=== PATIENT | female | born 1960 | race Caucasian/White ===

== ENCOUNTER 2023-11-27 10:57 | Outpatient (AMB) | payer MEDICARE, MEDICAID, SELFPAY ==
--- NOTE | 2023-11-27 11:00 | A.OFFVIS_ITS ---
Vital Signs 11/27/23 11:04 Height 5 ft 2 in Weight 203 lb 4 oz BMI 37.2 BP 117/71 Blood Pressure Location Lt brachial Position Sitting Pulse 66 Pulse Source Pulse Oximeter Pulse Oximetry (%) 98 Oxygen Delivery Method Room Air Intake Visit Reasons: Lumbar degenerative disc Material Cutter Required: Yes Material Cutter Language: Bahraini Accompanied by: Other Relationship Allergies No Known Allergies Allergy (Verified 11/27/23 11:14) HPI HPI Lumbar degenerative disc: Details: Patient is a pleasant 63 years old Bahraini female with prior history of lumbar degenerative disc disease, arthritis, gout, headaches, diabetes (A1C=8.5), obesity, CKD stage 2, presents today with left shoulder pain with radiation into her left side of the neck. Denies any past or recent trauma, injury or falls. Right hand dominant. Patient reports left shoulder pain for 6 months and chronic left hand numbness and tingling in left thumb, 2nd and 3rd fingers. Patient has difficulty with overhead reaches or reaching her back pockets. She reports difficulty putting on her clothes or doing her hair, difficulty sleeping on her left side or function normally with ADLs. Patient reports she underwent EMG studies several years ago at [facility]. She reports left hand with progressive weakness and difficulty holding, pulling or lifting objects. Reports minimal neck pain and states pain is localized to anterior and posterior aspects of left shoulder. She also reports chronic low back pain and mid back pain with radiation into her flank regions bilaterally. Denies any fever, chills, weight loss, dizziness, chest pain, shortness of breaths, gait imbalance, bladder or bowel dysfunction or saddle anesthesia. Location: Left shoulder, neck, left fingers numbness and tingling, back tenderness Duration: Shoulder~6 months, left hand ~chronic on and off, back~chronic Characteristics of symptom or complaint: Aching, sore, dull, tingling, numbness, heavy, shooting Aggravating or associated factors: Movements, lifting, pulling, overhead and backside reaches Relieving factors: Rest, activity modifications, topical applicatoins Treatment: None [facility] Medical History (Updated 11/29/23 @ 22:10 by VICKY Ortega) Epigastric pain Hyperuricemia Stage 2 chronic kidney disease Type 2 diabetes mellitus Lumbar degenerative disc disease Hyperlipidemia Hypertension Left cervical radiculopathy Review of Systems Const All systems reviewed & are unremarkable except as noted in HPI and below Reports as per HPI, Denies body aches, Denies chills, Reports difficulty sleeping, Reports fatigue, Denies fever(s), Reports headache(s), Denies malaise, Denies night sweats and Reports weakness (left hand) ENT Reports headache(s), Denies nasal congestion, Reports neck pain, Denies sinus pain and Denies sore throat Card Denies chest pain at rest, Denies claudication and Denies palpitations Resp Denies cough Denies hematuria, Denies difficulty voiding, Denies dysuria and Denies urinary incontinence Musc Reports back pain, Denies myalgias, Reports arthralgias, Denies joint swelling, Reports limited range of motion, Reports neck pain, Reports numbness, Reports radiating pain into limb and Reports stiffness Neuro Reports headache(s), Reports numbness and Reports weakness (left hand) Endo Reports fatigue and Denies palpitations Physical Exam Vital Signs: Last Vital Signs Pulse 66 11/27/23 11:04 BP 117/71 11/27/23 11:04 Pulse Ox 98 11/27/23 11:04 Oxygen Delivery Method Room Air 11/27/23 11:04 BMI result Body Mass Index 37.2 General: Appears afebrile. Alert and oriented. Mood and affect appropriate. Follows and participates in conversation appropriately. Respiratory effort is unlabored. No cough. No nasal discharge. Able to transition from sit to stand unassisted. Ambulates with bilaterally normal heel strike and toe off. Neck Neck: Yes no lymphadenopathy, Yes supple, No anterior neck swelling, Yes no JVD and Yes prominent dorsocervical fat pad General: Yes CVA tenderness (bilateral) Back/Spine/Pelvis Back: CVA tenderness (bilateral) Cervical Spine: cervical muscular tenderness, pain with cervical ROM (left lateral rotation and bending), cervical spasm (TTP to bilateral trapezius muscles) and No Cervical spine tenderness Thoracic/Lumbar Spine: thoracic and lumbar spine normal to inspection, No Thoracic/lumbar spine scar(s), Lasegue's sign negative, straight leg raise negative bilaterally, paraspinal muscle tenderness, No thoracic spinal tenderness and lumbar spinal tenderness at L4 and at L5 Pelvis: no buttock tenderness Sacroiliac joints: bilaterally nontender Extrem General: Yes capillary refill normal, Yes no clubbing, cyanosis or edema and Yes no calf tenderness Left upper extremity: shoulder/upper arm (Limited ROM, difficulty with overhead reach or reaching her back pockets) Details: inspection abnormal, tenderness Location: of the A-C joint, over the biceps tendon and over the subacromial bursa and crepitus; no swelling, no ecchymosis, no deformity and no unsual warmth and hand (+Phales test, 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 IMPRESSION: 1. Very limited examination secondary to motion and patient body habitus without discrete pancreatic lesions. Consider a repeat imaging if clinically deemed appropriate. 2. Hepatic steatosis. 3. Nonspecific T2 dark bandlike signal in the posterior surface of the right kidney with associated cortical thinning, possibly scarring. Assessment & Plan Assessment & Plan (1) Left shoulder pain: Code(s): M25.512 - Pain in left shoulder Category: Medical (2) Numbness and tingling of left upper extremity: Code(s): R20.0 - Anesthesia of skin; R20.2 - Paresthesia of skin Category: Medical (3) Bilateral flank pain: Code(s): R10.9 - Unspecified abdominal pain Category: Medical Plan: Will obtain Bilateral Renal US to further evaluate mid back and flank pain with +CVA tenderness. (4) Cervicalgia: Code(s): M54.2 - Cervicalgia Category: Medical (5) Lumbar degenerative disc disease: Code(s): M51.36 - Other intervertebral disc degeneration, lumbar region Category: Medical Plan Left shoulder xray to assess degree of arthritis. Discussed interventional treatments including diagnostic injections for potential neuromodulation, Sprint PNS trial, or RFA procedures. Given current A1C=8.5, patient is not candidate for therapeutic injections at this time. Neurodiagnostic studies to rule our carpal tunnel syndrome vs cervical radiculopathy. Short script of tramadol provided today for moderate-severe pain. Side effects and precautions were discussed with patient and family. All questions and concerns have been answered and patient agreed with the plan. Follow up for xray/EMG results and sooner as needed. Orders: Orders XR shoulder LT min 2V 11/27/23 M25.512 - Pain in left shoulder NE nerve conduction velocity 11/27/23 R20.0 - Anesthesia of skin, R20.2 - Paresthesia of skin NE electromyogram (EMG) 11/27/23 R20.0 - Anesthesia of skin, R20.2 - Paresthesia of skin US renal BI 11/27/23 E11.9 - Type 2 diabetes mellitus without complications, N18.2 - Chronic kidney disease, stage 2 (mild), R10.9 - Unspecified abdominal pain Medications: New tramadol 50 mg PO BID 10 days PRN 20 tabs 0RF pain (scale score 7-10) M25.512 - Pain in left shoulder Coding Level of Care Code New Pt Level 4 (98440) Diagnoses Left shoulder pain M25.512 Numbness and tingling of left upper extremity R20.0; R20.2 Bilateral flank pain R10.9 Cervicalgia M54.2 Lumbar degenerative disc disease M51.36
[2023-11-27 11:04] VITALS: BP 117/71; PULSE 66; O2SAT 98; BMI 37.2
== END 2023-11-27 11:53 | disposition home or self-care (01) ==
PROVIDERS: PCP Physician Assistant; Visit Provider Nurse Practitioner Family
DX: M25.512 Pain in left shoulder (principal); R20.0 Anesthesia of skin; R20.2 Paresthesia of skin; R10.9 Unspecified abdominal pain; M54.2 Cervicalgia; M51.36 Other intervertebral disc degeneration, lumbar region
CPT/HCPCS: 99204

== ENCOUNTER 2023-11-27 10:57 | Outpatient (REF) | payer MEDICARE, MEDICAID, SELFPAY ==
--- NOTE | ~2023-11-27 | XR_ITS ---
EXAMINATION: XR SHOULDER, LEFT CLINICAL INFORMATION: Pain in the left shoulder COMPARISON: None available. TECHNIQUE: AP external rotation, Grashey, scapular Y, and axillary views of the left shoulder. FINDINGS: Mild osteoarthritis of the glenohumeral joint with small marginal osteophytes without joint space narrowing. Mild osteoarthritis of the acromioclavicular joint. Surrounding bones and soft tissues unremarkable. XR/XR shoulder LT min 2V IMPRESSION: Mild osteoarthritis of the left shoulder. Electronically signed by: Colin Parada MD 12/03/2023 10:05 PM EDT
== END 2023-11-27 10:58 | disposition home or self-care (01) ==
LOC: HO.XRAY 10:57
PROVIDERS: PCP Physician Assistant; Visit Provider Nurse Practitioner Family
DX: M25.512 Pain in left shoulder (principal); R20.0 Anesthesia of skin; R20.2 Paresthesia of skin
CPT/HCPCS: 73030; 99202

== ENCOUNTER 2023-12-09 12:53 | Outpatient (REF) | payer MEDICARE, MEDICAID, SELFPAY ==
--- NOTE | ~2023-12-09 | US_ITS ---
EXAMINATION: US RETROPERITONEAL LIMITED (RENAL ONLY) CLINICAL INFORMATION: Type 2 diabetes mellitus.. COMPARISON: Ultrasound abdomen October 08, 2021. MR abdomen January 03, 2022 TECHNIQUE: Grayscale and color Doppler ultrasound examination of kidneys FINDINGS: RIGHT KIDNEY: 10.3 x 4.9 x 5.7 cm (SAG x AP x TRV). The kidney is normal in size, contour, and echogenicity. Renal cortical thickness is normal. No calculi or suspicious focal parenchymal lesions. Bosniak one anechoic cyst lower pole measuring 5.3 cm. No follow-up imaging is recommended for simple renal cyst. Mild dilatation of renal pelvis and calyces, mild hydronephrosis. LEFT KIDNEY: 11.1 x 4.2 x 4.8 cm (SAG x AP x TRV). The kidney is normal in size, contour, and echogenicity. Renal cortical thickness is normal. No calculi or focal parenchymal lesions. Mild fullness of left renal pelvis. No dilatation of the calyces. No hydronephrosis.. US/US renal BI IMPRESSION: 1. Mild hydronephrosis of right kidney. 2. Mild fullness of left renal pelvis. No hydronephrosis of left kidney. Electronically signed by: Bryce Espinoza MD 12/09/2023 04:21 PM EDT
== END 2023-12-09 12:54 | disposition home or self-care (01) ==
LOC: HO.US 12:53
PROVIDERS: PCP Physician Assistant; Visit Provider Nurse Practitioner Family
DX: R10.9 Unspecified abdominal pain (principal); N18.2 Chronic kidney disease, stage 2 (mild); E11.9 Type 2 diabetes mellitus without complications
CPT/HCPCS: 76775

== ENCOUNTER 2023-12-17 13:31 | Outpatient (REF) | payer MEDICARE, MEDICAID, SELFPAY ==
--- NOTE | 2023-12-17 13:35 | EMG_ITS ---
Chief complaint: Left upper extremity numbness and tingling for the last 6 months Reason for referral: Evaluate for radiculopathy Referred by: Mercy Bustamante NP Procedure done: Left upper extremity NCS/EMG Precautions and/or limitations: None The limb temperature was monitored continuously and remained between 32-36 degrees C during the performance of the NCS. Nerve Conduction Studies Anti Sensory Summary Table ?Stim Site NR Onset (ms) Norm Onset (ms) Peak (ms) Norm Peak (ms) O-P Amp (?V) Norm O-P Amp Site1 Site2 Delta-0 (ms) Dist (cm) Austin (m/s) Norm Austin (m/s) Left Median Anti Sensory (2nd Digit) Wrist ? 4.3 5.3 <3.6 8.2 >10 Wrist 2nd Digit 4.3 14.0 33 Left Radial Anti Sensory (Thumb) Forearm ? 1.7 2.3 <3.1 18.0 Forearm Thumb 1.7 0.0 Left Ulnar Anti Sensory (5th Digit) Wrist ? 0.9 3.4 <3.7 36.7 >15.0 Wrist 5th Digit 0.9 14.0 156 Motor Summary Table ?Stim Site NR Onset (ms) Norm Onset (ms) O-P Amp (mV) Norm O-P Amp iAmp (mV) Amp (1st) (%) Site1 Site2 Delta-0 (ms) Dist (cm) Austin (m/s) Norm Austin (m/s) Left Median Motor (Abd Poll Brev) Wrist ? 6.2 <3.9 5.0 >4.5 5.9 100.0 Elbow Wrist 4.2 20.0 48 >45 Elbow ? 10.4 4.7 5.6 94.0 Left Ulnar Motor (Abd Dig Minimi) Wrist ? 2.7 <3.0 8.4 >5 10.4 100.0 B Elbow Wrist 3.4 18.5 54 >45 B Elbow ? 6.1 7.8 10.3 92.9 A Elbow B Elbow 1.6 10.0 62 >45 A Elbow ? 7.7 7.6 10.2 90.5 EMG ?Side Muscle Nerve Root Ins Act Fibs Psw Amp Dur Poly Recrt Int Pat Comment Left 1stDorInt Ulnar C8-T1 Nml Nml Nml Nml Nml 0 Nml Complete Left FlexCarRad Median C6-7 Nml Nml Nml Nml Nml 0 Nml Complete Left Biceps Musculocut C5-6 Nml Nml Nml Nml Nml 0 Nml Complete Left Triceps Radial C6-7-8 Nml Nml Nml Nml Nml 0 Nml Complete Left Deltoid Axillary C5-6 Nml Nml Nml Nml Nml 0 Nml Complete FINDINGS: Left median motor nerve showed prolonged distal latency, normal amplitude and normal conduction velocity. Left median sensory nerve showed prolonged peak latencies and small amplitude. All other nerves tested were within normal. Concentric needle EMG was performed in selected muscles of the left upper extremity. Study did not reveal signs of electric abnormalities as shown in the table above. IMPRESSION: 1. This is an abnormal study. 2. There is electrodiagnostic evidence for left moderate-severe median neuropathy at the wrist, consistent with carpal tunnel syndrome. 3. There is no electrodiagnostic evidence for ulnar neuropathy, brachial plexopathy, or cervical radiculopathy. Thank you for your kind referral. Vera Rolle MD, THEA Board Certified, [place] Board of Physical Medicine and Rehabilitation (ABPMR) Board Certified, [place] Board of Electrodiagnostic Medicine (ABEM) CODIN [id number] MTDD
== END 2023-12-17 13:32 | disposition home or self-care (01) ==
LOC: HO.NEURO 13:31
PROVIDERS: PCP Physician Assistant; Visit Provider Nurse Practitioner Family
DX: R20.0 Anesthesia of skin (principal); R20.2 Paresthesia of skin
CPT/HCPCS: 95886; 95909

== ENCOUNTER → 2023-12-17 13:35 | Outpatient (BNV) | payer MEDICARE, MEDICAID, SELFPAY | PROVIDERS: PCP Physician Assistant; Visit Provider Physical Medicine & Rehabilitation | DX: G56.02 Carpal tunnel syndrome, left upper limb (principal) | CPT/HCPCS: 95886; 95909 ==

== ENCOUNTER 2024-01-19 11:13 | Outpatient (AMB) | payer MEDICARE, MEDICAID, SELFPAY ==
[2024-01-19 11:22] VITALS: BMI 37.1
--- NOTE | 2024-01-19 11:22 | A.OFFVIS_ITS ---
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 EMG done on 12/17/23 Patient reports that she has numbness and tingling in the 1st, 2nd and 3rd digits, difficulty with gripping, grasping and lifting activities. She has not tried injections or physical therapy. 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 The patient reports that his symptoms have been present for least 1-2 years. Patient states that she finds this extremely bothersome, but that symptoms are intermittent, but daily, and worse at night. Patient states she notices her hands cramping up on a regular basis, and also states that she noticed marked weakness beginning in the last 5- 6 months. The patient states that she would prefer noninvasive treatment measures. No other acute complaints or concerns at this time. [facility] Medical History (Updated 12/17/23 @ 15:57 by VICKY Ortega) Epigastric pain Hyperuricemia Stage 2 chronic kidney disease Type 2 diabetes mellitus Lumbar degenerative disc disease Hyperlipidemia Hypertension Left cervical radiculopathy Review of Systems Const All systems reviewed & are unremarkable except as noted in HPI and below Physical Exam Vital Signs: BMI result Body Mass Index 37.1 Extrem Other: Neuro: Decreased sensation in the median nerve distribution of the left hand. Normal sensation to all other digits in the left hand today. Normal sensation in the tips of all digits of the right hand today. No thenar or intrinsic wasting. Good APB muscle firing and good finger cross. Vascular: Capillary refill brisk. ROM: Patient can make a fist and extend all their digits. Skin: No lacerations or abrasions noted. General: No ecchymosis. No erythema or evidence of infection. Results Reviewed Results Reviewed: IMPRESSION: 1. This is an abnormal study. 2. There is electrodiagnostic evidence for left moderate-severe median neuropathy at the wrist, consistent with carpal tunnel syndrome. 3. There is no electrodiagnostic evidence for ulnar neuropathy, brachial plexopathy, or cervical radiculopathy. Thank you for your kind referral. Vera Rolle MD, THEA Board Certified, [place] Board of Physical Medicine and Rehabilitation (ABPMR) Board Certified, [place] Board of Electrodiagnostic Medicine (ABEM) Assessment & Plan Assessment & Plan (1) Carpal tunnel syndrome of left wrist: Code(s): G56.02 - Carpal tunnel syndrome, left upper limb Category: Medical Plan 1. Carpal tunnel syndrome, left Symptoms intermittent, daily, worse at night Patient is educated about this condition and the treatment options available, namely surgery However, due to the patient's A1c being 8.5, we are unable to sign up for surgery today Patient is educated on the importance of diabetes management not only for healing from surgery but for her overall health Patient is educated that she should call our office when her A1c is under 8 to have a discussion about surgical intervention In the meantime, patient was provided with a Velcro wrist splint to wear with sleeping in order to help with nighttime symptoms Patient will follow-up after A1c is below 8.0 for discussion of surgical intervention, sooner with any acute concerns Coding Level of Care Code New Pt Level 3 (17513) Diagnoses Carpal tunnel syndrome of left wrist G56.02
== END 2024-01-19 11:56 | disposition home or self-care (01) ==
LOC: HO.HOS 11:14
PROVIDERS: PCP Physician Assistant
DX: G56.02 Carpal tunnel syndrome, left upper limb (principal)
CPT/HCPCS: 99203

== ENCOUNTER → 2024-01-19 11:13 | Outpatient (BNVA) | payer MEDICARE, MEDICAID, SELFPAY | PROVIDERS: PCP Physician Assistant | DX: G56.12 Other lesions of median nerve, left upper limb (principal); G56.02 Carpal tunnel syndrome, left upper limb | CPT/HCPCS: 99202 ==

== ENCOUNTER 2024-01-27 13:53 | Outpatient (AMB) | payer MEDICARE, MEDICAID, SELFPAY ==
--- NOTE | 2024-01-27 13:59 | MHC.OFFVIS ---
Intake Visit Reasons: hydronephrosis without stones Intake Note: New Patient is present for Hydronephrosis without Stones Antibiotic Allergy: None Blood Thinner: None Renal US: 12/09/23 Family History: Bladder Cancer: None Prostate Cancer: None Community Outreach Coordinator Required: Yes Community Outreach Coordinator Language: Austrian Community Outreach Coordinator Services: Community Outreach Coordinator Present Childrens Club Attendant: Childrens Club Attendant Present Accompanied by: Family/Other Allergies No Known Allergies Allergy (Verified 01/27/24 14:02) HPI Comments Details: Bettina is a pleasant Austrian-speaking female. She is a patient of Dr. Akins. She is seen for the following urologic conditions - hydronephrosis Assisted Austrian translation using [employer] No symptoms Plan on laboratory review with Lasix renogram Hydronephrosis Detected during renal ultrasound Ultrasound - 12/07 Mild hydronephrosis of right kidney Creatinine - not available Recommend creatinine with Lasix renogram [facility] Medical History (Updated 12/17/23 @ 15:57 by VICKY Ortega) Epigastric pain Hyperuricemia Stage 2 chronic kidney disease Type 2 diabetes mellitus Lumbar degenerative disc disease Hyperlipidemia Hypertension Left cervical radiculopathy Review of Systems Const Denies chills and Denies fever(s) Card Reports no additional complaints and Denies syncope Resp Denies cough GI Denies abdominal pain and Denies heartburn Reports as per HPI and Denies change in libido Neuro Denies syncope Psych Denies change in libido Endo Denies change in libido Physical Exam Const General: cooperative, healthy appearing, comfortable and no acute distress Orientation/consciousness: patient oriented x3 HEENT Face and sinus: Yes normal facial exam Mouth: moist mucous membranes Neck Neck: Yes normal visual inspection, Yes full ROM and Yes trachea midline Chest Chest palpation & inspection: normal inspection of the chest Resp Effort & Inspection: normal respiratory effort, able to speak in complete sentences and no respiratory distress GI Inspection: Yes normal to inspection Back/Spine/Pelvis Cervical Spine: normal cervical lordosis Thoracic/Lumbar Spine: thoracic and lumbar spine normal to inspection Skin General skin exam: no rashes or lesions noted Neuro General: patient oriented x3, gait normal, tone normal and moves all extremities Extrem General: Yes normal to inspection and Yes capillary refill normal Assessment & Plan Assessment & Plan (1) Hydronephrosis: Code(s): N13.30 - Unspecified hydronephrosis Category: Medical Plan Lasix renogram Orders: Orders NM renal flow w pharm int Today N13.30 - Unspecified hydronephrosis Blood Urea Nitrogen Today N13.30 - Unspecified hydronephrosis, R39.15 - Urgency of urination Creatinine Today N13.30 - Unspecified hydronephrosis, R39.15 - Urgency of urination Patient Instructions: Imaging studies, laboratory and physical exam results were discussed and reviewed in detail. No major barriers to patient understanding were identified. An opportunity to ask questions regarding the treatment plan was provided. All questions were answered. The patient expressed understanding and agreement with the above treatment plan. The patient is aware they should contact our office by phone for worsening of their current condition or the appearance of new urologic symptoms. Compliance is encouraged with any medications and followup testing that is ordered. It is a privilege to participate in the urologic care of your patient. If you have any questions or concerns regarding treatment for the above conditions, or other urologic issues, please do not hesitate to contact me. The office telephone contact is [phone]. This note is constructed using voice recognition software. While every effort has been made to ensure accuracy audiovisual librarian errors may have been included. Yours sincerely, Dr Obi Gamboa MD, THEA [facility] Urology Providers of Expert, Compassionate Care for the Genitourinary System Coding Level of Care Code New Pt Level 4 (84919) Diagnoses Hydronephrosis N13.30
== END 2024-01-27 14:35 | disposition home or self-care (01) ==
PROVIDERS: PCP Physician Assistant; Visit Provider Urology
DX: N13.30 Unspecified hydronephrosis (principal)
CPT/HCPCS: 99204

== ENCOUNTER → 2024-01-27 13:53 | Outpatient (BNVA) | payer MEDICARE, MEDICAID, SELFPAY | PROVIDERS: PCP Physician Assistant; Visit Provider Urology | DX: N13.30 Unspecified hydronephrosis (principal) | CPT/HCPCS: 99202 ==

== ENCOUNTER → 2024-03-03 10:11 | Outpatient (REF) | payer MEDICARE, MEDICAID, SELFPAY ==
--- NOTE | ~2024-03-03 | NM_ITS ---
EXAMINATION: RENAL DYNAMIC IMAGING STUDY WITH LASIX CLINICAL INFORMATION: Unspecified hydronephrosis. CORRELATION: Retroperitoneal ultrasound dated December 09, 2023. TECHNIQUE: Serial gamma scintillation camera images were obtained over the posterior trunk during the initial transit and subsequent distribution of a bolus intravenous injection of 10 mCi of Tc-99m DTPA. At 30 minutes later, 40 mg of Lasix was administered intravenously and an additional 30 minutes of images obtained. FINDINGS: Initial rapid sequence images show prompt but relatively less perfusion to the right in comparison to the left. On the subsequent images: - Left kidney: There is normal parenchymal uptake with peak followed by normal corticomedullary transit with expected accumulation and spontaneous clearance from the left renal collecting system. - Right kidney: The right kidney is relatively smaller with normal radiotracer uptake and peak followed by corticomedullary transit. There is minimal to no demonstrable spontaneous clearance from the right renal collecting system with continued radiotracer accumulation. There is moderate response following Lasix administration. The T-1/2 washout times following Lasix administration are: Left not applicable and right 20.2 minutes. The relative function of the two kidneys based on the 2-3 minute images are: Left 73% and right 27%. NM/NM renal flow w pharm int IMPRESSION: LEFT KIDNEY: Normal function. RIGHT KIDNEY: Significantly less functional contribution related to the left. Preserved parenchymal function and dilated but nonobstructing collecting system. Electronically signed by: Barbara Mason MD 03/10/2024 12:22 PM ALE[facility]A
[2024-03-03 12:15] LABS: Blood Urea Nitrogen 31 mg/dL (9-16); Estimated Glomerular Filt Rate 32
== END ==
LOC: HO.NUCMED 10:11
PROVIDERS: PCP Physician Assistant; Visit Provider Urology
DX: R39.15 Urgency of urination (principal); N13.30 Unspecified hydronephrosis
CPT/HCPCS: 36415; 78708; 82565; 84520; A9539; J1940

== ENCOUNTER 2024-03-23 10:56 | Outpatient (AMB) | payer MEDICARE, MEDICAID, SELFPAY ==
--- NOTE | 2024-03-23 11:30 | MHC.OFFVIS ---
Intake Visit Reasons: 6W Lasix Renogram(set) Intake Note: Patient is present for 6W LASIX RENOGRAM Urology Medication:ALLOPURINOL Antibiotic Allergy:NONE Blood Thinner:NONE Drawbench Operator Helper Required: No Allergies No Known Allergies Allergy (Verified 03/23/24 11:31) HPI Comments Details: Bettina is a pleasant Azerbaijani-speaking female. She is a patient of Dr. Akins. She is seen for the following urologic conditions - hydronephrosis Assisted [place]ani translation using [employer] translate Renogram performed The relative function of the two kidneys based on the 2-3 minute images are: Left 73% and right 27%. LEFT KIDNEY: Normal function. RIGHT KIDNEY: Significantly less functional contribution related to the left. Preserved parenchymal function and dilated but nonobstructing collecting system. Creatinine 1.6 Refer Nephrology Six-month follow-up repeat renogram Hydronephrosis Detected during renal ultrasound Ultrasound - 12/07 Mild hydronephrosis of right kidney Creatinine - not available Recommend creatinine with Lasix renogram PFSH Medical History Epigastric pain Hyperuricemia Stage 2 chronic kidney disease Type 2 diabetes mellitus Lumbar degenerative disc disease Hyperlipidemia Hypertension Left cervical radiculopathy Review of Systems Const Denies chills and Denies fever(s) Card Reports no additional complaints and Denies syncope Resp Denies cough GI Denies abdominal pain and Denies heartburn Reports as per HPI and Denies change in libido Neuro Denies syncope Psych Denies change in libido Endo Denies change in libido Physical Exam Const General: cooperative, healthy appearing, comfortable and no acute distress Orientation/consciousness: patient oriented x3 HEENT Face and sinus: Yes normal facial exam Mouth: moist mucous membranes Neck Neck: Yes normal visual inspection, Yes full ROM and Yes trachea midline Chest Chest palpation & inspection: normal inspection of the chest Resp Effort & Inspection: normal respiratory effort, able to speak in complete sentences and no respiratory distress GI Inspection: Yes normal to inspection Back/Spine/Pelvis Cervical Spine: normal cervical lordosis Thoracic/Lumbar Spine: thoracic and lumbar spine normal to inspection Skin General skin exam: no rashes or lesions noted Neuro General: patient oriented x3, gait normal, tone normal and moves all extremities Extrem General: Yes normal to inspection and Yes capillary refill normal Assessment & Plan Assessment & Plan (1) Kidney atrophy: Code(s): N26.1 - Atrophy of kidney (terminal) Category: Medical (2) Hydronephrosis: Code(s): N13.30 - Unspecified hydronephrosis Category: Medical Plan Six-month follow-up repeat Lasix renogram Orders: Orders NM renal flow w pharm int 6 Months N13.30 - Unspecified hydronephrosis, N26.1 - Atrophy of kidney (terminal) Referrals Nephrology Referral N26.1 - Atrophy of kidney (terminal) Patient Instructions: Imaging studies, laboratory and physical exam results were discussed and reviewed in detail. No major barriers to patient understanding were identified. An opportunity to ask questions regarding the treatment plan was provided. All questions were answered. The patient expressed understanding and agreement with the above treatment plan. The patient is aware they should contact our office by phone for worsening of their current condition or the appearance of new urologic symptoms. Compliance is encouraged with any medications and followup testing that is ordered. It is a privilege to participate in the urologic care of your patient. If you have any questions or concerns regarding treatment for the above conditions, or other urologic issues, please do not hesitate to contact me. The office telephone contact is [phone]. This note is constructed using voice recognition software. While every effort has been made to ensure accuracy rn internship errors may have been included. Yours sincerely, Dr Obi Gamboa MD, [facility] - Urology Providers of Expert, Compassionate Care for the Genitourinary System Coding Level of Care Code Est Pt Level 3 (72221) Diagnoses Kidney atrophy N26.1 Hydronephrosis N13.30
== END 2024-03-23 11:57 | disposition home or self-care (01) ==
PROVIDERS: PCP Physician Assistant; Visit Provider Urology
DX: N26.1 Atrophy of kidney (terminal) (principal); N13.30 Unspecified hydronephrosis
CPT/HCPCS: 99213

== ENCOUNTER → 2024-03-23 10:56 | Outpatient (BNVA) | payer MEDICARE, MEDICAID, SELFPAY | PROVIDERS: PCP Physician Assistant; Visit Provider Urology | DX: N26.1 Atrophy of kidney (terminal) (principal); N13.30 Unspecified hydronephrosis | CPT/HCPCS: 99212 ==

== ENCOUNTER 2024-04-07 13:04 | Outpatient (REF) | payer MEDICARE, MEDICAID, SELFPAY | END 2024-04-07 13:05 | disposition home or self-care (01) | LOC: HO.LAB 13:04 | PROVIDERS: PCP Physician Assistant; Referring Provider Urology; Visit Provider Internal Medicine Hypertension Specialist | DX: E11.22 Type 2 diabetes mellitus with diabetic chronic kidney disease (principal); I12.9 Hypertensive chronic kidney disease with stage 1 through stage 4 chronic kidney disease, or unspecified chronic kidney disease; N18.30 Chronic kidney disease, stage 3 unspecified; Z79.4 Long term (current) use of insulin | CPT/HCPCS: 99202 ==

== ENCOUNTER 2024-04-07 13:04 | Outpatient (AMB) | payer MEDICARE, MEDICAID, SELFPAY ==
--- NOTE | 2024-04-07 13:08 | HO.NEPHOV ---
Vital Signs 04/07/24 13:09 Height 5 ft 2 in Weight 209 lb BMI 38.2 BP 100/64 Blood Pressure Location Lt brachial Position Sitting Pulse 67 Pulse Source Pulse Oximeter Pulse Oximetry (%) 95 Oxygen Delivery Method Room Air Intake Visit Reasons: INP: Atrophy of kidney (terminal) Assistant Finance Director Required: Yes Assistant Finance Director Name: Hector [id number] Accompanied by: Self / Same As Patient Allergies No Known Allergies Allergy (Verified 04/07/24 13:11) Medication List - Last Reconciled 04/07/24 by Abdifatah Estrada MD allopurinol 300 mg PO DAILY aspirin 81 mg PO DAILY atorvastatin 80 mg PO BEDTIME bisoprolol fumarate 2.5 mg PO DAILY calcium carbonate-vitamin D3 500 mg-5 mcg (200 unit) (Oysco 500/D) 1 tab PO DAILY colchicine 0.6 mg PO DAILY dapagliflozin propanediol (Farxiga) 10 mg PO DAILY glimepiride 4 mg PO QAM insulin glargine-yfgn units subcut isosorbide mononitrate ER 30 mg PO DAILY lisinopril 20 mg PO DAILY semaglutide (Ozempic) mg subcut QWEEK vitamin E mixed units PO HPI Comments Details: Bettina is a pleasant 63-year-old woman referred for a while patient of CKD. She has had diabetes mellitus for more than 15 years. In 03/04/2024 she had a serum creatinine of 1.6 and EGFR of 30 mL/minute. She was found to have mild hydronephrosis on right kidney and mild fullness of the left pelvis without hydronephrosis. Right kidney measured 10.3 cm left kidney measured 11.1 cm. This was followed by a renal scan which revealed a normal left kidney and significantly less functional contribution from the right kidney. She was seen by Urology and referred for further evaluation. Assistant Finance Director service was used. She has been on Ozempic for quite some time. She was lost about 30 lb. Blood pressure has been rather low and she has had episodes of lightheadedness. No history of syncope. No shortness of breath no chest pain no urinary symptoms no fever no rash no edema. No rash no joint pains. [facility] Medical History Epigastric pain Hyperuricemia Stage 2 chronic kidney disease Type 2 diabetes mellitus Lumbar degenerative disc disease Hyperlipidemia Hypertension Left cervical radiculopathy Review of Systems Const Denies fever(s) and Denies weight loss Card Denies chest pain Resp Denies cough and Denies hemoptysis GI Denies abdominal pain, Denies diarrhea and Denies nausea Musc Denies back pain Neuro Denies focal weakness Physical Exam Vital Signs: Last Vital Signs Pulse 67 04/07/24 13:09 BP 100/64 04/07/24 13:09 Pulse Ox 95 04/07/24 13:09 Oxygen Delivery Method Room Air 04/07/24 13:09 BMI result Body Mass Index 38.2 Comfortable Neck supple no JVD. Lungs entry equal no rales. Heart S1-S2 heard no gallop or rub. Abdomen soft nontender. Neuro alert awake oriented. No asterixis. Extremities no edema. Results Reviewed Results Reviewed: RIGHT KIDNEY: 10.3 x 4.9 x 5.7 cm (SAG x AP x TRV). The kidney is normal in size, contour, and echogenicity. Renal cortical thickness is normal. No calculi or suspicious focal parenchymal lesions. Bosniak one anechoic cyst lower pole measuring 5.3 cm. No follow-up imaging is recommended for simple renal cyst. Mild dilatation of renal pelvis and calyces, mild hydronephrosis. LEFT KIDNEY: 11.1 x 4.2 x 4.8 cm (SAG x AP x TRV). The kidney is normal in size, contour, and echogenicity. Renal cortical thickness is normal. No calculi or focal parenchymal lesions. Mild fullness of left renal pelvis. No dilatation of the calyces. No hydronephrosis.. US/US renal BI IMPRESSION: 1. Mild hydronephrosis of right kidney. 2. Mild fullness of left renal pelvis. No hydronephrosis of left kidney. Electronically signed by: Bryce Espinoza MD 12/09/2023 04:21 PM EDT RP FINDINGS: Initial rapid sequence images show prompt but relatively less perfusion to the right in comparison to the left. On the subsequent images: - Left kidney: There is normal parenchymal uptake with peak followed by normal corticomedullary transit with expected accumulation and spontaneous clearance from the left renal collecting system. - Right kidney: The right kidney is relatively smaller with normal radiotracer uptake and peak followed by corticomedullary transit. There is minimal to no demonstrable spontaneous clearance from the right renal collecting system with continued radiotracer accumulation. There is moderate response following Lasix administration. The T-1/2 washout times following Lasix administration are: Left not applicable and right 20.2 minutes. The relative function of the two kidneys based on the 2-3 minute images are: Left 73% and right 27%. NM/NM renal flow w pharm int IMPRESSION: LEFT KIDNEY: Normal function. RIGHT KIDNEY: Significantly less functional contribution related to the left. Preserved parenchymal function and dilated but nonobstructing collecting system. Electronically signed by: Barbara Mason MD 03/10/2024 12:22 PM [facility] [employer] Nephrology Results: BUN 31 mg/dL (9-16) H 03/03/24 Creatinine 1.61 mg/dL (0.5-1.4) H 03/03/24 Renal US 12/09/23 Assessment & Plan Assessment & Plan (1) CKD (chronic kidney disease) stage 3, GFR 30-59 ml/min: Code(s): N18.30 - Chronic kidney disease, stage 3 unspecified Category: Medical Plan 62-year-old woman with longstanding diabetes mellitus and obesity has CKD 3B. She probably has underlying diabetic kidney disease. Renal ultrasonogram revealed mild hydronephrosis but I doubt if obstructive uropathy is the main contributing factor. Blood pressure has been well controlled. In fact office reading was slightly low today. There could be a component of hypoperfusion. Recommendations Workup initiated for CKD. Check urine for routine urinalysis and urine protein creatinine ratio. Check 24 urine collection for creatinine clearance. Optimize blood pressure. Since she is losing weight I suspect blood pressure might decrease further. If systolic blood pressure drops further I will decrease the lisinopril by 50%. Continue to avoid hypotension and avoid nephrotoxic agents. Goal is to slow the progression of renal disease. I have discussed importance of tight control of blood sugar to slow the progression. She is currently on SGLT2 inhibitor and I would continue the same. All questions were answered. Further workup will depend on the outcome of the baseline investigations. Orders: Orders Creatinine Clearance Urine 24U Today N26.1 - Atrophy of kidney (terminal) Parathyroid Hormone Intact Today N26.1 - Atrophy of kidney (terminal) Protein, 24 Hr Urine Group Today N26.1 - Atrophy of kidney (terminal) Creatinine, 24 Hr Group Today N26.1 - Atrophy of kidney (terminal) Comprehensive Met. Panel Today N26.1 - Atrophy of kidney (terminal) UA and rflx microscopic Today N26.1 - Atrophy of kidney (terminal) Uric Acid Today N26.1 - Atrophy of kidney (terminal) Coding Level of Care Code New Pt Level 4 (35777) Diagnoses CKD (chronic kidney disease) stage 3, GFR 30-59 ml/min N18.30
[2024-04-07 13:09] VITALS: BP 100/64; PULSE 67; O2SAT 95; BMI 38.2
== END 2024-04-07 13:29 | disposition home or self-care (01) ==
PROVIDERS: PCP Physician Assistant; Referring Provider Urology; Visit Provider Internal Medicine Hypertension Specialist
DX: N18.30 Chronic kidney disease, stage 3 unspecified (principal)
CPT/HCPCS: 99204

== ENCOUNTER 2024-04-12 09:52 | Outpatient (REF) | payer MEDICARE, MEDICAID, SELFPAY ==
--- OUTSIDE RECORDS SUMMARY | 2024-04-12 10:29 | XMS_ITS | Clinical Summary ---
Author Organization [facility] Address [address] [place] [address] Care Team Providers Care Concrete Curer Name Role Phone Roslyn Akins PA-C Primary Care Provider [phone] Source Comments PLEASE NOTE, if this patient is a minor, it may be UNLAWFUL to discuss sensitive information that is contained in these records (such as FAMILY PLANNING, MENTAL HEALTH or SUBSTANCE ABUSE) with the minor patient's parent or other person without the patient's specific authorization.[facility] Allergies No known active allergies Medications ascorbic acid, vitamin C, (VITAMIN C) 500 mg tabletIndication s:Acute idiopathic gout of left foot Take 1 Tab by mouth once daily 90 Tab 2 020 Active esomeprazole magnesium (NEXIUM) [address] capsule TAKE 1 CAPSULE BY MOUTH EVERY DAY NEEDED FOR HEARTBURN 90 Capsule 2 022 Active isosorbide mononitrate (IMDUR) 30 mg 24 hr tabletIndication s:Essential hypertension, benign TAKE 1 TABLET BY MOUTH EVERY MORNING 90 Tablet 2 022 Active atorvastatin (LIPITOR) 20 mg tabletIndication s:Hyperlipidemia , mixed TAKE 1 TABLET BY MOUTH EVERY NIGHT AT BEDTIME 90 Tablet 3 022 Active MISCELLANEOUS MEDICAL SUPPLY MISCIndications: Routine general medical examination at a health care facility by miscellaneous route once daily 20-30 mmHG knee high compression stockings, disp 2 pairs, dx venous insufficiency 2 Each 023 Active linaCLOtide 145 mcg capIndications:F unctional constipation Take 1 Capsule by mouth every morning before breakfast 90 Capsule 1 023 Active colchicine 0.6 mg tabletIndication s:Hyperuricemia TAKE 2 TABLETS BY MOUTH ON DAY 1 THEN 1 TABLET TWICE DAILY UNTIL GOUT FLARE RESOLVES 60 Tablet 11 024 Active traZODone (DESYREL) 50 mg tabletIndication s:Primary insomnia 1-2 tabs po qhs prn insomnia 180 Tablet 1 024 Active alcohol swabsIndications :Type 2 diabetes mellitus without complication, without long-term current use of insulin ([facility]) Use qd, dx E11.9 50 Each 11 024 Active lancets (FREESTYLE LANCETS) 28 gaugeIndications :Type 2 diabetes mellitus without complication, without long-term current use of insulin ([facility]) Freestyle lite lancets, use QD, dx E11.9 50 Each 024 Active blood sugar diagnostic stripsIndication s:Type 2 diabetes mellitus without complication, without long-term current use of insulin ([facility]) 1 Each daily. Freestyle lite strips use QD, dx E11.9 50 Each 024 Active blood-glucose meter monitoring kitIndications:T ype 2 diabetes mellitus without complication, without long-term current use of insulin ([facility]) 1 Each daily. Freestyle lite meter, disp 1, lifetime need, dx E11.9 1 Each 024 Active dapagliflozin propanediol 10 mg tabIndications:T ype 2 diabetes mellitus without complication, without long-term current use of insulin ([facility]) TAKE 1 TABLET BY MOUTH DAILY 90 Tablet 2 024 Active diclofenac sodium (VOLTAREN) 1 % gel Apply a small amount to finger joint QID 100 g 11 Active lidocaine (LIDODERM) 5 % patchIndications :Chronic left shoulder pain Apply 1 patch to the affected area for a maximum of 12 hours, followed by removal for 12 hours. 30 Patch 4 024 Active betamethasone valerate (VALISONE) 0.1 % creamIndications :Atopic dermatitis, unspecified type Apply topically 2 (two) times daily 60 g 3 Active OYSCO 500/D 500 mg-5 mcg (200 unit) per tabletIndication s:Non morbid obesity TAKE 1 TABLET BY MOUTH EVERY DAY 90 Tablet 2 Active bisoprolol (ZEBETA) 5 mg tablet TAKE 1 TABLET BY MOUTH EVERY DAY 90 Tablet 2 0[address] Active aspirin [address] tabletIndication s:Type 2 diabetes mellitus without complication, without long-term current use of insulin ([facility]) TAKE 1 TABLET BY MOUTH ONCE DAILY 90 Tablet 1 024 Active isosorbide mononitrate ER (IMDUR) 30 mg 24 hr tabletIndication s:Essential hypertension, benign TAKE 1 TABLET BY MOUTH EVERY MORNING 90 Tablet 2 024 Active insulin glargine 100 unit/mL (3 mL) penIndications:T ype 2 diabetes mellitus without complication, without long-term current use of insulin ([facility]) Inject 15 Units into the skin once daily 15 mL 5 024 Active lisinopriL 20 mg tabletIndication s:Essential hypertension, benign Take 0.5 Tablets by mouth nightly at bedtime Active clobetasoL (TEMOVATE) 0.05 % ointmentIndicati ons:Lichen sclerosus of vulva Apply topically nightly at bedtime Please apply to vulva every night for 12 weeks then taper to once or twice a week at night. 60 g 3 024 Active glimepiride (AMARYL) 4 mg tabletIndication s:Uncontrolled type 2 diabetes mellitus with hyperglycemia ([facility]) TAKE 1 TABLET BY MOUTH EVERY DAY WITH BREAKFAST 90 Tablet 2 024 Active allopurinoL (ZYLOPRIM) 300 mg tabletIndication s:Acute idiopathic gout of left foot TAKE 1 TABLET BY MOUTH EVERY DAY WITH LUNCH 90 Tablet 2 024 Active semaglutide (OZEMPIC) 1 mg/dose (4 mg/3 mL) pen injectorIndicati ons:Type 2 diabetes mellitus without complication, without long-term current use of insulin ([facility]) Inject 1 mg into the skin once a week 9 mL 4 024 Active BD JINA 2ND GEN PEN NEEDLE 32 gauge x 32 ndleIndications: Uncontrolled type 2 diabetes mellitus with hyperglycemia ([facility]) USE DIRECTED EVERY DAY 100 Each 025 Active BD JINA 2ND GEN PEN NEEDLE 32 gauge x 532 ndleIndications: Uncontrolled type 2 diabetes mellitus with hyperglycemia ([facility]) USE DIRECTED WITH LANTUS EVERY DAY 100 Each 024 2024 Discontinued Active Problems Problem Noted Date Diagnosed Date Obstructive sleep apnea of adult 11/04/2022 Multiple RIGHT thyroid nodules 03/2022 3 Stage 2 chronic kidney disease 03/11/2021 History of echocardiogram 07/01/2017, 04/2021 Overview (06/25/2021): Result type: Echocardiogram - Complete Result date: May 09, 2021 10:36 EST Result status: Modified Result title: Echo Complete Performed by: Emma Mccurdy MD on May 09, 2021 10:36 EST Verified by: Emma Mccurdy MD on May 09, 2021 10:36 EST Encounter info: [id number], [facility], One Time OP, 05/09/2021 - 05/09/2021 Contributor system: ZPower Echo Complete-Doppler, Colorflow, M-Mode Transthoracic Echocardiography Report (TTE) Patient Demographics Patient Name CINDA, Date of Study 05/09/2021 [facility] Gender Female Facility Race Ethnicity Date of 1960 Height: 62.6 inches Age 60 year(s) Weight: 238.1 pounds Accession Number [id number] BSA: 2.07 m2 Room Number BMI: 42.72 kg/m2 Referring Physician Margie BOB Interpreting Emma Mccurdy MD Physician [employer] [place] Indications Chest pain. Clinical History CM HLD HTN VEL Study Data Type of Study TTE procedure:Echo Complete-Doppler, Colorflow, M-Mode. Study Date05/09/2021 Start Time: 10:36 AM Study Location: 3300 Adult Echo Study Status: Echo lab Patient Status: Routine Technical Quality: Adequate Blood Pressure:149/85 mmHg EKG: Sinus arrhythmia HR: 76 bpm 2D Measurements LV Diastolic Dimension: 5 cm LV Systolic Dimension: 3.4 cm LV Septum Diastolic: 0.8 cm LV PW Diastolic: 1 cm AO Root Dimension: 3 cm LA Dimension: 3.4 cm LA ESV (BP):56 ml LVOT Stroke Volume: 96.88 ml LA ESV Index: 27 ml/m2 Stroke Volume Index46.8 ml/m2 LVOT: 2.2 cm Cardiac Index:3.56 l/min/m2 Ascending Aorta:2.8 cm Doppler Measurements AV Peak Velocity: 172 cm/s MV Peak E-Wave: 101 cm/s AV Peak Gradient: 11.83 mmHg MV Peak A-Wave: 84.4 cm/s MV E/A Ratio: 1.2 LVOT Peak Velocity: 114 cm/s LVOT VTI25.5 cm MV Deceleration Time: 243 msec TR Velocity:130 cm/s TR Gradient:6.76 mmHg PV Peak Velocity: 88 cm/s E' Septal Velocity: 5.88 cm/s PV Peak Gradient: 3.1 mmHg E' Lateral Velocity: 7.9 cm/s E/Med E':17.72013 E/Lat E':12.20330 Cardiac Anatomy Left Ventricle/Interventricular Septum The wall thickness of the left ventricle is normal. The left ventricle is normal size. Ejection fraction is 55-60% overall. No definite wall motion abnormalities detected. Diastolic function was indeterminant. Left Atrium/Interatrial Septum The left atrium is normal in size. An atrial septal defect cannot be excluded. Aortic Valve No significant regurgitation or stenosis. Mitral Valve No significant regurgitation. Aorta The ascending aorta and aortic root are normal in size when indexed. Right Ventricle The right ventricle is mildly dilated. Function is preserved overall. Right Atrium The right atrium is dilated. Pulmonic Valve The pulmonic valve is poorly visualized. No significant regurgitation or stenosis. Tricuspid Valve No significant regurgitation. No stenosis. Pumonary Artery The pulmonary artery systolic pressure estimation is 25-35 mmHg. Venous Structures IVC is normal in size. Inspiratory collapse is likely close to normal. Pericardium/Extracardiac No significant pericardial effusion. Summary The wall thickness of the left ventricle is normal. The left ventricle is normal size. Ejection fraction is 55-60% overall. No definite wall motion abnormalities detected. Diastolic function was indeterminant. The left atrium is normal in size. The right ventricle is mildly dilated. Function is preserved overall. The right atrium is dilated. The pulmonary artery systolic pressure estimation is 25-35 mmHg. Comparison Comparison is made to the study of June 29, 2017. Signature Echo Complete This document has an image Result type: Echocardiogram - Complete Result date: June 29, 2017 10:07 EDT Result status: Modified Result title: Echo Complete Performed by: Sue Humphrey MD on June 29, 2017 10:07 EDT Verified by: Sue Humphrey MD on June 29, 2017 10:07 EDT Encounter info: [id number], [facility], One Time OP, 06/29/2017 - 06/29/2017 Contributor system: ZPower Echo Complete This document has an image Echo Complete-Doppler, Colorflow, M-Mode Transthoracic Echocardiography Report (TTE) Patient Demographics Patient Name CINDA, Date of Study 06/29/[address] Gender Female Facility Race Ethnicity Date of 1960 Height: 63 inches Age 56 year(s) Weight: 245.01 pounds Accession Number [id number] BSA: 2.11 m2 Room Number BMI: 43.4 kg/m2 Referring Physician Margie BOB Interpreting Sue Humphrey MD Physician [employer] And Inspector Portia Sandoval [employer] Indications Chest pain. Clinical History Hypertension. Diabetes Mellitus. Hyperlipidemia. VEL on CPAP Obesity. Study Data Type of Study TTE procedure:Echo Complete-Doppler, Colorflow, M-Mode. Study Date06/29/2017 Start Time: 10:07 AM Study Location: 3300 Adult Echo Study Status: Echo lab Patient Status: Routine Technical Quality: Adequate Blood Pressure:130/78 mmHg EKG: Indeterminate HR: 68 bpm 2D Measurements LV Diastolic Dimension: 5.4 cm LV Systolic Dimension: 4.1 cm LV Septum Diastolic: 0.9 cm LV PW Diastolic: 0.9 cm AO Root Dimension: 2.8 cm LA Dimension: 3.6 cm LVOT Stroke Volume: 59.03 ml LVOT: 2 cm Stroke Volume Index27.98 ml/m2 Cardiac Index:1.9 l/min/m2 Doppler Measurements AV Peak Velocity: 164 cm/s MV Peak E-Wave: 76 cm/s AV Peak Gradient: 10.76 mmHg MV Peak A-Wave: 78 cm/s MV E/A Ratio: 0.97 LVOT Peak Velocity: 86.5 cm/s LVOT VTI18.8 cm MV Deceleration Time: 158 msec TR Velocity:263 cm/s TR Gradient:27.67 mmHg PV Peak Velocity: 113 cm/s E' Septal Velocity: 4.87 cm/s PV Peak Gradient: 5.11 mmHg E' Lateral Velocity: 8.68 cm/s E/Med E':15.88880 E/Lat E':8.61266 Cardiac Anatomy Left Ventricle/Interventricular Septum The left ventricle is normal in size, wall thickness and systolic function. The ejection fraction is 55-65%. No regional wall motion abnormalities seen. Left Atrium/Interatrial Septum The left atrium is normal in size. Aortic Valve The aortic valve is poorly visualized but probably trileaflet. There may be some mild aortic stenosis. There is no aortic insufficiency Mitral Valve The mitral valve is normal in structure and function. There is trace mitral regurgitation. Aorta The aortic root is normal in size. The ascending aorta is not well visualized. Right Ventricle The right ventricle is normal in size and function. Right Atrium The right atrium is normal in size. Pulmonic Valve The pulmonic valve is functionally normal. Tricuspid Valve The tricuspid valve is normal in structure and function. There is trace regurgitation. Pumonary Artery The pulmonary artery systolic pressure estimation is 30-35 mmHg. Venous Structures The inferior vena cava appears normal. Pericardium/Extracardiac There is no pericardial effusion. Summary The left ventricle is normal in size, wall thickness and systolic function. The ejection fraction is 55-65%. No regional wall motion abnormalities seen. Normal diastolic function. The aortic valve is poorly visualized but probably trileaflet. There may be some mild aortic stenosis. There is no aortic insufficiency. The right ventricle is normal in size and function. The tricuspid valve is normal in structure and function. There is trace regurgitation.The pulmonary artery systolic pressure estimation is 30-35 mmHg. Comparison Comparison is made to the study of January 28, 2012. There is no significant change. Signature Tinnitus of both ears 11/29/2020 Suspected COVID-19 virus infection 05/2019 Malaise and fatigue 12/06/2015 Primary insomnia 12/06/2015 Hot flashes due to menopause 12/06/2015 Microalbuminuria 05/22/2015 Venous insufficiency 03/30/2015 Essential hypertension, benign 03/15/2013 Type 2 diabetes mellitus wit hout complication, without long-term current use of insulin ([facility]) 03/15/2013 Overview (05/30/2015): Opthal exam 04/2015 Dr. Narvaez @ [facility], no retinopathy Non morbid obesity 03/15/2013 Hyperlipidemia, mixed 03/15/2013 Lumbar degenerative disc disease 03/15/2013 Knee osteoarthritis 03/15/2013 Hyperuricemia 03/15/2013 Renal cyst, right 01/2013 ultrasound 03/15/2013 Encounters Date Type Department Care Team Description 02/01/2024 3:00 PM EST Telemedicine Visit [address] [phone] Roslyn Akins PA-C Essential hypertension, benign (Primary Dx); Type 2 diabetes mellitus without complication, without long-term current use of insulin ([facility]); Non morbid obesity; Hyperlipidemia, mixed; Hyperuricemia; Microalbuminuria 02/01/2024 Travel from Last 3 Months Immunizations Name Administration Dates Next Due PNEUMOCOCCAL CONJUGATE PCV 20 (Prevnar) 11/05/19 23 PNEUMOCOCCAL POLYSACCHARIDE PPV23 03/15/2013 Social History Tobacco Use Types Packs/Day Years Used Date Smoking Tobacco: Never Smokeless Tobacco: Never Tobacco Cessation:Counseling Given: Not Answered Alcohol Use Standard Drinks/Week Comments No 0 (1 standard drink = 0.6 oz pur e alcohol) Social Connections Answer Date Recorded Connectedness 1 04/28/2023 Financial Resource Strain Answer Date R ecorded Financial Resource Strain 1 2023 Stress Answer Date Recorded Stress 1 04/28/2023 Physical Activity Answer Date Recorded Physical Activity 0 11/02/2018 Food Insecurity Answer Date Recorded Food 1 04/28/2023 Transportation Needs Answer Date Record ed Transportation 1 04/28/2023 Housing Stability Answer Date Recorded Housing 1 04/28/2023 Safety and Environment Answer Date Wilner rded Safety 1 04/28/2023 Utilities Answer Date Recorded Utilities 1 04/28/2023 Employment Answer Date Recorded Stress 0 04/28/2023 Comments No Sex and Gender Information Value Date Recorded Sex Assigned at Female 01/19/2017 5:46 PM PST Legal Sex Female 11:36 AM PDT Gender Identity Female 01/19/2017 5:46 PM PST Sexual Orientation Straight 01/19/2017 5: 46 PM PST Last Filed Vital Signs Vital Sign Reading Time Taken Comments Blood Pressure 124/82 12/15/2023 1:12 PM EDT Pulse 62 12/15/2023 1:12 PM EDT Temperature 36.7 ??C (98 ??F) 12/15/2023 1:12 PM EDT Respiratory Rate 16 12/15/2023 1:12 PM EDT Oxygen Saturation 97% 12/15/2023 1:12 PM EDT Inhaled Oxygen Concentration - - Weight 93.4 kg (206 lb) 12/15/2023 1:12 PM EDT Height 157.5 cm (5' 2 ) 11/10/2023 2:48 PM EDT Body Mass Index 37.68 11/10/2023 2:48 PM EDT Plan of Treatment Upcoming Encounters Date Type Department Care Team (Late st Contact Info) Description 04/18/2024 11:00 AM EST Telemedicine Visit [facility] [address] [place] [phone] Roslyn Akins PA-C [address] [place] [address] Health Maintenance Due Date Last Done Comments Dental Examination 1960 Imm-Zoster, Recombinant (1 of 2) 2008 Bone Density Screening 08/21/2023 Falls Prevention 08/21/2023 Diabetes HbA1c 02/10/2024 11/10/2023, 04/16, 11/04/2022, Additional history exists Alcohol and Drug Screen 03/16/2024 04/28/19 24, 04/11/2022, 09/24/2021, Additional history exists Depression Annual Screen 03/16/2024 024, 12/19/2014, 10/21/2013 (Declined) Retinopathy Screening 07/21/2024 07/22/2023 , 10/03/2022, 09/30/2021, Additional history exists Diabetes Foot Exam 11/09/2024 11/10/2023, 0 04/13/2022, 12/26/2021, Additional history exists Diabetes Microalbumin (w/Creatinine) 11/09/2024 11/10/2023, 04/29/2023, 08/06/2022, Additional history exists Lipid Screening 11/09/2024 11/10/2023, 04/16, 11/04/2022, Additional history exists Serum Creatinine 11/09/2024 11/10/2023, , 11/04/2022, Additional history exists Medicare Annual Wellness Visit 12/14/2024 1 , 07/29/2023, 04/11/2022, Additional history exists Tobacco Screening 01/31/2025 02/01/2024 Breast Cancer Screening (Mammogram) 11/24/2025 11/25/2023, 03/15/2013 (Declined) Imm-Influenza Discontinued 02/17/2014 (Decl ined), 03/15/2013 (Declined) HIV Screening Completed 10/26/2017, 02/17/2014 Hepatitis C Screening Completed 10/26/2017, 014 Imm-Pneumococcal 65+ Completed 11/04/2022, 03/15/20 13 [id number] Discontinued Imm-DTaP/Tdap/Td Discontinued Procedures Procedure Name Priority Date/Time Associated Diagnosis Comments REFERRAL SCANNED DOCUMENT 04/07/2024 3:00 AM EST REFERRAL SCANNED DOCUMENT 03/23/2024 3:00 AM EST IMAGING SCANNED DOCUMENT 03/03/2024 3:00 AM EST REFERRAL SCANNED DOCUMENT 01/27/2024 3:00 AM EST REFERRAL SCANNED DOCUMENT 01/19/2024 3:00 AM EST SCREENING MAMMOGRAM BILATERAL Routine 11/25/2023 3:00 AM EDT Encounter for screening mammogram for malignant neoplasm of breast COMPREHENSIVE METABOLIC PANEL Routine 11/10/2023 3:47 PM EDT Left cervical radiculopathy Essential hypertension, benign Hyperlipidemia, mixed Lumbar degenerative disc disease Type 2 diabetes mellitus without complication, without long-term current use of insulin ([facility]) Stage 2 chronic kidney disease Microalbuminuria Hyperuricemia LIPID PANEL Routine 11/10/2023 3:47 PM EDT Left cervical radiculopathy Essential hypertension, benign Hyperlipidemia, mixed Lumbar degenerative disc disease Type 2 diabetes mellitus without complication, without long-term current use of insulin ([facility]) Stage 2 chronic kidney disease Microalbuminuria Hyperuricemia MICROALBUMIN/CREATINI NE RATIO, URINE, RANDOM Routine 11/10/2023 3:47 PM EDT Left cervical radiculopathy Essential hypertension, benign Hyperlipidemia, mixed Lumbar degenerative disc disease Type 2 diabetes mellitus without complication, without long-term current use of insulin ([facility]) Stage 2 chronic kidney disease Microalbuminuria Hyperuricemia HEMOGLOBIN GLYCOSYLATED A1C Routine 11/10/2023 3:47 PM EDT Left cervical radiculopathy Essential hypertension, benign Hyperlipidemia, mixed Lumbar degenerative disc disease Type 2 diabetes mellitus without complication, without long-term current use of insulin ([facility]) Stage 2 chronic kidney disease Microalbuminuria Hyperuricemia EYE EXAM 07/22/2023 3:00 AM EDT ANTIBODY HIV-1&HIV-2 SINGLE RESULT Routine 10/26/2017 12:09 PM EDT Uncontrolled type 2 diabetes mellitus without complication, without long-term current use of insulin ([facility]) HEPATITIS C ANTIBODY Routine 10/26/2017 12:09 PM EDT Uncontrolled type 2 diabetes mellitus without complication, without long-term current use of insulin ([facility]) from Last 3 Months or Most Recently Relevant to Health Maintenance Results * REFERRAL SCANNED DOCUMENT (04/07/2024 3:00 AM EST) Only the most recent of4 resultswithin the time period is included. 04/07/2024 3:00 AM EST Roslyn Lukin PA-C SCAN REFERRAL Final Result * IMAGING SCANNED DOCUMENT (03/03/2024 3:00 AM EST) 03/03/2024 3:00 AM EST us Roslyn Lukin PA-C SCAN IMAGING Final Result * SCREENING MAMMOGRAM BILATERAL (11/25/2023 3:00 AM EDT) 11/25/2023 3:00 AM EDT Roslyn Lukin PA-C IMG MAMMO Final Result * MICROALBUMIN/CREATININE RATIO, URINE, RANDOM (11/10/2023 3:47 PM EDT) CREATININE, RANDOM URINE 100 20 - 275 mg/dL [facility] MICROALBUMIN 0.6 mg/dL [facility] Comment: Reference Range Not established MICROALBUMIN/CREA TININE RATIO, RANDOM URINE 6 <30 mg/g creat [facility] Comment: The ADA defines abnormalities in albumin excretion as follows: Albuminuria Category ?Result (mg/g creatinine) Normal to Mildly increased ?? <30 Moderately increased ? 30-299 Severely increased ? > OR = 300 The ADA recommends that at least two of three specimens collected within a 3-6 month period be abnormal before considering a patient to be within a diagnostic category. Urine Urine specimen / Unknown 11/10/2023 3:47 PM EDT 11/10/2023 3:48 PM EDT Narrative [facility] - 11/12/2023 8:07 PM EDT FASTING:UNKNOWN PATIENT NOT FASTING; ADVISED TO RETURN FOR COLLECTION. Roslyn Akins PA-C LAB - NO BLOOD DRAW Final Re sult Performing Organization Address [facility] Co de Phone Number [facility] [address] [address], [employer] [address] [address] * (ABNORMAL) HEMOGLOBIN GLYCOSYLATED A1C (11/10/2023 3:47 PM EDT) HEMOGLOBIN A1C 9.3(H) <5.7 % of total Hgb [employer] Comment: For someone without known diabetes, a hemoglobin A1c value of 6.5% or greater indicates that they may have diabetes and this should be confirmed with a follow-up test. For someone with known diabetes, a value <7% indicates that their diabetes is well controlled and a value greater than or equal to 7% indicates suboptimal control. A1c targets should be individualized based on duration of diabetes, age, comorbid conditions, and other considerations. Currently, no consensus exists regarding use of hemoglobin A1c for diagnosis of diabetes for children. ?? Blood Blood / Unknown 11/10/2023 3 :47 PM EDT 11/10/2023 3:48 PM EDT [facility] - 11/12/2023 8:07 PM EDT FASTING:UNKNOWN PATIENT NOT FASTING; ADVISED TO RETURN FOR COLLECTION. Roslyn Akins PA-C LAB - BLOOD DRAW Edited Resu lt - Final Performing Organization Address [facility]/ZIP Co de Phone Number [employer] [address] [address], [employer] [address] [address] * (ABNORMAL) LIPID PANEL (11/10/2023 3:47 PM EDT) CHOLESTEROL, TOTAL 170 <200 mg/dL [employer] HDL CHOLESTEROL 37(L) > OR = 50 mg/dL [employer] TRIGLYCERIDES 404(H) <150 mg/dL [employer] Comment: If a non-fasting specimen was collected, consider repeat triglyceride testing on a fasting specimen if clinically indicated. Rosanne et al. J. of Clin. Lipidol. 2015;9:129-169. LDL-CHOLESTEROL See Note [employer] Comment: LDL cholesterol not calculated. Triglyceride levels greater than 400 mg/dL invalidate calculated LDL results. Reference range: <100 Desirable range <100 mg/dL for primary prevention; ?? <70 mg/dL for patients with CHD or diabetic patients with > or = 2 CHD risk factors. LDL-C is now calculated using the Sondra calculation, which is a validated novel method providing better accuracy than the Friedewald equation in the estimation of LDL-C. Guanakito BOCANEGRA et al. NOE. 2013;310(19): 6907-6189 (http://education.VersionOne/faq/XOR212) CHOL/HDLC RATIO 4.6 <5.0 (calc) [facility] NON-HDL CHOLESTEROL 133(H) <130 mg/dL (calc) [employer] Comment: For patients with diabetes plus 1 major ASCVD risk factor, treating to a non-HDL-C goal of <100 mg/dL (LDL-C of <70 mg/dL) is considered a therapeutic option. Blood Blood / Unknown 11/10/2023 3 :47 PM EDT 11/10/2023 3:48 PM EDT Narrative [facility] - 11/12/2023 8:07 PM EDT FASTING:UNKNOWN PATIENT NOT FASTING; ADVISED TO RETURN FOR COLLECTION. Roslyn Akins PA-C LAB - BLOOD DRAW Final Resul t [facility] [address] [place] [id number], [employer] [facility] [address] [place] [phone] * (ABNORMAL) COMPREHENSIVE METABOLIC PANEL (11/10/2023 3:47 PM EDT) GLUCOSE 213(H) 65 - 99 mg/dL [employer] [facility] Comment: ?Fasting reference interval For someone without known diabetes, a glucose value >125 mg/dL indicates that they may have diabetes and this should be confirmed with a follow-up test. UREA NITROGEN (BUN) 29(H) 7 - 25 mg/dL [facility] CREATININE (blood) 1.94(H) 0.50 - 1.05 mg/dL [facility] EGFR 28(L) > OR = 60 mL/min/1. 73m2 [facility] BUN/CREATININE RATIO 15 6 - 22 (calc) [facility] SODIUM 138 135 - 146 mmol/L [facility] POTASSIUM 4.3 3.5 - 5.3 mmol/L [facility] CHLORIDE 104 98 - 110 mmol/L [facility] CARBON DIOXIDE 26 20 - 32 mmol/L [facility] CALCIUM 9.7 8.6 - 10.4 mg/dL [facility] PROTEIN, TOTAL 6.6 6.1 - 8.1 g/dL [facility] ALBUMIN 4.3 3.6 - 5.1 g/dL [facility] GLOBULIN 2.3 1.9 - 3.7 g/dL (calc) [facility] ALBUMIN/GLOBULI N RATIO 1.9 1.0 - 2.5 (calc) [facility] BILIRUBIN, TOTAL 1.2 0.2 - 1.2 mg/dL [facility] ALKALINE PHOSPHATASE 120 37 - 153 U/L [facility] AST 11 10 - 35 U/L [facility] ALT 17 6 - 29 U/L [facility] Blood Blood / Unknown 11/10/2023 3 :47 PM EDT 11/10/2023 3:48 PM EDT Narrative [facility] - 11/12/2023 8:07 PM EDT FASTING:UNKNOWN PATIENT NOT FASTING; ADVISED TO RETURN FOR COLLECTION. us Roslyn Akins PA-C LAB - BLOOD DRAW Edited Resu lt - Final [facility] [address] [address], [facility] [address] [phone] * EYE EXAM (07/22/2023 3:00 AM EDT) 07/22/2023 3:00 AM EDT Roslyn Edda [employer] OTHER Edited Result - Final * HEPATITIS C ANTIBODY (10/26/2017 12:09 PM EDT) [facility] HEPATITIS C VIRUS SCREEN NEGATIVE NEGATIVE [facility] Blood specimen (specimen) Blood / Unknown 10/26/2017 12:09 PM EDT 10/26/2017 12:23 PM EDT [facility] - 10/26/2017 4:38 PM EDT [email or web address] [address] [place] [id number] [place] [id number] ORD# [id number] Roslyn SANTANAC LAB - BLOOD DRAW Final Resul t Performing Organization Address [facility] de Phone Number [address] [address], * HIV-1 & HIV-2 ANTIBODIES (10/26/2017 12:09 PM EDT) [facility] HIV 1 AND 2 ANTIBODY SCREEN NEGATIVE NEGATIVE [facility] Comment: This assay is a 4th generation assay allowing for earlier detection of HIV infection by detecting the presence of the HIV-1 p24 antigen as well as the traditional antibodies to HIV type 1 (including group O) and type 2. ??Use of a 4th generation assay is the current CDC recommendation for HIV screening. Blood specimen (specimen) Blood / Unknown 10/26/2017 12:09 PM EDT 10/26/2017 12:23 PM EDT [facility] - 10/26/2017 4:38 PM EDT [email or web address] [address] [place] [id number] [place] [id number] ORD# [id number] Roslyn SANTANAC LAB - BLOOD DRAW Final Resul t Performing Organization Address [facility] de Phone Number [address] [address], from Last 3 Months or Most Recently Relevant to Health Maintenance Insurance [employer] - [place] ID MEDICAID Care Teams Concrete Curer Relationship Specialty Start Date End Date Roslyn Akins PA-C [address] [place] [phone] PCP - General Internal Medicine 04/26/18
[2024-04-12 11:21] LABS: Total Volume 24 Hour Urine 3020 mL
[2024-04-12 11:22] LABS: Total Volume 24 Hour Urine 3020 mL
[2024-04-12 11:30] LABS: Appearance Urine Clear; Color Urine Yellow; Glucose Urine UA >=1000 mg/dL (Negative); Leukocyte Esterase Urine Negative (Negative); Nitrite Urine Negative (Negative); PH 5.5 (5.0-9.0); Specific Gravity - Urine 1.025 (1.005-1.025); UMIC TRIGGER UA YES; Urine Blood Negative (Negative); Urine Ketones Negative (Negative); Urine Protein Negative (Neg-Trace)
[2024-04-12 11:33] LABS: Bacteria Urine None Seen (None Seen); Hyaline Casts Urine 0-2 /LPF (0-2); RBC Urine 0-2 /HPF (0-2); Squamous Epithelial Cell Urine 0-2 /HPF (0-2); WBC Urine 0-5 /HPF (0-5)
[2024-04-12 12:00] LABS: Creatinine, 24Hr Urine 1.8 G/Day (1.0-2.0); Creatinine, mg/dL 61.09
[2024-04-12 12:05] LABS: Alanine Aminotransferase 34 U/L (0-31); Albumin Level 4.4 g/dL (3.5-5.0); Alkaline Phosphatase 146 U/L (39-117); Anion Gap 9 (12-20); Aspartate Amino Transferase 21 U/L (5-31); Bilirubin Total 1.5 mg/dL (0.0-1.0); Blood Urea Nitrogen 30 mg/dL (9-16); Calcium 9.5 mg/dL (8.4-10.2); Carbon Dioxide 26 mmol/L (22-29); Chloride 108 mmol/L (96-108); Estimated Glomerular Filt Rate 37; Glucose Random 250 mg/dL (60-115); Potassium 4.7 mmol/L (3.3-5.1); Sodium 138 mmol/L (135-145); Total Protein 7.5 g/dL (6.5-8.0)
[2024-04-12 12:05] LABS: Creatinine, 24Hr Urine 1.8 G/Day (1.0-2.0); Creatinine, mg/dL 59.86; Protein 24 Hr Urine < 211 mg/Day (<150); Protein mg/dL < 7 mg/dL
[2024-04-12 14:07] LABS: Creatinine (CrCl) 1.42 mg/dL (0.5-1.4); Creatinine Clearance 88.4 mL/min (85-125)
== END 2024-04-12 09:53 | disposition home or self-care (01) ==
LOC: HO.LAB 09:52
PROVIDERS: PCP Physician Assistant; Visit Provider Internal Medicine Hypertension Specialist
DX: N26.1 Atrophy of kidney (terminal) (principal)
CPT/HCPCS: 36415; 80053; 81001; 82570; 82575; 83970; 84156; 84550

== ENCOUNTER 2024-04-19 10:57 | Outpatient (AMB) | payer MEDICARE, MEDICAID, SELFPAY ==
[2024-04-19 11:00] VITALS: BP 100/60; PULSE 70; O2SAT 97; BMI 38.4
--- NOTE | 2024-04-19 11:00 | HO.NEPHOV_ITS ---
Vital Signs 04/19/24 11:00 Height 5 ft 2 in Weight 210 lb BMI 38.4 BP 100/60 Blood Pressure Location Rt brachial Position Sitting Pulse 70 Pulse Source Pulse Oximeter Pulse Oximetry (%) 97 Oxygen Delivery Method Room Air Intake Visit Reasons: Atrophy of kidney Mapping Analyst Required: Yes Mapping Analyst Name: Bernadette [id number] Accompanied by: Self / Same As Patient Allergies No Known Allergies Allergy (Verified 04/19/24 11:02) Medication List - Last Reconciled 04/19/24 by Abdifatah Estrada MD allopurinol 300 mg PO DAILY aspirin 81 mg PO DAILY atorvastatin 80 mg PO BEDTIME bisoprolol fumarate 2.5 mg PO DAILY calcium carbonate-vitamin D3 500 mg-5 mcg (200 unit) (Oysco 500/D) 1 tab PO DAILY colchicine 0.6 mg PO DAILY dapagliflozin propanediol (Farxiga) 10 mg PO DAILY ezetimibe 10 mg PO DAILY glimepiride 4 mg PO QAM insulin glargine-yfgn units subcut isosorbide mononitrate ER 30 mg PO DAILY lisinopril 20 mg PO DAILY semaglutide (Ozempic) mg subcut QWEEK vitamin E mixed units PO HPI Comments Details: Bettina is a pleasant 63-year-old woman referred for a while patient of CKD. She has had diabetes mellitus for more than 15 years. In 03/04/2024 she had a serum creatinine of 1.6 and EGFR of 30 mL/minute. She was found to have mild hydronephrosis on right kidney and mild fullness of the left pelvis without hydronephrosis. Right kidney measured 10.3 cm left kidney measured 11.1 cm. This was followed by a renal scan which revealed a normal left kidney and significantly less functional contribution from the right kidney. She was seen by Urology and referred for further evaluation. Mapping Analyst service was used. She has been on Ozempic for quite some time. She was lost about 30 lb. Blood pressure has been rather low and she has had episodes of lightheadedness. No history of syncope. No shortness of breath no chest pain no urinary symptoms no fever no rash no edema. No rash no joint pains. 04/19/24 Feels dizzy [facility] Medical History Epigastric pain Hyperuricemia Stage 2 chronic kidney disease Type 2 diabetes mellitus Lumbar degenerative disc disease Hyperlipidemia Hypertension Left cervical radiculopathy Physical Exam Vital Signs: Last Vital Signs Pulse 70 04/19/24 11:00 BP 100/60 04/19/24 11:00 Pulse Ox 97 04/19/24 11:00 Oxygen Delivery Method Room Air 04/19/24 11:00 BMI result Body Mass Index 38.4 Comfortable Neck supple no JVD. Lungs entry equal no rales. Heart S1-S2 heard no gallop or rub. Abdomen soft nontender. Neuro alert awake oriented. No asterixis. Extremities no edema. Results Reviewed Nephrology Results: Sodium 138 mmol/L (135-145) 04/12/24 Potassium 4.7 mmol/L (3.3-5.1) 04/12/24 Chloride 108 mmol/L (96-108) 04/12/24 Carbon Dioxide 26 mmol/L (22-29) 04/12/24 BUN 30 mg/dL (9-16) H 04/12/24 Creatinine 1.42 mg/dL (0.5-1.4) H 04/12/24 Calcium 9.5 mg/dL (8.4-10.2) 04/12/24 PTH Intact 131.0 pg/mL (8.7-77.1) H 04/12/24 Urine Protein Negative mg/dL (Neg-Trace) 04/12/24 Assessment & Plan Assessment & Plan (1) CKD (chronic kidney disease) stage 3, GFR 30-59 ml/min: Code(s): N18.30 - Chronic kidney disease, stage 3 unspecified Category: Medical Plan 62-year-old woman with longstanding diabetes mellitus and obesity has CKD 3B. She probably has underlying diabetic kidney disease. Renal ultrasonogram revealed mild hydronephrosis but I doubt if obstructive uropathy is the main contributing factor. Blood pressure has been well controlled. Again, office reading was low today. There could be a component of hypoperfus ion. urine protein excretion < 211 mg in 24 hr urine collection ! 24 urine collection creatinine clearance 88 ml/mt with Sr Cr of 1.4. Optimize blood pressure. BP islow Decrease Lisinopril fomr 20 mg down to 10 mg Recheck BP and renal panel in 3 weeks If BP remains low, will stop Lisinopril Continue to avoid hypotension and avoid nephrotoxic agents. Goal is to slow the progression of renal disease. I have discussed importance of tight control of blood sugar to slow the progression. She is currently on SGLT2 inhibitor and I would continue the same. All questions were answered. Orders: Orders Basic Metabolic Panel 4 Weeks N18.30 - Chronic kidney disease, stage 3 unspecified Basic Metabolic Panel 3 Weeks N18.30 - Chronic kidney disease, stage 3 unspecified Medications: Changed From lisinopril 20 mg PO DAILY To lisinopril 10 mg PO DAILY Coding Level of Care Code Est Pt Level 4 (91029) Diagnoses CKD (chronic kidney disease) stage 3, GFR 30-59 ml/min N18.30
--- OUTSIDE RECORDS SUMMARY | 2024-04-19 11:53 | XMS_ITS | Encounter Summary ---
Author Organization [facility] Address [address] [place] [address] Care Team Providers Care Live In Caregiver Name Role Phone Roslyn Akins PA-C Primary Care Provider + [phone] Reason for Referral * Medication Prior Authorization - Pending Review Specialty Diagnoses / Procedures Referred By Leonie t Referred To Contact Diagnoses Type 2 diabetes mellitus without complication, without long-term current use of insulin ([facility]) Roslyn Akins PA-C [address] [place] [phone] Phone: tel: fax: Referral ID Status Reason Start Date Expiration Date V isits Requested Visits Authorized [id number] Pending Review 04/18/2024 04/18/2025 1 1 Reason for Visit * Reason Comments Telehealth (Audio) Encounter Details Date Type Department Care Team (Latest Contact Info) Description 04/18/2024 11:00 AM EST Telemedicine Visit [address] [phone] Roslyn Akins PA-C [address] [place] [phone] Essential hypertension, benign (Primary Dx); Type 2 diabetes mellitus without complication, without long-term current use of insulin ([facility]); Non morbid obesity; Hyperlipidemia, mixed Social History Tobacco Use Types Packs/Day Years Used Date Smoking Tobacco: Never Smokeless Tobacco: Never Alcohol Use Standard Drinks/Week Comments No 0 (1 standard drink = 0.6 oz pur e alcohol) Social Connections Answer Date Recorded Connectedness 1 04/18/2024 Financial Resource Strain Answer Date R ecorded Financial Resource Strain 1 2024 Stress Answer Date Recorded Stress 1 04/18/2024 Physical Activity Answer Date Recorded Physical Activity 0 11/02/2018 Food Insecurity Answer Date Recorded Food 1 04/18/2024 Transportation Needs Answer Date Record ed Transportation 1 04/18/2024 Housing Stability Answer Date Recorded Housing 1 04/18/2024 Safety and Environment Answer Date Wilner rded Safety 1 04/28/2023 Utilities Answer Date Recorded Utilities 1 04/18/2024 Employment Answer Date Recorded Stress 0 04/28/2023 Comments No Sex and Gender Information Value Date Recorded Sex Assigned at Female 01/19/2017 5:46 PM PST Legal Sex Female 11:36 AM PDT Gender Identity Female 01/19/2017 5:46 PM PST Sexual Orientation Straight 01/19/2017 5: 46 PM PST documented as of this encounter Progress Notes * Roslyn Akins PA-C - 04/18/2024 6:41 PM EST Subjective TELEHEALTH visit HPI Bettina Loo is a 63 year old female who presents for routine follow up on chronic conditions Thinks she is allergic to Lantus, has generalized pruritus, started when she first started the lantus had cancer surgery in [place] a few days ago Objective There were no vitals filed for this visit. Estimated body mass index is 37.68 kg/m?? as calculated from the following: Height as of 11/10/23: 5' 2 (1.575 m). Weight as of 12/15/23: 206 lb (93.4 kg). No height and weight on file for this encounter. Assessment and Plan I10 Essential hypertension, benign (primary encounter diagnosis) -- blood pressure is controlled, cont all medications as prescribed, refilled all meds that are duefor a refill, reviewed med list in detail I recommended plant-based diet and weight loss for overall health. I also recommended continued primary prevention and lifestyle modification. I encouraged the patient to pursue moderate activity for at least 300 minutes/week per the ACC guidelines. E11.9 Type 2 diabetes mellitus without complication, without long-term current use of insulin ([facility]) Plan : OZEMPIC 2 MG/DOSE (8 MG/3 ML) SUBCUTANEOUS PEN INJECTOR - Inject 2 mg into the skin once a week E66.9 Non morbid obesity Lifestyle measures:BMI follow up plan: The patient was counseled regarding nutrition and physical activity. E78.2 Hyperlipidemia, mixed Lab Results Component Value Date TRIGLYC 404 (H) 11/10/2023 CHOL 170 11/10/2023 HDL 37 (L) 11/10/2023 LDL See Note 11/10/2023 CHOLHDL 4.6 11/10/2023 NONHDL 133 (H) 11/10/2023 TELEHEALTH visit I identified myself as Roslyn Akins PA-C from [facility]. The patient was identified using their name, , and insurance ID number. The following visit was conducted via TELEPHONE. I educated the patient on the terms of telehealth.The patient was located in a home setting in the [facility] during this telephone visit and gave consent to conduct the visit via telehealth. Provider was located in a home settingin the [facility]. This visit was conducted in a private space to protect HIPPA sensitive information. Precautions were taken to provide confidentiality, security and patient was made aware of privacy considerations. Time of direct telehealth encounter/medical discussion: 15 minutes. PHYSICAL EXAM is deferred due to visit being conducted over the telephone. Any patient reported physical exam findings are listed in the subjective portion of this note. ALL questions were answered to the patient's satisfaction. The patient was notified that they can see a clinician in person in the event of an emergency or if otherwise needed. Also encouraged to call back if any new health concerns arise. Persons other than patient involved in televisit included: none No emissions technician was used for this visit as I speak the patient's picayune language. documented in this encounter Plan of Treatment Upcoming Encounters Date Type Department Care Team (Late st Contact Info) Description 05/30/2024 9:40 AM EDT Telemedicine Visit [facility] [address] [place] [phone] Roslyn Akins PA-C [address] [phone] documented as of this encounter Visit Diagnoses Diagnosis Essential hypertension, benign- Primary Type 2 diabetes mellitus without complication, without long-term current use of insulin ([facility]) Non morbid obesity Hyperlipidemia, mixed Mixed hyperlipidemia documented in this encounter Additional Health Concerns Assessment Noted Time PHQ-9 Depression Total Score: 0 04/18/19 25 10:50 AM PST documented as of this encounter Care Teams Live In Caregiver Relationship Specialty Start Date End Date Roslyn Akins PA-C [facility] [place] [phone] PCP - General Internal Medicine 04/26/18 documented as of this encounter
--- OUTSIDE RECORDS SUMMARY | 2024-04-19 11:53 | XMS_ITS | Clinical Summary ---
Author Organization [facility] Address [address] [place] [address] Care Team Providers Care Bagger Meat Name Role Phone Roslyn Akins PA-C Primary Care Provider [phone] Source Comments PLEASE NOTE, if this patient is a minor, it may be UNLAWFUL to discuss sensitive information that is contained in these records (such as FAMILY PLANNING, MENTAL HEALTH or SUBSTANCE ABUSE) with the minor patient's parent or other person without the patient's specific authorization.[facility] Allergies No known active allergies Medications colchicine 0.6 mg tabletIndication s:Hyperuricemia TAKE 2 TABLETS BY MOUTH ON DAY 1 THEN 1 TABLET TWICE DAILY UNTIL GOUT FLARE RESOLVES 60 Tablet 11 024 Active traZODone (DESYREL) 50 mg tabletIndication s:Primary insomnia 1-2 tabs po qhs prn insomnia 180 Tablet 1 024 Active alcohol swabsIndications :Type 2 diabetes mellitus without complication, without long-term current use of insulin ([facility]) Use qd, dx E11.9 50 Each 024 Active lancets (FREESTYLE LANCETS) 28 gaugeIndications :Type 2 diabetes mellitus without complication, without long-term current use of insulin ([facility]) Freestyle lite lancets, use QD, dx E11.9 50 Each 024 Active blood sugar diagnostic stripsIndication s:Type 2 diabetes mellitus without complication, without long-term current use of insulin ([facility]) 1 Each daily. Freestyle lite strips use QD, dx E11.9 50 Each 024 Active blood-glucose meter monitoring kitIndications:T ype 2 diabetes mellitus without complication, without long-term current use of insulin ([facility]) 1 Each daily. Freestyle lite meter, disp 1, lifetime need, dx E11.9 1 Each Active dapagliflozin propanediol 10 mg tabIndications:T ype 2 diabetes mellitus without complication, without long-term current use of insulin ([facility]) TAKE 1 TABLET BY MOUTH DAILY 90 Tablet 2 024 Active diclofenac sodium (VOLTAREN) 1 % gel Apply a small amount to finger joint QID 100 g 11 024 Active lidocaine (LIDODERM) 5 % patchIndications :Chronic left shoulder pain Apply 1 patch to the affected area for a maximum of 12 hours, followed by removal for 12 hours. 30 Patch 4 024 Active betamethasone valerate (VALISONE) 0.1 % creamIndications :Atopic dermatitis, unspecified type Apply topically 2 (two) times daily 60 g 3 024 Active OYSCO 500/D 500 mg-5 mcg (200 unit) per tabletIndication s:Non morbid obesity TAKE 1 TABLET BY MOUTH EVERY DAY 90 Tablet 2 024 Active bisoprolol (ZEBETA) 5 mg tablet TAKE 1 TABLET BY MOUTH EVERY DAY 90 Tablet 2 [address] Active aspirin [address] tabletIndication s:Type 2 diabetes mellitus without complication, without long-term current use of insulin ([facility]) TAKE 1 TABLET BY MOUTH ONCE DAILY 90 Tablet 1 024 Active isosorbide mononitrate ER (IMDUR) 30 mg 24 hr tabletIndication s:Essential hypertension, benign TAKE 1 TABLET BY MOUTH EVERY MORNING 90 Tablet 2 Active insulin glargine 100 unit/mL (3 mL) penIndications:T ype 2 diabetes mellitus without complication, without long-term current use of insulin ([facility]) Inject 15 Units into the skin once daily 15 mL 5 Active lisinopriL 20 mg tabletIndication s:Essential hypertension, [...] s:Uncontrolled type 2 diabetes mellitus with hyperglycemia ([facility]) TAKE 1 TABLET BY MOUTH EVERY DAY WITH BREAKFAST 90 Tablet 2 024 Active allopurinoL (ZYLOPRIM) 300 mg tabletIndication s:Acute idiopathic gout of left foot TAKE 1 TABLET BY MOUTH EVERY DAY WITH LUNCH 90 Tablet 2 024 Active BD JINA 2ND GEN PEN NEEDLE 32 gauge x ndleIndications: Uncontrolled type 2 diabetes mellitus with hyperglycemia ([facility]) USE DIRECTED EVERY DAY 100 Each 025 Active semaglutide (OZEMPIC) 2 mg/dose (8 mg/3 mL) pen injectorIndicati ons:Type 2 diabetes mellitus without complication, without long-term current use of insulin ([facility]) Inject 2 mg into the skin once a week 6 mL 3 025 Active ascorbic acid, vitamin C, (VITAMIN C) 500 mg tabletIndication s:Acute idiopathic gout of left foot Take 1 Tab by mouth once daily 90 Tab 2 020 2024 Discontinued(T herapy completed/Not needed) esomeprazole magnesium (NEXIUM) [address] capsule TAKE 1 CAPSULE BY MOUTH EVERY DAY NEEDED FOR HEARTBURN 90 Capsule 2 022 2024 Discontinued(T herapy completed/Not needed) isosorbide mononitrate (IMDUR) 30 mg 24 hr tabletIndication s:Essential hypertension, benign TAKE 1 TABLET BY MOUTH EVERY MORNING 90 Tablet 2 022 2024 Discontinued(T herapy completed/Not needed) atorvastatin (LIPITOR) 20 mg tabletIndication s:Hyperlipidemia , mixed TAKE 1 TABLET BY MOUTH EVERY NIGHT AT BEDTIME 90 Tablet 3 022 2024 Discontinued(T herapy completed/Not needed) MISCELLANEOUS MEDICAL SUPPLY MISCIndications: Routine general medical examination at a health care facility by miscellaneous route once daily 20-30 mmHG knee high compression stockings, disp 2 pairs, dx venous insufficiency 2 Each 023 2024 Discontinued(T herapy completed/Not needed) linaCLOtide 145 mcg capIndications:F unctional constipation Take 1 Capsule by mouth every morning before breakfast 90 Capsule 1 023 2024 Discontinued(T herapy completed/Not needed) BD JINA 2ND GEN PEN NEEDLE 32 gauge x ndleIndications: Uncontrolled type 2 diabetes mellitus with hyperglycemia (HCC-CMS) USE DIRECTED WITH LANTUS EVERY DAY 100 Each 024 2024 Discontinued semaglutide (OZEMPIC) 1 mg/dose (4 mg/3 mL) pen injectorIndicati ons:Type 2 diabetes mellitus without complication, without long-term current use of insulin ([facility]) Inject 1 mg into the skin once a week 9 mL 4 024 2024 Discontinued(T herapy completed/Not needed) Active Problems Problem Noted Date Diagnosed Date [...] May 09, 2021 10:36 EST Encounter info: [id number], [facility] [place], One Time OP, 05/09/2021 - 05/09/2021 Contributor system: RedHelper Echo Complete-Doppler, Colorflow, M-Mode Transthoracic Echocardiography Report (TTE) Patient Demographics Patient Name CINDA, [facility] Race Ethnicity Date of 1960 Height: 62.6 inches Age 60 year(s) Weight: 238.1 pounds Accession Number [id number] BSA: 2.07 m2 Room Number BMI: 42.72 kg/m2 Referring Physician Margie BOB Interpreting Emma Mccurdy MD Physician Stone Carriage Operator Marlin Shvets Indications Chest pain. Clinical History CM HLD [...] mmHg E' Lateral Velocity: 7.9 cm/s E/Med E':17.66140 E/Lat E':12.66931 Cardiac Anatomy Left Ventricle/Interventricular Septum The wall [...] June 29, 2017 10:07 EDT Encounter info: [id number], [facility] [place], One Time OP, 06/29/2017 - 06/29/2017 Contributor system: RedHelper Echo Complete This document has an image Echo Complete-Doppler, Colorflow, M-Mode Transthoracic Echocardiography Report (TTE) Patient Demographics Patient Name CINDA, Date of Study 06/29/2017 [facility] Gender Female Facility Race Ethnicity Date of 1960 Height: 63 inches Age 56 year(s) Weight: 245.01 pounds Accession Number [id number] BSA: 2.11 m2 Room Number BMI: 43.4 kg/m2 Referring Physician Margie Humphrey MD Physician Stone Carriage Operator Portia Sandoval RCS Indications Chest pain. Clinical [...] mmHg E' Lateral Velocity: 8.68 cm/s E/Med E':15.73749 E/Lat E':8.26295 Cardiac Anatomy Left Ventricle/Interventricular Septum The left [...] complication, without long-term current use of insulin ([facility]) 03/15/2013 Overview (05/30/2015): Opthal exam 04/2015 Dr. Narvaez [facility], no retinopathy Non morbid obesity 03/15/2013 Hyperlipidemia, mixed 03/15/2013 Lumbar degenerative disc disease 03/15/2013 Knee osteoarthritis 03/15/2013 Hyperuricemia 03/15/2013 Renal cyst, right 01/2013 ultrasound 03/15/2013 Encounters Date Type Department Care Team Description 04/18/2024 11:00 AM EST Telemedicine Visit [address] [phone] Roslyn Akins PA-C Essential hypertension, benign (Primary Dx); Type 2 diabetes mellitus without complication, without long-term current use of insulin ([facility]); Non morbid obesity; Hyperlipidemia, mixed 02/01/2024 3:00 PM EST Telemedicine Visit [address] [phone] Roslyn Akins PA-C Essential hypertension, benign (Primary Dx); Type 2 diabetes mellitus without complication, without long-term current use of insulin ([facility]); Non morbid obesity; Hyperlipidemia, mixed; Hyperuricemia; Microalbuminuria [...] Description 05/30/2024 9:40 AM EDT Telemedicine Visit [facility] [address] [place] [phone] Roslyn Akins PA-C [address] [place] [phone] Health Maintenance Due Date Last Done Comments Dental Examination 1960 Imm-Zoster, Recombinant (1 of 2) 2008 Bone Density Screening 08/21/2023 Falls Prevention 08/21/2023 Diabetes HbA1c 02/10/2024 11/10/2023, 04/16, 11/04/2022, Additional history exists Retinopathy Screening 07/21/2024 07/22/2023 , 10/03/2022, 09/30/2021, Additional history exists Diabetes Foot Exam 11/09/2024 11/10/2023, 0 04/13/2022, 12/26/2021, Additional history exists Diabetes Microalbumin (w/Creatinine) 11/09/2024 11/10/2023, 04/29/2023, 08/06/2022, Additional history exists Lipid Screening 11/09/2024 11/10/2023, 04/16, 11/04/2022, Additional history exists Serum Creatinine 11/09/2024 11/10/2023, , 11/04/2022, Additional history exists Medicare Annual Wellness Visit 12/14/2024 1 , 07/29/2023, 04/11/2022, Additional history exists Tobacco Screening 04/18/2025 04/18/2024 Breast Cancer Screening (Mammogram) 11/24/2025 11/25/2023, 03/15/2013 (Declined) Imm-Influenza Discontinued 02/17/2014 (Decl ined), 03/15/2013 (Declined) HIV Screening Completed 10/26/2017, 02/17/2014 Hepatitis C Screening Completed 10/26/2017, 014 Imm-Pneumococcal 65+ Completed 11/04/2022, 03/15/20 13 Alcohol and Drug Screen Completed 04/18/19 25, 04/28/2023, 04/11/2022, Additional history exists Depression Annual Screen Completed 025, 12/19/2014, 10/21/2013 (Declined) [id number] Discontinued Imm-DTaP/Tdap/Td Discontinued Procedures Procedure Name Priority Date/Time Associated Diagnosis Comments LAB SCANNED DOCUMENT 04/12/2024 3:00 AM EST REFERRAL SCANNED DOCUMENT 04/07/2024 3:00 AM EST [...] complication, without long-term current use of insulin ([facility]) Stage 2 chronic kidney disease Microalbuminuria Hyperuricemia LIPID PANEL Routine 11/10/2023 3:47 PM EDT Left cervical radiculopathy Essential hypertension, benign Hyperlipidemia, mixed Lumbar degenerative disc disease Type 2 diabetes mellitus without complication, without long-term current use of insulin ([facility]) Stage 2 chronic kidney disease Microalbuminuria Hyperuricemia MICROALBUMIN/CREATINI NE RATIO, URINE, RANDOM Routine 11/10/2023 3:47 PM EDT Left cervical radiculopathy Essential hypertension, benign Hyperlipidemia, mixed Lumbar degenerative disc disease Type 2 diabetes mellitus without complication, without long-term current use of insulin ([facility]) Stage 2 chronic kidney disease Microalbuminuria Hyperuricemia HEMOGLOBIN GLYCOSYLATED A1C Routine 11/10/2023 3:47 PM EDT Left cervical radiculopathy Essential hypertension, benign Hyperlipidemia, mixed Lumbar degenerative disc disease Type 2 diabetes mellitus without complication, without long-term current use of insulin ([facility]) Stage 2 chronic kidney disease Microalbuminuria Hyperuricemia EYE EXAM 07/22/2023 3:00 AM EDT ANTIBODY HIV-1&HIV-2 SINGLE RESULT Routine 10/26/2017 12:09 PM EDT Uncontrolled type 2 diabetes mellitus without complication, without long-term current use of insulin (HCC) HEPATITIS C ANTIBODY Routine 10/26/2017 12:09 PM EDT Uncontrolled type 2 diabetes mellitus without complication, without long-term current use of insulin (HCC) from Last 3 Months or Most Recently Relevant to Health Maintenance Results * LAB SCANNED DOCUMENT (04/12/2024 3:00 AM EST) 04/12/2024 3:00 AM EST us Roslyn Lukin PA-C SCAN LAB Final Result * REFERRAL SCANNED DOCUMENT (04/07/2024 3:00 AM EST) Only the most recent of4 resultswithin the time period is included. 04/07/2024 3:00 AM EST us Roslyn Lukin PA-C SCAN REFERRAL Final Result * IMAGING SCANNED DOCUMENT (03/03/2024 3:00 AM EST) 03/03/2024 3:00 AM EST us Roslyn Lukin PA-C SCAN IMAGING Final Result * SCREENING MAMMOGRAM BILATERAL (11/25/2023 3:00 AM EDT) 11/25/2023 3:00 AM EDT us Roslyn Akins PA-C IMG MAMMO Final Result * MICROALBUMIN/CREATININE RATIO, URINE, RANDOM (11/10/2023 3:47 PM EDT) CREATININE, RANDOM URINE 100 20 - 275 mg/dL [facility] MICROALBUMIN 0.6 mg/dL [employer] Comment: Reference Range Not established MICROALBUMIN/CREA TININE RATIO, RANDOM URINE 6 <30 mg/g creat [facility] Comment: The ADA defines abnormalities in albumin [...] PM EDT 11/10/2023 3:48 PM EDT Narrative [facility] - 11/12/2023 8:07 PM EDT FASTING:UNKNOWN PATIENT NOT FASTING; ADVISED TO RETURN FOR COLLECTION. us Roslyn Akins PA-C LAB - NO BLOOD DRAW Final Re sult [facility] [address] [place] [phone], [facility] [address] [place] [phone] * (ABNORMAL) HEMOGLOBIN GLYCOSYLATED A1C (11/10/2023 3:47 PM EDT) HEMOGLOBIN A1C 9.3(H) <5.7 % of total Hgb [facility] Comment: For someone without known diabetes, a [...] PM EDT 11/10/2023 3:48 PM EDT Narrative [facility] - 11/12/2023 8:07 PM EDT FASTING:UNKNOWN PATIENT NOT FASTING; ADVISED TO RETURN FOR COLLECTION. Roslyn Akins PA-C LAB - BLOOD DRAW Edited Resu lt - Final [facility] [address] [place] [phone], [facility] [address] [place] [phone] * (ABNORMAL) LIPID PANEL (11/10/2023 3:47 PM EDT) [facility] Signature CHOLESTEROL, TOTAL 170 <200 mg/dL [facility] HDL CHOLESTEROL 37(L) > OR = 50 mg/dL [facility] TRIGLYCERIDES 404(H) <150 mg/dL [facility] Comment: If a non-fasting specimen was collected, consider repeat triglyceride testing on a fasting specimen if clinically indicated. Rosanne et al. J. of Clin. Lipidol. 2015;9:129-169. LDL-CHOLESTEROL See Note [employer] Comment: LDL cholesterol not calculated. Triglyceride levels [...] LDL-C. Guanakito BOCANEGRA et al. NOE. 2013;310(19): 5872-3121 (http://education.[employer]/faq/MLO335) CHOL/HDLC RATIO 4.6 <5.0 (calc) [facility] NON-HDL CHOLESTEROL 133(H) <130 mg/dL (calc) [facility] Comment: For patients with diabetes plus 1 major ASCVD risk factor, treating to a non-HDL-C goal of <100 mg/dL (LDL-C of <70 mg/dL) is considered a therapeutic option. Blood Blood / Unknown 11/10/2023 3 :47 PM EDT 11/10/2023 3:48 PM EDT Narrative [facility] - 11/12/2023 8:07 PM EDT FASTING:UNKNOWN PATIENT NOT FASTING; ADVISED TO RETURN FOR COLLECTION. us Roslyn Akins PA-C LAB - BLOOD DRAW Final Resul t [facility] [address] [place] [phone], [facility] [address] [place] [phone] * (ABNORMAL) COMPREHENSIVE METABOLIC PANEL (11/10/2023 3:47 PM EDT) GLUCOSE 213(H) 65 - 99 mg/dL [facility] Comment: ?Fasting reference interval For someone without known diabetes, a glucose value >125 mg/dL indicates that they may have diabetes and this should be confirmed with a follow-up test. UREA NITROGEN (BUN) 29(H) 7 - 25 mg/dL [facility] CREATININE (blood) 1.94(H) 0.50 - 1.05 mg/dL [facility] EGFR 28(L) > OR = 60 mL/min/1. 73m2 [facility] BUN/CREATININE RATIO 15 6 - 22 (calc) [facility] SODIUM 138 135 - 146 mmol/L [facility] POTASSIUM 4.3 3.5 - 5.3 mmol/L [facility] CHLORIDE 104 98 - 110 mmol/L [facility] CARBON DIOXIDE 26 20 - 32 mmol/L [facility] CALCIUM 9.7 8.6 - 10.4 mg/dL [facility] PROTEIN, TOTAL 6.6 6.1 - 8.1 g/dL [facility] ALBUMIN 4.3 3.6 - 5.1 g/dL [facility] GLOBULIN 2.3 1.9 - 3.7 g/dL (calc) [facility] ALBUMIN/GLOBULI N RATIO 1.9 1.0 - 2.5 (calc) [facility] BILIRUBIN, TOTAL 1.2 0.2 - 1.2 mg/dL [facility] ALKALINE PHOSPHATASE 120 37 - 153 U/L [facility] AST 11 10 - 35 U/L [facility] ALT 17 6 - 29 U/L [facility] Blood Blood / Unknown 11/10/2023 3 :47 PM EDT 11/10/2023 3:48 PM EDT Narrative [facility] [facility] - 11/12/2023 8:07 PM EDT FASTING:UNKNOWN PATIENT NOT FASTING; ADVISED TO RETURN FOR COLLECTION. Roslyn Akins PA-C LAB - BLOOD DRAW Edited Resu lt - Final [employer] [address] [address], [facility] [address] [phone] * EYE EXAM (07/22/2023 3:00 AM EDT) 07/22/2023 3:00 AM EDT Roslyn Bañuelos [employer] OTHER Edited Result - Final * HEPATITIS C ANTIBODY (10/26/2017 12:09 PM EDT) HEPATITIS C VIRUS SCREEN NEGATIVE NEGATIVE [facility] Blood specimen (specimen) Blood / Unknown 10/26/2017 12:09 PM EDT 10/26/2017 12:23 PM EDT Narrative [facility] [place] 10/26/2017 4:38 PM EDT [facility] [address] [place] [address] [place] [id number] ORD# [id number] Roslyn Akins PA-C LAB - BLOOD DRAW Final Resul t [address] [address], [place] [phone] * HIV-1 & HIV-2 ANTIBODIES (10/26/2017 12:09 PM EDT) [facility] HIV 1 AND 2 ANTIBODY SCREEN NEGATIVE NEGATIVE [facility] Comment: This assay is a 4th generation [...] 12:09 PM EDT 10/26/2017 12:23 PM EDT [facility] - 10/26/2017 4:38 PM EDT [facility] [address] [place] [address] [place] [id number] ORD# [id number] Roslyn Akins PA-C LAB - BLOOD DRAW Final Resul t Performing Organization Address City/[facility]/ZIP Co de Phone Number [address] [address], [place] [phone] from Last 3 Months or Most Recently Relevant to Health Maintenance Insurance [employer] - [place] Care Teams Bagger [employer] Relationship Specialty Start Date End Date Roslyn Akins PA-C [address] [place] [phone] PCP - General Internal Medicine 04/26/18
== END 2024-04-19 11:17 | disposition home or self-care (01) ==
PROVIDERS: PCP Physician Assistant; Visit Provider Internal Medicine Hypertension Specialist
DX: N18.30 Chronic kidney disease, stage 3 unspecified (principal)
CPT/HCPCS: 99214

== ENCOUNTER → 2024-04-19 10:57 | Outpatient (BNVA) | payer MEDICARE, MEDICAID, SELFPAY | PROVIDERS: PCP Physician Assistant; Visit Provider Internal Medicine Hypertension Specialist | DX: E11.22 Type 2 diabetes mellitus with diabetic chronic kidney disease (principal); N18.30 Chronic kidney disease, stage 3 unspecified | CPT/HCPCS: 99212 ==

== ENCOUNTER 2024-05-11 09:05 | Outpatient (REF) | payer MEDICARE, MEDICAID, SELFPAY ==
--- OUTSIDE RECORDS SUMMARY | 2024-05-11 10:02 | XMS_ITS | Continuity of Care Document ---
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 Name Role Phone Roslyn Bell Primary Care Physician Encounter [facility] NBR [id number] Date(s): 04/28/24 - 04/28/[address] [address] [[email or web address] Discharge Disposition: A-D/C Home Attending Physician: Nataly Robbins MD Admitting Physician: Nataly Robbins MD Referring Physician: Boris Mcintosh MD Encounter Type: Disch Daystay Allergies, Adverse Reactions, Alerts No Known Allergies Medications allopurinol 300 mg oral tablet TAKE 1 TABLET BY MOUTH EVERY DAY WITH LUNCH Start Date: 02/11/22 Status: Ordered Repeat number: 1 aspirin 81 mg oral delayed release tablet 81 mg, 1, tablet, By Mouth, Daily, # 100 tablet, Refills 3, Tot. Refills 3, Maintenance, 03/31/24 5:18:00 PM EST, Route to Pharmacy Electronically, [facility] #[id number], Partial fill upon patient request if the prescription is for a schedule II opioid drug., 159, cm, 03/31/24 16:59:00 EST, Height Start Date: 03/31/24 Stop Date: 05/05/25 Status: Ordered Quantity: 100.0 Unit: tablet Repeat number: 4 atorvastatin 80 mg oral tablet 1 tablet = 80 mg, By Mouth, Daily, This is an increase in dose compared to her current regimen of 40 mg., # 90 tablet, 3 Refills, Maintenance, 06/18/23 10:46:00 AM EDT, Tablet, [facility] #[id number], Partial fill upon patient request if the prescription is for a schedule II opioid drug., 159, cm, 06/18/23 9:58:00 EDT, Height Start Date: 06/18/23 Stop Date: 06/12/24 Status: Ordered Quantity: 90.0 Unit: tablet Repeat number: 4 bisoprolol 10 mg oral tablet 1 tablet = 10 mg, By Mouth, Daily, 0 Refills, Maintenance, 01/12/12 1:02:50 PM EDT Start Date: 01/12/12 Status: Ordered Repeat number: 1 Blood Pressure Monitor See Instructions, # 1 each, Maintenance, MONITOR BLOOD PRESSURE NEEDED, 10/03/13 2:15:39 PM EDT, Compound Start Date: 10/03/13 Status: Ordered Quantity: 1.0 Unit: each Repeat number: 1 calcium (as carbonate) 500 mg oral tablet, chewable 1 tablet = 500 mg, Daily, 0 Refills, Maintenance, 03/31/24 5:04:00 PM EST, Partial fill upon patientrequest if the prescription is for a schedule II opioid drug. Start Date: 03/31/24 Status: Ordered Repeat number: 1 ezetimibe 10 mg oral tablet 1 tablet = 10 mg, By Mouth, Daily, Take in addition to Atorvastatin., # 90 tablet, 3 Refills, Maintenance, 03/31/24 5:17:00 PM EST, Tablet, [facility] #[id number], Partial fill upon patient request if the prescription is for a schedule II opioid drug., 159, cm, 03/31/24 16:59:00 EST, Height Start Date: 03/31/24 Stop Date: 03/26/25 Status: Ordered Quantity: 90.0 Unit: tablet Repeat number: 4 Farxiga 10 mg oral tablet 1 tablet = 10 mg, By Mouth, Daily, # 90 tablet, 0 Refills, Maintenance, 06/18/23 10:00:00 AM EDT, Tablet, Partial fill upon patient request if the prescription is for a schedule II opioid drug. Start Date: 06/18/23 Status: Ordered Quantity: 90.0 Unit: tablet Repeat number: 1 Glimepiride = 4 mg, By Mouth, Daily, 0 Refills, Maintenance, 04/26/12 1:43:54 PM EST Start Date: 04/26/12 Status: Ordered Repeat number: 1 ibuprofen 600 mg oral tablet See Instructions, NEEDED FOR PAIN., Refills 0, Maintenance, 12/31/15 8:03:50 AM EDT, Instructions Replace Required Details Start Date: 12/31/15 Status: Ordered Repeat number: 1 Insulin Glargine Prefilled Pen 100 units/mL subcutaneous solution ADMINISTER 15 UNITS UNDER THE SKIN DAILY Start Date: 03/31/24 Status: Ordered Repeat number: 1 isosorbide mononitrate 30 mg oral tablet, extended release 1 tablet = 30 mg, By Mouth, Daily in AM, 0 Refills, Maintenance, 01/12/12 1:06:47 PM EDT Start Date: 01/12/12 Status: Ordered Repeat number: 1 lisinopril 40 mg oral tablet 1 tablet = 40 mg, By Mouth, Daily at bedtime, 0 Refills, Maintenance, 12/31/15 8:30:07 AM EDT Start Date: 12/31/15 Status: Ordered Repeat number: 1 Magnesium Oxide = 400 mg, By Mouth, 0 Refills, Maintenance, 01/12/12 1:06:30 PM EDT Start Date: 01/12/12 Status: Ordered Repeat number: 1 Ozempic Subcutaneous Infusion, 0 Refills, Maintenance, 11/07/21 10:54:00 AM EDT, Partial fill upon patient request if the prescription is for a schedule II opioid drug. Start Date: 11/07/21 Status: Ordered Repeat number: 1 Vitamin D3 2000 intl units oral capsule 1 capsule = 2,000 International_Units, By Mouth, Daily, 0 Refills, Maintenance, 01/12/12 1:07:10 PMEDT Start Date: 01/12/12 Status: Ordered Repeat number: 1 vitamin E 400 iu oral capsule 1 capsule = 400 International_Units, By Mouth, Daily, # 100 capsule, 0 Refills, Maintenance, 169:10:32 AM EST, Capsule Start Date: 04/23/15 Status: Ordered Quantity: 100.0 Unit: capsule Repeat number: 1 Problem List Condition Confirmation Course Effective Dates Status H ealth Status Informant Chest pain Confirmed Active DM - Diabetes mellitus Confirmed Active Hyperlipidemia Confirmed Active Hypertension Confirmed Active Insomnia Confirmed Active Obstructive sleep apnea of adult Confirmed Active Severe obesity (BMI 35.0-39.9) with comorbidity Confirmed Active Sweating symptom Confirmed Active Vital Signs Most recent to oldest [Reference Range]: 1 2 3 Height 162.54 cm (04/28/24 7:30 AM) Weight 94.8 kg (04/28/24 7:30 AM) Oxygen Saturation [94-100 %] 96 % (04/28/24 2:15 PM) 95 % (04/28/24 2:00 PM) 94 % (04/28/24 1:45 PM) Pulse Rate [55-90 bpm] 60 bpm (04/28/24 7:30 AM) Body Mass Index [18.5-24.99 kg/m2] 35.88 kg/m2 *>HHI* (04/28/24 7:30 AM) Blood Pressure [90-138/55-84 mm Hg] 112/76mm Hg (04/28/24 2:15 PM) 124/64mm Hg (04/28/24 2:00 PM) 117/82mm Hg (04/28/24 1:45 PM) Respiratory Rate [16-30 br/min] 11 br/min *L* (04/28/24 2:15 PM) 13 br/min *L* (04/28/24 2:00 PM) 13 br/min *L* (04/28/24 1:45 PM) Temperature [96.8-100.4 DegF] 97.6 DegF (04/28/24 7:30 AM) 97.6 DegF (04/28/24 7:30 AM) Mode of Delivery (Oxygen) Room air (04/28/24 11:15 AM) Room air (04/28/24 7:30 AM) Room air (04/28/24 7:30 AM) Blood pressure sites Arm, right (04/28/24 7:30 AM) Arm, right (04/28/24 7:30 AM) Temperature Route Temporal (04/28/24 7:30 AM) Temporal (04/28/24 7:30 AM) Dry Weight 94.8 kg (04/28/24 7:30 AM) Weight Obtained Via Standing scale (04/28/24 7:30 AM) Social History Social History Type Response Smoking Status Never smoker; Tobacc o user in household: No entered on: 09/19/13 Sex Sex Representation Female (finding) Note * Event Display: Hemodynamic Procedure Report Authored Date: [id number] * Randell Castillo: VERIFY, PERFORM, SIGN Event Display: Cardiac Rehab Note Authored Date: [id number] Patient: MANUEL JONES Age: 63 years Sex: Female : 1960 Associated Diagnoses: None Author: Randell Castillo Diagnosis Cardiac Rehab Diagnosis: Pt does not have a qualifying diagnosis for Cardiac Rehab, will sign off.. * Micheline Flores RN: PERFORM Event Display: Discharge/Transfer Note Hospital Authored Date: [id number] Nursing Discharge Note Entered On: 04/28/2024 15:18 EST Performed On: 04/28/2024 15:17 EST by Micheline Flores RN Nursing Discharge Note 2 Discharge Time : 04/28/2024 14:45 EST Discharge Level of Care at Discharge : Home/Retirement/Foster Care Patient Left Unit Via : Wheelchair Patient Accompanied Off Unit with : Significant other DC Instructions Provided & Signed by Pt : Yes Patient Understands D/C Instructions : Yes Verbalized Understanding of D/C Plan By : Family, Patient Patient Instructions Discharge Signed : Yes Did Pt have Specialty Bed or Wound Vac : No Micheline Flores RN - 04/28/2024 15:17 EST * Micheline Flores RN: PERFORM Event Display: Patient Education/Instruction Authored Date: [id number] Inpatient Adult Discharge Instructions. [address] [id number] Name: MANUEL JONES : 1960?? Visit: 04/28/2024 06:53?? Current Date: 04/28/2024 12:49 ?? Account: [id number]?? Inpatient Adult Discharge Instructions We would like to thank you for allowing us to assist you with your healthcare needs. The following includes patient education materials and information regarding your injury/illness. Our entire staffstrives to provide an excellent experience for our patients and their families. PLEASE ENSURE YOU FOLLOW-UP PER THE INSTRUCTIONS BELOW! ?? YOUR OPINION IS IMPORTANT TO US! Please complete the survey you may receive by mail or email. Your feedback will be used to make improvements to the healthcare experiences of our patients and their families. Surveys are administered by [employer] ?? If further treatment with your primary care physician or another doctor is recommended, it is important for you to keep the appointment. Call your primary care physician or return to the Emergency Department immediately if your condition worsens, fails to improve, or new symptoms develop. If you need to find a doctor, you can call [facility] Link for a referral at [phone] or toll free at [phone] ([phone]) or log in to [email or web address].. ?? [facility], in keeping with [facility] guidance, no longer requires face masks for staff, patientsor visitors in most situations. Similiar to time spent indoors at other locations, there is the chance that you were exposed to repiratory viruses during your time with us (such as flu or COVID-19). If you develop symptoms concerning for a viral respiratory infection, please seek testing (and treatment if indicated) from your medical provider or home test kit. ?? You can view and manage your care through the patient portal or by using a health care andreia of your choosing. [employer] is a website that allows you to securely view your medical information including your hospital discharge summary, office visit summaries, medications and follow-up visits. You can also request appointments, renew medications, and request access to your medical information using a health care andreia of your choosing, or just ask a question. You can enroll at [email or web address] or register during your next office visit. You have been discharged from [facility], Patient Care Unit: CARE??. If you have any questions regarding these instructions, including results of studies pending, afteryou leave, please call us and we will be happy to assist you 06/10. [facility] Nursing Unit Direct Phone Number, for 06/10 contact and results of studies pending CARE [address] [place] [address] Your Care Team Attending Physician Nataly Robbins MD?? Consulting Providers Nataly Robbins MD?? Discharging Providers Lakshmi MAZARIEGOS, Lorenzo Grimes Tests Performed Below is a partial list of the tests performed during your hospitalization. You may have had other tests and procedures not included in this list. Please discuss all test results with your provider. GLUCOSE POC Basic Metabolic Panel?? CBC?? Glucose POC?? Primary Care Provider Roslyn Bell? Advance Directive Health Care Proxy on File No Discharge Vitals Temperature: 97.6 DegF Height: 162.54 cm Temperature: 97.6 DegF Weight: 94.8 kg Pulse Rate: 60 bpm Body Mass Index:??35.88 kg/m2??Critical Respiratory Rate:??12 br/min??Low Body surface area: 2.07 Systolic Blood Pressure: 123 mm Hg ?? Diastolic Blood Pressure: 76 mm Hg ?? Oxygen Saturation:??93 %??Low ?? Studies Pending All studies ordered during this hospital stay have been completed unless listed below. Please discuss all pending results with your provider listed above in these instructions. ?? Basic Metabolic Panel?? CBC?? What to do next Instructions From Your Doctor ?? Orders?? Daystay Protocol, ??04/28/24 11:12:00 EST?? Scheduled Follow-Up Appointments 2024 8:15 AM EDT ?? With: Lizandro HATHAWAY, Gentry Garza Where: [facility] [address] [place] [address]- Status: Pending You Need to Schedule the Following Appointments Follow Up with??Boris Mcintosh MD When:??Within 1 week: call to discuss follow up visit Why: please call to schedule a follow up appointment Where: ?? Discharge Medications MANUEL JONES :1960 Visit Date:04/28/2024 Medications: Please continue your medications until treatment is completed or stopped by your provider. Medications not listed below should be discontinued. Discuss any questions related to medications with your provider. What How Much When Instructions Next Dose Unchanged Allopurinol (allopurinol 300 mg oral tablet) TAKE 1 TABLET BY MOUTH EVERY DAY WITH LUNCH ?? Take as previously prescribed Unchanged Aspirin (aspirin 81 mg oral delayed release tablet) 1 tab(s) Oral Daily Duration: 100 Days Take as previously prescribed Unchanged Atorvastatin (atorvastatin 80 mg oral tablet) 1 tab(s) Oral Daily Duration: 90 Days This is an increase in dose compared to her current regimen of 40 mg. ?? Take as previously prescribed Unchanged Bisoprolol (bisoprolol 10 mg oral tablet) 1 tab(s) Oral Daily Take as previously prescribed Unchanged Calcium Carbonate (calcium (as carbonate) 500 mg oral tablet, chewable) 1 tab(s) Daily Take as previously prescribed Unchanged Cholecalciferol (Vitamin D3 2000 intl units oral capsule) 1 capsule Oral Daily Take as previously prescribed Unchanged dapagliflozin (Farxiga 10 mg oral tablet) 1 tab(s) Oral Daily Take as previously prescribed Unchanged Durable Medical Equipment (Blood Pressure Monitor) See instructions MONITOR BLOOD PRESSURE NEEDED ?? Take as previously prescribed Unchanged Ezetimibe (ezetimibe 10 mg oral tablet) 1 tab(s) Oral Daily Duration: 90 Days Take in addition to Atorvastatin. ?? Take as previously prescribed Unchanged Glimepiride 4 Milligram Oral Daily Take as previously prescribed Unchanged Ibuprofen (ibuprofen 600 mg oral tablet) See instructions NEEDED FOR PAIN. ?? Take as previously prescribed Unchanged Insulin Glargine (Insulin Glargine Prefilled Pen 100 units/ mL subcutaneous solution) ADMINISTER 15 UNITS UNDER THE SKIN DAILY ?? Take as previously prescribed Unchanged Isosorbide Mononitrate (isosorbide mononitrate 30 mg oral tablet, extended release) 1 tab(s) Oral Daily in the morning Take as previously prescribed Unchanged Lisinopril (lisinopril 40 mg oral tablet) 1 tab(s) Oral Daily at Bedtime Take as previously prescribed Unchanged Magnesium Oxide 400 Milligram Oral Take as previously prescribed Unchanged semaglutide (Ozempic) Subcutaneous Infusion Take as previously prescribed Unchanged Vitamin E (vitamin E 400 iu oral capsule) 1 capsule Oral Daily Take as previously prescribed Prescription Given During Visit No new medications prescribed at time of discharge.?? Laboratory Results Below is a partial list of the most recent Laboratory test results done prior to this discharge. You may have had other tests and procedures not included in this list. Please discuss all test resultswith your provider. GLUCOSE POC (04/28/2024) ???Glucose, POC - 185 mg/dL You will be contacted within 72 hours with your results. Allergies (NKA means No Known Allergies) NKA Problems Active Problems??(8) Chest pain?? DM - Diabetes mellitus?? Hyperlipidemia?? Hypertension?? Insomnia?? Obstructive sleep apnea of adult?? Severe obesity (BMI 35.0-39.9) with comorbidity?? Sweating symptom?? Education Materials Below is the list of Educational Leaflet Providered with your Discharge Instructions. [employer] Patient Education - Procedural Sedation?? [employer] Patient Education - Understanding Transradial Cardiac Catheterization?? [employer] Patient Education - Surgery Radial Cath Approach Discharge Instructions?? Valuables and Belongings I fully understand and agree that [facility] accepts no responsibility for all my personal property including clothing, toilet articles, radios, jewelry, dentures, hearing aids, rings, money, or any other property that is in my possession or is brought to me after admission. I understand certain valuables may be placed in a hospital safe for a short period of time. I understand that the hospital is not liable for loss or damage due to accident, fire, or other natural occurrence while said property is in the safe. I accept full responsibility for any personal property that I keep with me, and will not hold the hospital responsible in case of loss or disappearance. I acknowledge that i have been encouraged to send valuables and belongings home. ?? Review of Valuable and Belonging List: With patient Date for Pt to Sign Valuables/Belongings: 04/28/24 09:57:00 ?? Valuables & Belongings ?? Clothes Electronic devices Jewelry Monetary Items Personal devices Miscellaneous Medications (Valuables) Valuables at Bedside Jacket, Shoes, Other: dress Cell phone ? Valuables Sent Home ? Valuables Sent to Security ? Valuables Sent to Locker ? Other Discharge Information ? Pulmonary Rehab Status?? Pulmonary Rehab Discharge Status?? Respiratory Rate:??12 br/min??Low ? Common Emergency Awareness Tips IS IT A STROKE? Act FAST and Check for these signs: FACE Does the face look uneven? ARM Does one arm drift down? SPEECH Does their speech sound strange? TIME Call at any sign of stroke ?? Heart Attack Signs Chest discomfort: Most heart attacks involve discomfort in the center of the chest and lasts more than a few minutes, or goes away and comes back. It can feel like uncomfortable pressure, squeezing, fullness or pain. Discomfort in upper body: Symptoms can include pain or discomfort in one or both arms, back, neck, jaw or stomach. Shortness of breath: With or without discomfort. Other signs: Breaking out in a cold sweat, nausea, or lightheaded. Remember, MINUTES DO MATTER. If you experience any of these heart attack warning signs, call to get immediate medical attention! ?? Smoking can increase your chances of developing chronic health problems and can cause harmful effects to other family members in your house. If you smoke, you are strongly encouraged to quit. Please call [facility] Link at [phone] or [phone] ([phone]) or log in to [email or web address] for referrals to smoking cessation programs. ?? 896 Suicide & Crisis Lifeline is available 06/10 if you or someone you know needs to find a reason to keep living. By calling 844 you'll be connected to a skilled, trained counselor at a crisis center in your area. INPATIENT DISCHARGE INSTRUCTIONS SIGNATURE PAGE MANUEL JONES Location:[facility] Registration Date and Time:04/28/2024 06:53 EST Primary Care Physician: Roslyn Bell, Attending Physician: Rosendo MAZARIEGOS, [facility], I MANUEL JONES, have received the above patient education materials/instructions and have verbalized understanding. If ambulance or transport services are being used I further acknowledge being given a choice of service. ?? If you need to contact me, please call me at this number: . Patient/Business Machines Teacher Name: Patient/Business Machines Teacher Signature: Relationship to Patient: Witness Name/Signature: Date: * Micheline Flores RN: PERFORM Event Display: Patient Education Leaflets Authored Date: [id number] Procedural Sedation ?? [address] Procedural Sedation Procedural sedation is medicine to ease discomfort, pain, and anxiety during a procedure. The medicine is often given through an IV (intravenous) line in your arm or hand. In some cases, the medicinemay be taken by mouth or inhaled. While you are under sedation, you will likely be awake. But you may not remember it afterward. Why procedural sedation is used Sedation is used for many types of procedures. The goal is to reduce pain, anxiety, and stressful memories of a procedure. It can help your healthcare provider treat you. For example, having a brokenbone fixed may be easier if you feel relaxed. This type of sedation is used only for short, basic procedures. It's not used for complex surgery. Some procedures that use this type of sedation include: ??? Dental surgery ??? Breast biopsy, to take a sample of breast tissue ??? Endoscopy, to look at gastrointestinal problems ??? Bronchoscopy, tocheck for lung problems ??? Bone or joint realignment, to fix a broken bone or dislocated joint ???Minor foot or skin surgery ??? Electrical cardioversion, to restore a normal heart rhythm ??? Lumbar puncture, to check for neurological disease ?? Risks of procedural sedation Risks and possible side effects include: ??? Headache ??? Nausea and vomiting ??? Bad memories of the procedure ??? Slowed breathing ??? Changes in heart rate and blood pressure (rare) ??? Inhalation of stomach contents into your lungs (rare) Side effects will likely go away shortly after the procedure. Your healthcare team will watch your heart rate and breathing during and after your sedation. This is to help prevent problems. Your own risks may vary. They can be based on your age and your overall health. They also depend onthe type of sedation you are given. Talk with your healthcare provider about the risks that apply most to you. ?? Getting ready for procedural sedation Talk with your provider about how to get ready for your procedure. Tell them about all the medicines you take. This includes rjzm-rgu-qycmlid medicines, such as ibuprofen. It also includes vitamins, herbs, and other supplements. You may need to stop taking some medicines before the procedure, such as blood thinners and aspirin. If you smoke, you should stop. This is to lessen the chance of a lungproblem. Talk with your provider if you need help to stop smoking. Tell your provider if you: ??? Have had any problems in the past with sedation or anesthesia ??? Have had any recent changes in your health, such as an infection or fever ??? Are or think you could be Also: ??? Follow any directions you are given for not eating or drinking before procedure. ??? Ask a trusted adult to take you home after the procedure. You can???t drive on the day you have sedation. ??? Ask a trusted adult to stay with you for a few hours while you recover. ??? Don't make any important decisions, such as financial or legal, on the day after you have sedation. ??? Follow all other instructions from your provider. ?? During your procedural sedation You may have your procedure in a hospital or a clinic. Sedation is done by a trained healthcare provider. In general, you can expect the following: ??? You will be given medicine through an IV line in your arm or hand. Or you may get a shot or take it by mouth. Or you may inhale it through a mask. ??? If you have medicine through an IV, you may feel the effects very quickly. You will start to feel relaxed and drowsy. ??? During the procedure, your heart rate, breathing, and blood pressure will be closely watched. Your breathing and blood pressure may decrease a little. But you will likely notneed help with your breathing. You may get a little extra oxygen. This is done through a mask or some soft plastic prongs under your nose. ??? You will likely be awake the whole time. If you do fall asleep, you should be easy to wake up, if needed. You should feel little or no pain. ??? When your procedure is over, the sedative medicine will be stopped. ?? After your procedural sedation You will start to feel more awake and aware. But you will likely be drowsy for a while afterward. You will be closely watched as you become more alert. You may have a faint memory of the procedure. Or you may not remember it at all. You should be able to go home within 1 to 2 hours after your procedure. Plan to have a trusted adult stay with you for a few hours. This person should make sure your condition is not getting worse. They should also watch for problems, and keep you safe. You may have side effects, such as nausea, fatigue, or unsteadiness for up to 24 hours. You may also feel lightheaded. Tell your healthcare provider if they continue. Don???t drive or operate dangerous machines during the next 24 hours. Also, don't make any important business or personal decisions. And don't drink any alcohol during the next 24 hours. Take extra care when walking and moving, You may be at a higher risk of falling. Follow any instructions you were given for eating and drinking. Be sure to follow all after-care directions. ?? When to call your healthcare provider Have someone call your healthcare provider right away if any of the following occur: ??? Drowsinessthat gets worse ??? Weakness or dizziness that gets worse ??? Repeated vomiting ??? Your speech is slurred, and others cannot understand you ??? Severe or ongoing pain from the procedure, not relieved by the pain medicine (if prescribed) ??? Fever of 100.4?? F (38??C) or higher, or as advised by your healthcare provider ??? New rash ?? Call 911 Have someone call 911 if any of the following occur: ??? Trouble breathing ??? Trouble swallowing ??? Chest pain ??? Loss of consciousness or you can't be awakened ?? Last Reviewed Date: 2021 ?? [employer]. All rights reserved. This information is not intended as a substitute for professional medical care. Always follow your healthcare professional's instructions. ?? * Mark MEEHAN, Micheline Palomo: PERFORM Event Display: Patient Education Leaflets Authored Date: [id number] Understanding Transradial Cardiac Catheterization ?? 51894 Understanding Transradial Cardiac Catheterization Cardiac catheterization (cardiac cath) is a common, non-surgical procedure. During the procedure, your doctor will insert a long, thin tube (catheter) into an artery and move it up into your heart. Transradial means the catheter is inserted into an artery in the wrist (the radial artery) rather than the groin (the femoral artery). This procedure can be used to diagnose and treat certain heart problems. Why do I need a transradial cardiac cath? You may need a cardiac cath if signs indicate a problem with your heart. These may include: ??? Symptoms of chest pain, tightness, or heaviness (known as angina). This is a common symptom of blocked heart arteries, known as coronary artery disease. ??? Symptoms of weakness, dizziness, trouble breathing, or swollen legs or feet. These may be symptoms of a problem with a heart valve or the heart muscle. ??? Other test results show heart problems. Tests may include stress tests, heart scans, and echocardiography. During a cardiac cath, your doctor can see the condition of the coronary arteries and heart valves.They can also check how well the heart pumps and the flow of blood through the heart. Your doctor can also measure pressures and take blood samples. And, if needed, they can open blocked arteries. This can help reduce symptoms of angina. Cardiac cath is often done using a catheter inserted into an artery in the groin. During transradial cardiac cath, the catheter is inserted into an artery in the wrist. This can mean less bleeding and a faster recovery. Some people may have blockages in the groin arteries as well as in the heart arteries, making it hard to reach the heart. The transradial approach can be used to get around this problem.? What happens during a transradial cardiac cath? The procedure is done in the hospital or a surgery center. First, an IV line is put in your arm or hand to deliver fluids and medicines. You will likely be given medicine to relax you and make you drowsy. When the procedure starts: ??? You lie on an X-ray table. ??? The skin over the insertion sitein your wrist is numbed. ??? The doctor makes a tiny puncture or incision into the artery in the wrist. They then insert a catheter and threads it through the blood vessel into your heart. ? Thedoctor may inject a contrast fluid through the catheter into the arteries. This fluid makes the arteries show up better on X-rays. ??? Tests may be done to check the condition of your heart and arteries. If needed, the doctor can clear blockages in the arteries or do other repairs. ??? When the doctor is finished, they will remove the catheter and put pressure on the site to prevent bleeding. They could use a special device to reduce how long the pressure needs to be on. Or they could use an inflatable band to keep pressure on the site. Nursing staff will gradually reduce the pressure in the band after your procedure. ??? You will stay for a time to recover, and then go home. If this was anemergency procedure, you will likely stay in the hospital at least overnight. ?? What are the risks of transradial cardiac cath? These include: ??? Bleeding, bruising, infection, or blood clots ??? Damage to the radial artery that may cause injury to the hand ??? Nerve damage to the hand ??? Allergic reaction to the contrast fluid ??? Abnormal heartbeat (arrhythmia) ??? Damage to blood vessels or tissues ??? Kidney damage orfailure ??? The need for emergency heart surgery ??? Heart attack, stroke, or ?? Last Reviewed Date: 2021 ?? 9311-5232 [employer]. All rights reserved. This information is not intended as a substitute for professional medical care. Always follow your healthcare professional's instructions. ?? * Mark MEEHAN, Micheline Palomo: PERFORM Event Display: Patient Education Leaflets Authored Date: [id number] Surgery Radial Cath Approach Discharge Instructions ?? 278 Radial Cath Approach Discharge Instructions ?? Activity Take it easy the rest of the day. Limit your activity on the affected side.?? Act as if your arm is broken for 24 hours. No lifting with affected arm for 24 hours. No pushing or pulling with the affected arm. Do not reach or lift with the affected arm. Do not place excessive pressure on the wrist. ?? Precautions Due to intravenous sedation: It is recommended that someone stay with you for the first night after your procedure. Do not drive or operate hazardous machinery for 24 hours. Do not make legal decisions for 24 hours. Avoid alcohol for 24 hours. Unless directed otherwise, keep yourself hydrated. ?? Dressing/Incision Care You may remove the dressing 24 hours after your procedure. Replace with band aid for an additional 24 hours. You may shower and cleanse the site with soap & water then pat dry. Avoid submersion of site in water x 5 days. Cover the with a clean band aid daily until site is healed. If the band aid becomes soiled, replacewith a clean new one. Do not apply any ointments, lotions, gels or powders to the puncture site. ?? When to contact your doctor If any of the following signs of infection occur: Fever greater than 100 degrees F Increased pain Drainage, redness or warmth at puncture site Tingling of the fingers and hand that last longer than 3 days Slight bubble of blood or bleeding from site: apply manual pressure and notify your doctor ?? Emergency situations: Bleeding from the site that will not stop: apply manual pressure and notify your doctor Profuse bleeding streaming from the puncture site: Apply manual pressure and notify your doctor immediately If your hand becomes bluish, cold to the touch, or painful, notify your doctor immediately or go toEmergency Department. For these emergent situations: If unable to contact your physician, call 911. ?? EKG study * Event Display: ECG 12-Lead Authored Date: Please click on pdf link to open report * Event Display: ECG 12-Lead Authored Date: Ventricular Rate: 56 BPM Atrial Rate: 56 BPM P-R Interval: 156 ms QRS Duration: 84 ms Q-T Interval: 420 ms QTC Calculation(Bazett): 405 ms P [place]: 49 degrees R [place]: 12 degrees T [place]: 6 degrees Sinus bradycardia Nonspecific ST abnormality When compared with ECG of 31-Mar-2024 16:50, Nonspecific T wave abnormality no longer evident in Lateral leads Confirmed by FREDA PEÑA MD ([id number]) on 04/28/2024 12:00:12 PM [place]: FREDA PEÑA MD [facility] Progress note * Micheline Flores RN: PERFORM, SIGN, VERIFY Event Display: Progress Note Hospital Authored Date: [id number] Patient: MANUEL JONES Age: 63 years Sex: Female : 1960 Associated Diagnoses: None Author: Micheline Flores RN Findings Benchling Hose Mender used to review dc instructions w/pt and dtr . Discharge Information Case Management Discharge Plan : Case Management Discharge Plan Data 04/28/2024 15:17 EST Discharge Level of Care at Discharge Home/Retirement/Foster Care * Micheline Flores RN: PERFORM, SIGN, VERIFY Event Display: Progress Note Hospital Authored Date: [id number] Patient: MANUEL JONES Age: 63 years Sex: Female : 1960 Associated Diagnoses: None Author: Micheline Flores RN Findings Dr. Robbins notified that pt POC is 224 - took her glimipride yesterday am and lantus 15units last pmat 8.also took Farxiga 04/27/24 and ozempic 04/22/2024 in case you need to know Patient Care team information Care Team Personnel Name: Roslyn Bell Position: S Associate Professional Member Role: PCP Address: [address] [place] [address] Telecom: Care Team Related Persons Name: JACOBO JONES Name: LAMIN (PRIMARY CONTACT)NICANOR Name: GIOVANNI CARRENO Insurance Providers Guarantor name: MANUEL JONES Health Plan Information #: 2 P[facility] Member Number: [id number] Policy Number: NA Group Number: NA Health Plan Information #: 1 Payer: MEDICARE PART B OUTPT Member Number: [id number] Policy Number: NA Group Number: NA
--- OUTSIDE RECORDS SUMMARY | 2024-05-11 10:02 | XMS_ITS | Encounter Summary ---
Author Organization [facility] Address [address] [place] [address] Care Team Providers Care Principal Military Analyst Name Role Phone Roslyn Akins PA-C Primary Care Provider + [phone] Reason for Referral * Medication Prior Authorization - Pending Review Specialty Diagnoses / Procedures Referred By Leonie t Referred To Contact Diagnoses Type 2 diabetes mellitus without complication, without long-term current use of insulin ([facility]) Roslyn Akins PA-C [address] [place] [phone] Phone: tel: fax: Referral ID Status Reason Start Date Expiration Date V isits Requested Visits Authorized [id number] Pending Review 04/18/2024 04/18/2025 1 1 Reason for Visit * Reason Comments Telehealth (Audio) Encounter Details Date Type Department Care Team (Latest Contact Info) Description 04/18/2024 11:00 AM EST Telemedicine Visit [address] [phone] Roslyn Akins PA-C [address] [place] [phone] Essential hypertension, benign (Primary Dx); Type 2 diabetes mellitus without complication, without long-term current use of insulin ([facility]); Non morbid obesity; Hyperlipidemia, mixed Social History [...] started the lantus had cancer surgery in [place] a few days ago Objective There were [...] complication, without long-term current use of insulin ([facility]) Plan : OZEMPIC 2 MG/DOSE (8 MG/3 [...] identified myself as Roslyn Akins PA-C from [facility]. The patient was identified using their name, , and insurance ID number. The following visit was conducted via TELEPHONE. I educated the patient on the terms of telehealth.The patient was located in a home setting in the [facility] during this telephone visit and gave consent to conduct the visit via telehealth. Provider was located in a home settingin the [facility]. This visit was conducted in a [...] patient involved in televisit included: none No terrazzo worker apprentice was used for this visit as I speak the patient's [place] language. documented in this encounter Plan of Treatment Upcoming Encounters Date Type Department Care Team (Late st Contact Info) Description 05/30/2024 9:40 AM EDT Telemedicine Visit [facility] [address] [place] [phone] Roslyn Akins PA-C [address] [place] [phone] documented as of this encounter Visit Diagnoses Diagnosis Essential hypertension, benign- Primary Type 2 diabetes mellitus without complication, without long-term current use of insulin ([facility]) Non morbid obesity Hyperlipidemia, mixed Mixed hyperlipidemia documented in this encounter Additional Health Concerns Assessment Noted Time PHQ-9 Depression Total Score: 0 04/18/19 25 10:50 AM PST documented as of this encounter Care Teams Principal Military Analyst Relationship Specialty Start Date End Date Roslyn Akins PA-C [facility] [place] [phone] PCP - General Internal Medicine 04/26/18 documented as of this encounter
--- OUTSIDE RECORDS SUMMARY | 2024-05-11 10:02 | XMS_ITS | Clinical Summary ---
Author Organization [facility] Address [address] [place] [address] Care Team Providers Care Composition Instructor Name Role Phone Roslyn Akins PA-C Primary Care Provider [phone] Source Comments PLEASE NOTE, if this patient is a minor, it may be UNLAWFUL to discuss sensitive information that is contained in these records (such as FAMILY PLANNING, MENTAL HEALTH or SUBSTANCE ABUSE) with the minor patient's parent or other person without the patient's specific authorization.[facility] Allergies No known active allergies Medications colchicine 0.6 mg tabletIndications :Hyperuricemia TAKE 2 TABLETS BY MOUTH ON DAY 1 THEN 1 TABLET TWICE DAILY UNTIL GOUT FLARE RESOLVES 60 Tablet 03/20/19 24 Active traZODone (DESYREL) 50 mg tabletIndications :Primary insomnia 1-2 tabs po qhs prn insomnia 180 Tablet 1 04/28/19 24 Active alcohol swabsIndications: Type 2 diabetes mellitus without complication, without long-term current use of insulin ([facility]) Use qd, dx E11.9 50 Each 04/28/19 24 Active lancets (FREESTYLE LANCETS) 28 gaugeIndications: Type 2 diabetes mellitus without complication, without long-term current use of insulin ([facility]) Freestyle lite lancets, use QD, dx E11.9 50 Each 04/28/19 24 Active blood sugar diagnostic stripsIndications :Type 2 diabetes mellitus without complication, without long-term current use of insulin ([facility]) 1 Each daily. Freestyle lite strips use QD, dx E11.9 50 Each 04/28/19 24 Active blood-glucose meter monitoring kitIndications:Ty pe 2 diabetes mellitus without complication, without long-term current use of insulin ([facility]) 1 Each daily. Freestyle lite meter, disp 1, lifetime need, dx E11.9 1 Each 04/28/19 24 Active dapagliflozin propanediol 10 mg tabIndications:Ty pe 2 diabetes mellitus without complication, without long-term current use of insulin ([facility]) TAKE 1 TABLET BY MOUTH DAILY 90 Tablet 2 07/27/19 24 Active diclofenac sodium (VOLTAREN) 1 % gel Apply a small amount to finger joint QID 100 g 11 07/29/19 24 Active lidocaine (LIDODERM) 5 % patchIndications: Chronic left shoulder pain Apply 1 patch to the affected area for a maximum of 12 hours, followed by removal for 12 hours. 30 Patch 4 07/29/19 24 Active betamethasone valerate (VALISONE) 0.1 % creamIndications: Atopic dermatitis, unspecified type Apply topically 2 (two) times daily 60 g 3 07/29/19 24 Active OYSCO 500/D 500 mg-5 mcg (200 unit) per tabletIndications :Non morbid obesity TAKE 1 TABLET BY MOUTH EVERY DAY 90 Tablet 2 09/15/19 24 Active bisoprolol (ZEBETA) 5 mg tablet TAKE 1 TABLET BY MOUTH EVERY DAY 90 Tablet 2 10/19/19 [address] aspirin [address] tabletIndications :Type 2 diabetes mellitus without complication, without long-term current use of insulin ([facility]) TAKE 1 TABLET BY MOUTH ONCE DAILY 90 Tablet 1 10/19/19 24 Active isosorbide mononitrate ER (IMDUR) 30 mg 24 hr tabletIndications :Essential hypertension, benign TAKE 1 TABLET BY MOUTH EVERY MORNING 90 Tablet 2 10/19/19 24 Active insulin glargine 100 unit/mL (3 mL) penIndications:Ty pe 2 diabetes mellitus without complication, without long-term current use of insulin ([facility]) Inject 15 Units into the skin once daily 15 mL 5 12/07/19 24 Active lisinopriL 20 mg tabletIndications :Essential hypertension, benign Take 0.5 Tablets by mouth nightly at bedtime 12/07/19 24 Active clobetasoL (TEMOVATE) 0.05 % ointmentIndicatio ns:Lichen sclerosus of vulva Apply topically nightly at bedtime Please apply to vulva every night for 12 weeks then taper to once or twice a week at night. 60 g 3 12/15/19 24 Active glimepiride (AMARYL) 4 mg tabletIndications :Uncontrolled type 2 diabetes mellitus with hyperglycemia ([facility]) TAKE 1 TABLET BY MOUTH EVERY DAY WITH BREAKFAST 90 Tablet 2 01/13/20 24 Active allopurinoL (ZYLOPRIM) 300 mg tabletIndications :Acute idiopathic gout of left foot TAKE 1 TABLET BY MOUTH EVERY DAY WITH LUNCH 90 Tablet 2 01/13/20 24 Active BD JINA 2ND GEN PEN NEEDLE 32 gauge x ndleIndications:U ncontrolled type 2 diabetes mellitus with hyperglycemia ([facility]) USE DIRECTED EVERY DAY 100 Each 04/08/19 25 Active semaglutide (OZEMPIC) 2 mg/dose (8 mg/3 mL) pen injectorIndicatio ns:Type 2 diabetes mellitus without complication, without long-term current use of insulin ([facility]) Inject 2 mg into the skin once a week 6 mL 3 04/18/19 25 Active ascorbic acid, vitamin C, (VITAMIN C) 500 mg tabletIndications :Acute idiopathic gout of left foot Take 1 Tab by mouth once daily 90 Tab 2 06/06/19 20 025 Discontin ued(Thera py completed /Not needed) esomeprazole magnesium (NEXIUM) [address] capsule TAKE 1 CAPSULE BY MOUTH EVERY DAY NEEDED FOR HEARTBURN 90 Capsule 2 04/27/19 22 025 Discontin ued(Thera py completed /Not needed) isosorbide mononitrate (IMDUR) 30 mg 24 hr tabletIndications :Essential hypertension, benign TAKE 1 TABLET BY MOUTH EVERY MORNING 90 Tablet 2 08/15/19 22 025 Discontin ued(Thera py completed /Not needed) atorvastatin (LIPITOR) 20 mg tabletIndications :Hyperlipidemia, mixed TAKE 1 TABLET BY MOUTH EVERY NIGHT AT BEDTIME 90 Tablet 3 09/14/19 22 025 Discontin ued(Thera py completed /Not needed) MISCELLANEOUS MEDICAL SUPPLY MISCIndications:R outine general medical examination at a health care facility by miscellaneous route once daily 20-30 mmHG knee high compression stockings, disp 2 pairs, dx venous insufficiency 2 Each 04/11/19 23 025 Discontin ued(Thera py completed /Not needed) linaCLOtide 145 mcg capIndications:Fu nctional constipation Take 1 Capsule by mouth every morning before breakfast 90 Capsule 1 11/05/19 23 025 Discontin ued(Thera py completed /Not needed) semaglutide (OZEMPIC) 1 mg/dose (4 mg/3 mL) pen injectorIndicatio ns:Type 2 diabetes mellitus without complication, without long-term current use of insulin ([facility]) Inject 1 mg into the skin once a week 9 mL 4 02/01/20 24 025 Discontin ued(Thera py completed /Not needed) Active Problems Problem Noted Date Diagnosed [...] May 09, 2021 10:36 EST Encounter info: [id number], [facility] 05/09/2021 - 05/09/2021 Contributor system: [employer] Echo Complete-Doppler, Colorflow, M-Mode Transthoracic Echocardiography Report (TTE) Patient Demographics Patient Name KAREN, Date of Study 05/09/2021 [facility] [place] Gender Female Facility Race Ethnicity Date of 1960 Height: 62.6 inches Age 60 year(s) Weight: 238.1 pounds Accession Number [id number] BSA: 2.07 m2 Room Number BMI: 42.72 kg/m2 Referring Physician Margie BOB Interpreting Emma Mccurdy MD Physician Gaming Host [place] Indications Chest pain. Clinical History [...] mmHg E' Lateral Velocity: 7.9 cm/s E/Med E':17.20532 E/Lat E':12.85739 Cardiac Anatomy Left Ventricle/Interventricular Septum The wall [...] 29, 2017 10:07 EDT Verified by: Sue Humhprey MD on June 29, 2017 10:07 EDT Encounter info: [id number], [facility] [facility] [place] [facility], 06/29/2017 - 06/29/2017 Contributor system: [employer] Echo Complete This document has an image Echo Complete-Doppler, Colorflow, M-Mode Transthoracic Echocardiography Report (TTE) Patient Demographics Patient Name KAREN, Date of Study 06/29/2017 [employer] Gender Female Facility Race Ethnicity Date of 1960 Height: 63 inches Age 56 year(s) Weight: 245.01 pounds Accession Number [id number] BSA: 2.11 m2 Room Number BMI: 43.4 kg/m2 Referring Physician Margie BBO Interpreting Sue Humphrey MD Physician Gaming Host Portia Sandoval [facility] Indications Chest pain. Clinical History Hypertension. Diabetes [...] mmHg E' Lateral Velocity: 8.68 cm/s E/Med E':15.60849 E/Lat E':8.36230 Cardiac Anatomy Left Ventricle/Interventricular Septum The left [...] complication, without long-term current use of insulin ([facility]) 03/15/2013 Overview (05/30/2015): Opthal exam 04/2015 Dr. Narvaez @ [facility], no retinopathy Non morbid obesity 03/15/2013 Hyperlipidemia, mixed 03/15/2013 Lumbar degenerative disc disease 03/15/2013 Knee osteoarthritis 03/15/2013 Hyperuricemia 03/15/2013 Renal cyst, right 01/2013 ultrasound 03/15/2013 Encounters Date Type Department Care Team Description 04/18/2024 11:00 AM EST Telemedicine Visit [address] [phone] Roslyn Akins PA-C Essential hypertension, benign (Primary Dx); Type 2 diabetes mellitus without complication, without long-term current use of insulin ([facility]); Non morbid obesity; Hyperlipidemia, mixed from Last 3 Months Immunizations Name Administration [...] Description 05/30/2024 9:40 AM EDT Telemedicine Visit [facility] [address] [place] [phone] Roslyn Akins PA-C [address] [place] [phone] Health Maintenance Due Date Last Done Comments [...] Annual Screen Completed 025, 12/19/2014, 10/21/2013 (Declined) [id number] Discontinued Imm-DTaP/Tdap/Td Discontinued Procedures Procedure Name Priority Date/Time Associated Diagnosis Comments PROCEDURE SCANNED DOCUMENT 04/28/2024 3:00 AM EST REFERRAL SCANNED DOCUMENT 04/19/2024 3:00 AM EST LAB SCANNED DOCUMENT 04/12/2024 3:00 AM EST REFERRAL SCANNED DOCUMENT 04/07/2024 3:00 AM EST REFERRAL SCANNED DOCUMENT 03/23/2024 3:00 AM EST IMAGING SCANNED DOCUMENT 03/03/2024 3:00 AM EST SCREENING MAMMOGRAM BILATERAL Routine 11/25/2023 3:00 AM EDT Encounter for screening mammogram for malignant neoplasm of breast COMPREHENSIVE METABOLIC PANEL Routine 11/10/2023 3:47 PM EDT Left cervical radiculopathy Essential hypertension, benign Hyperlipidemia, mixed Lumbar degenerative disc disease Type 2 diabetes mellitus without complication, without long-term current use of insulin ([facility]) Stage 2 chronic kidney disease Microalbuminuria Hyperuricemia LIPID PANEL Routine 11/10/2023 3:47 PM EDT Left cervical radiculopathy Essential hypertension, benign Hyperlipidemia, mixed Lumbar degenerative disc disease Type 2 diabetes mellitus without complication, without long-term current use of insulin ([facility]) Stage 2 chronic kidney disease Microalbuminuria Hyperuricemia MICROALBUMIN/CREATINI NE RATIO, URINE, RANDOM Routine 11/10/2023 3:47 PM EDT Left cervical radiculopathy Essential hypertension, benign Hyperlipidemia, mixed Lumbar degenerative disc disease Type 2 diabetes mellitus without complication, without long-term current use of insulin ([facility]) Stage 2 chronic kidney disease Microalbuminuria Hyperuricemia HEMOGLOBIN GLYCOSYLATED A1C Routine 11/10/2023 3:47 PM EDT Left cervical radiculopathy Essential hypertension, benign Hyperlipidemia, mixed Lumbar degenerative disc disease Type 2 diabetes mellitus without complication, without long-term current use of insulin ([facility]) Stage 2 chronic kidney disease Microalbuminuria Hyperuricemia [...] Recently Relevant to Health Maintenance Results * PROCEDURE SCANNED DOCUMENT (04/28/2024 3:00 AM EST) 04/28/2024 3:00 AM EST us Roslyn Lukin PA-C SCAN PROCEDURES Final Result * REFERRAL SCANNED DOCUMENT (04/19/2024 3:00 AM EST) Only the most recent of3 resultswithin the time period is included. 04/19/2024 3:00 AM EST us Roslyn Lukin PA-C SCAN REFERRAL Final Result * LAB SCANNED DOCUMENT (04/12/2024 3:00 AM EST) 04/12/2024 3:00 AM EST us Roslyn Lukin PA-C SCAN LAB Final Result * IMAGING SCANNED DOCUMENT (03/03/2024 3:00 AM EST) 03/03/2024 3:00 AM EST us Roslyn Lukin PA-C SCAN IMAGING Final Result * SCREENING MAMMOGRAM BILATERAL (11/25/2023 3:00 AM EDT) 11/25/2023 3:00 AM EDT us Roslyn Akins PA-C IMG MAMMO Final Result * MICROALBUMIN/CREATININE RATIO, URINE, RANDOM (11/10/2023 3:47 PM EDT) CREATININE, RANDOM URINE 100 20 - 275 mg/dL [facility] MICROALBUMIN 0.6 mg/dL [facility] Comment: Reference Range Not established MICROALBUMIN/CREA TININE RATIO, RANDOM URINE 6 <30 mg/g creat [facility] Comment: The ADA defines abnormalities in albumin [...] PM EDT 11/10/2023 3:48 PM EDT Narrative [facility] - 11/12/2023 8:07 PM EDT FASTING:UNKNOWN PATIENT NOT FASTING; ADVISED TO RETURN FOR COLLECTION. Roslyn Akins PA-C LAB - NO BLOOD DRAW Final Re sult [facility] [address] [place] [phone], [facility] [address] [place] [phone] * (ABNORMAL) HEMOGLOBIN GLYCOSYLATED A1C (11/10/2023 3:47 PM EDT) HEMOGLOBIN A1C 9.3(H) <5.7 % of total Hgb [facility] Comment: For someone without known diabetes, a [...] PM EDT 11/10/2023 3:48 PM EDT Narrative [facility] - 11/12/2023 8:07 PM EDT FASTING:UNKNOWN PATIENT NOT FASTING; ADVISED TO RETURN FOR COLLECTION. us Roslyn Akins PA-C LAB - BLOOD DRAW Edited Resu lt - Final [facility] [address] [place] [phone], [facility] [address] [place] [phone] * (ABNORMAL) LIPID PANEL (11/10/2023 3:47 PM EDT) [facility] Signature CHOLESTEROL, TOTAL 170 <200 mg/dL [facility] HDL CHOLESTEROL 37(L) > OR = 50 mg/dL [facility] TRIGLYCERIDES 404(H) <150 mg/dL [facility] Comment: If a non-fasting specimen was collected, consider repeat triglyceride testing on a fasting specimen if clinically indicated. Rosanne et al. J. of Clin. Lipidol. 2015;9:129-169. LDL-CHOLESTEROL See Note [facility]UES [facility] Comment: LDL cholesterol not calculated. Triglyceride levels greater than 400 mg/dL invalidate calculated LDL results. Reference range: <100 Desirable range <100 mg/dL for primary prevention; ?? <70 mg/dL for patients with CHD or diabetic patients with > or = 2 CHD risk factors. LDL-C is now calculated using the Guanakito-Octaviano calculation, which is a validated novel method providing better accuracy than the Friedewald equation in the estimation of LDL-C. Guanakito SS et al. NOE. 2013;310(19): 8041-6843 (http://education.The Chapar/faq/MGV289) CHOL/HDLC RATIO 4.6 <5.0 (calc) [facility] NON-HDL CHOLESTEROL 133(H) <130 mg/dL (calc) [facility] Comment: For patients with diabetes plus 1 major ASCVD risk factor, treating to a non-HDL-C goal of <100 mg/dL (LDL-C of <70 mg/dL) is considered a therapeutic option. Blood Blood / Unknown 11/10/2023 3 :47 PM EDT 11/10/2023 3:48 PM EDT Narrative [facility] - 11/12/2023 8:07 PM EDT FASTING:UNKNOWN PATIENT NOT FASTING; ADVISED TO RETURN FOR COLLECTION. us Roslyn Akins PA-C LAB - BLOOD DRAW Final Resul t [facility] [address] [address], [facility] [address] [place] [address] * (ABNORMAL) COMPREHENSIVE METABOLIC PANEL (11/10/2023 3:47 PM EDT) GLUCOSE 213(H) 65 - 99 mg/dL [facility] Comment: ?Fasting reference interval For someone without known diabetes, a glucose value >125 mg/dL indicates that they may have diabetes and this should be confirmed with a follow-up test. UREA NITROGEN (BUN) 29(H) 7 - 25 mg/dL [facility] CREATININE (blood) 1.94(H) 0.50 - 1.05 mg/dL [facility] EGFR 28(L) > OR = 60 mL/min/1. 73m2 [facility] BUN/CREATININE RATIO 15 6 - 22 (calc) [facility] SODIUM 138 135 - 146 mmol/L [facility] [place] [employer] POTASSIUM 4.3 3.5 - 5.3 mmol/L [facility] CHLORIDE 104 98 - 110 mmol/L [facility] CARBON DIOXIDE 26 20 - 32 mmol/L [facility] CALCIUM 9.7 8.6 - 10.4 mg/dL [facility] PROTEIN, TOTAL 6.6 6.1 - 8.1 g/dL [facility] ALBUMIN 4.3 3.6 - 5.1 g/dL [facility] GLOBULIN 2.3 1.9 - 3.7 g/dL (calc) [facility] ALBUMIN/GLOBULI N RATIO 1.9 1.0 - 2.5 (calc) [facility] BILIRUBIN, TOTAL 1.2 0.2 - 1.2 mg/dL [facility] ALKALINE PHOSPHATASE 120 37 - 153 U/L [facility] AST 11 10 - 35 U/L [facility] ALT 17 6 - 29 U/L [facility] Blood Blood / Unknown 11/10/2023 3 :47 PM EDT 11/10/2023 3:48 PM EDT Narrative [facility] - 11/12/2023 8:07 PM EDT FASTING:UNKNOWN PATIENT NOT FASTING; ADVISED TO RETURN FOR COLLECTION. Roslyn Akins PA-C LAB - BLOOD DRAW Edited Resu lt - Final Performing Organization Address City/[facility]/ZIP Co de Phone Number [facility] [address] [address], [facility] [address] [phone] * EYE EXAM (07/22/2023 3:00 AM EDT) 07/22/2023 3:00 AM EDT Roslyn Bañuelos BLACK JACK DEALER OTHER Edited Result - Final * HEPATITIS C ANTIBODY (10/26/2017 12:09 PM EDT) HEPATITIS C VIRUS SCREEN NEGATIVE NEGATIVE [facility] Blood specimen (specimen) Blood / Unknown 10/26/2017 12:09 PM EDT 10/26/2017 12:23 PM EDT Narrative [facility] - 10/26/2017 4:38 PM EDT [facility] [address] [place] [id number] [place] [id number] ORD# [id number] us Roslyn Akins PA-C LAB - BLOOD DRAW Final Resul t Performing Organization Address City/[facility]/ZIP Co de Phone Number [facility] [employer] [address], * HIV-1 & HIV-2 ANTIBODIES (10/26/2017 12:09 PM EDT) [facility] HIV 1 AND 2 ANTIBODY SCREEN NEGATIVE NEGATIVE [facility] Comment: This assay is a 4th [...] PM EDT 10/26/2017 12:23 PM EDT Narrative [facility] - 10/26/2017 4:38 PM EDT [facility] [address] [place] [address] [place] [id number] ORD# [id number] us Roslyn Akins PA-C LAB - BLOOD DRAW Final Resul t [facility] [address] [place] [address], from Last 3 Months or Most Recently Relevant to Health Maintenance Insurance [employer] [place] Care Teams Composition Instructor Relationship Specialty Start Date End Date Roslyn Akins PA-C [facility] [place] [phone] PCP - General Internal Medicine 04/26/18
[2024-05-11 10:14] LABS: Anion Gap 11 (12-20); Blood Urea Nitrogen 36 mg/dL (9-16); Calcium 9.7 mg/dL (8.4-10.2); Carbon Dioxide 25 mmol/L (22-29); Chloride 109 mmol/L (96-108); Estimated Glomerular Filt Rate 34; Glucose Random 240 mg/dL (60-115); Potassium 4.8 mmol/L (3.3-5.1); Sodium 140 mmol/L (135-145)
== END 2024-05-11 09:06 | disposition home or self-care (01) ==
LOC: HO.LAB 09:05
PROVIDERS: PCP Physician Assistant; Visit Provider Internal Medicine Hypertension Specialist
DX: N18.30 Chronic kidney disease, stage 3 unspecified (principal)
CPT/HCPCS: 36415; 80048

== ENCOUNTER 2024-05-16 11:14 | Outpatient (AMB) | payer MEDICARE, MEDICAID, SELFPAY ==
[2024-05-16 11:15] VITALS: BP 98/64; PULSE 76; O2SAT 97; BMI 38.4
--- NOTE | 2024-05-16 11:15 | HO.NEPHOV ---
Vital Signs 05/16/24 11:15 Height 5 ft 2 in Weight 210 lb BMI 38.4 BP 98/64 Blood Pressure Location Lt brachial Position Sitting Pulse 76 Pulse Source Pulse Oximeter Pulse Oximetry (%) 97 Oxygen Delivery Method Room Air Intake Visit Reasons: Atrophy of kidney/ Conf Pilates Coordinator Required: Yes Pilates Coordinator Services: Pilates Coordinator Present (Patient called Pilates Coordinator ) Accompanied by: Self / Same As Patient Allergies No Known Allergies Allergy (Verified 05/16/24 11:18) Medication List - Last Reconciled 05/16/24 by Abdifatah Estrada MD allopurinol 300 mg PO DAILY aspirin 81 mg PO DAILY atorvastatin 80 mg PO BEDTIME bisoprolol fumarate 2.5 mg PO DAILY calcium carbonate-vitamin D3 500 mg-5 mcg (200 unit) (Oysco 500/D) 1 tab PO DAILY colchicine 0.6 mg PO DAILY dapagliflozin propanediol (Farxiga) 10 mg PO DAILY ezetimibe 10 mg PO DAILY glimepiride 4 mg PO QAM insulin glargine-yfgn units subcut isosorbide mononitrate ER 30 mg PO DAILY lisinopril 10 mg PO DAILY semaglutide (Ozempic) mg subcut QWEEK vitamin E mixed units PO HPI Comments Details: Bettina is a pleasant 63-year-old woman referred for a while patient of CKD. She has had diabetes mellitus for more than 15 years. In 03/04/2024 she had a serum creatinine of 1.6 and EGFR of 30 mL/minute. She was found to have mild hydronephrosis on right kidney and mild fullness of the left pelvis without hydronephrosis. Right kidney measured 10.3 cm left kidney measured 11.1 cm. This was followed by a renal scan which revealed a normal left kidney and significantly less functional contribution from the right kidney. She was seen by Urology and referred for further evaluation. Pilates Coordinator service was used. She has been on Ozempic for quite some time. She was lost about 30 lb. Blood pressure has been rather low and she has had episodes of lightheadedness. No history of syncope. No shortness of breath no chest pain no urinary symptoms no fever no rash no edema. No rash no joint pains. 04/19/24 Feels dizzy [facility] Medical History Epigastric pain Hyperuricemia Stage 2 chronic kidney disease Type 2 diabetes mellitus Lumbar degenerative disc disease Hyperlipidemia Hypertension Left cervical radiculopathy Physical Exam Vital Signs: Last Vital Signs Pulse 76 05/16/24 11:15 BP 98/64 05/16/24 11:15 Pulse Ox 97 05/16/24 11:15 Oxygen Delivery Method Room Air 05/16/24 11:15 BMI result Body Mass Index 38.4 Comfortable Neck supple no JVD. Lungs entry equal no rales. Heart S1-S2 heard no gallop or rub. Abdomen soft nontender. Neuro alert awake oriented. No asterixis. Extremities no edema. Results Reviewed Results Reviewed: The relative function of the two kidneys based on the 2-3 minute images are: Left 73% and right 27%. NM/NM renal flow w pharm int IMPRESSION: LEFT KIDNEY: Normal function. RIGHT KIDNEY: Significantly less functional contribution related to the left. Preserved parenchymal function and dilated but nonobstructing collecting system. Nephrology Results: Sodium 140 mmol/L (135-145) 05/11/24 Potassium 4.8 mmol/L (3.3-5.1) 05/11/24 Chloride 109 mmol/L (96-108) H 05/11/24 Carbon Dioxide 25 mmol/L (22-29) 05/11/24 BUN 36 mg/dL (9-16) H 05/11/24 Creatinine 1.53 mg/dL (0.5-1.4) H 05/11/24 Calcium 9.7 mg/dL (8.4-10.2) 05/11/24 PTH Intact 131.0 pg/mL (8.7-77.1) H 04/12/24 Urine Protein Negative mg/dL (Neg-Trace) 04/12/24 Assessment & Plan Assessment & Plan (1) CKD (chronic kidney disease) stage 3, GFR 30-59 ml/min: Code(s): N18.30 - Chronic kidney disease, stage 3 unspecified Category: Medical Plan 62-year-old woman with longstanding diabetes mellitus and obesity has CKD 3B. She probably has underlying diabetic kidney disease. Renal ultrasonogram revealed mild hydronephrosis but I doubt if obstructive uropathy is the main contributing factor. Blood pressure has been well controlled. Again, office reading was low today. There could be a component of hypoperfusion. urine protein excretion < 211 mg in 24 hr urine collection ! 24 urine collection creatinine clearance 88 ml/mt with Sr Cr of 1.4. Optimize blood pressure. BP is low despite lowering lisinopril from 20 mg down to 10 mg. Discontinue lisinopril 10 mg daily Recheck BP and renal panel in 3 weeks Continue to avoid hypotension and avoid nephrotoxic agents. Goal is to slow the progression of renal disease. I have discussed importance of tight control of blood sugar to slow the progression. She is currently on SGLT2 inhibitor and I would continue the same. All questions were answered. Orders: Orders Basic Metabolic Panel 5 Weeks N18.30 - Chronic kidney disease, stage 3 unspecified Coding Level of Care Code Est Pt Level 4 (98978) Diagnoses CKD (chronic kidney disease) stage 3, GFR 30-59 ml/min N18.30
--- OUTSIDE RECORDS SUMMARY | 2024-05-16 13:22 | XMS_ITS | Encounter Summary ---
Author Organization [facility] Address [address] [place] [address] Care Team Providers Care Import/Export Specialist Name Role Phone Roslny Akins PA-C Primary Care Provider + [phone] Reason for Referral * Medication Prior Authorization - Closed Specialty Diagnoses / Procedures Referred By Leonie t Referred To Contact Diagnoses Type 2 diabetes mellitus without complication, without long-term current use of insulin ([facility]) Roslyn Akins PA-C [address] [place] [phone] Phone: tel: fax: Referral ID Status Reason Start Date Expiration Date Visits Re quested Visits Authorized [id number] Closed 04/18/2024 04/18/2025 1 1 Reason for Visit * Reason Comments Telehealth (Audio) Encounter Details Date Type Department Care Team (Latest Contact Info) Description 04/18/2024 11:00 AM EST Telemedicine Visit [address] [phone] Roslyn Akins PA-C [address] [place] [phone] Essential hypertension, benign (Primary Dx); Type 2 diabetes mellitus without complication, without long-term current use of insulin ([facility]); Non morbid obesity; Hyperlipidemia, mixed Social [...] started the lantus had cancer surgery in [place] a few days ago Objective There were [...] complication, without long-term current use of insulin ([facility]) Plan : OZEMPIC 2 MG/DOSE (8 MG/3 [...] identified myself as Roslyn Akins PA-C from [facility]. The patient was identified using their name, , and insurance ID number. The following visit was conducted via TELEPHONE. I educated the patient on the terms of telehealth.The patient was located in a home setting in the [facility] during this telephone visit and gave consent to conduct the visit via telehealth. Provider was located in a home settingin the [facility]. This visit was conducted in a private [...] patient involved in televisit included: none No compliance investigator was used for this visit as I speak the patient's chilkat language. documented in this encounter Plan of Treatment Upcoming Encounters Date Type Department Care Team (Late st Contact Info) Description 05/30/2024 9:40 AM EDT Telemedicine Visit [facility] [address] [place] [phone] Roslyn Akins PA-C [address] [place] [phone] documented as of this encounter Visit Diagnoses Diagnosis Essential hypertension, benign- Primary Type 2 diabetes mellitus without complication, without long-term current use of insulin ([facility]) Non morbid obesity Hyperlipidemia, mixed Mixed hyperlipidemia documented in this encounter Additional Health Concerns Assessment Noted Time PHQ-9 Depression Total Score: 0 04/18/19 25 10:50 AM PST documented as of this encounter Care Teams Import/Export Specialist Relationship Specialty Start Date End Date Roslyn Akins PA-C [address] [place] [phone] PCP - General Internal Medicine 04/26/18 documented as of this encounter
--- OUTSIDE RECORDS SUMMARY | 2024-05-16 13:22 | XMS_ITS | Clinical Summary ---
Author Organization [facility] Address [address] [place] [address] Care Team Providers Care Pressurised Container Filler Name Role Phone Roslyn Akins PA-C Primary Care Provider [phone] Source Comments PLEASE NOTE, if this patient [...] without long-term current use of insulin ([facility]) Use qd, dx E11.9 50 Each 04/28/19 24 Active lancets (FREESTYLE LANCETS) 28 gaugeIndications: Type 2 diabetes mellitus without complication, without long-term current use of insulin ([facility]) Freestyle lite lancets, use QD, dx E11.9 50 Each 04/28/19 24 Active blood sugar diagnostic stripsIndications :Type 2 diabetes mellitus without complication, without long-term current use of insulin ([facility]) 1 Each daily. Freestyle lite strips use QD, dx E11.9 50 Each 04/28/19 24 Active blood-glucose meter monitoring kitIndications:Ty pe 2 diabetes mellitus without complication, without long-term current use of insulin ([facility]) 1 Each daily. Freestyle lite meter, disp 1, lifetime need, dx E11.9 1 Each 04/28/19 24 Active dapagliflozin propanediol 10 mg tabIndications:Ty pe 2 diabetes mellitus without complication, without long-term current use of insulin ([facility]) TAKE 1 TABLET BY MOUTH DAILY 90 [...] complication, without long-term current use of insulin ([facility]) TAKE 1 TABLET BY MOUTH ONCE DAILY 90 Tablet 1 10/19/19 24 Active isosorbide mononitrate ER (IMDUR) 30 mg 24 hr tabletIndications :Essential hypertension, benign TAKE 1 TABLET BY MOUTH EVERY MORNING 90 Tablet 2 10/19/19 24 Active insulin glargine 100 unit/mL (3 mL) penIndications:Ty pe 2 diabetes mellitus without complication, without long-term current use of insulin ([facility]) Inject 15 Units into the skin once [...] type 2 diabetes mellitus with hyperglycemia ([facility]) TAKE 1 TABLET BY MOUTH EVERY DAY WITH BREAKFAST 90 Tablet 2 01/13/20 24 Active allopurinoL (ZYLOPRIM) 300 mg tabletIndications :Acute idiopathic gout of left foot TAKE 1 TABLET BY MOUTH EVERY DAY WITH LUNCH 90 Tablet 2 01/13/20 24 Active BD JINA 2ND GEN PEN NEEDLE 32 gauge x ndleIndications:U ncontrolled type 2 diabetes mellitus with hyperglycemia ([facility]) USE DIRECTED EVERY DAY 100 Each 04/08/19 25 Active semaglutide (OZEMPIC) 2 mg/dose (8 mg/3 mL) pen injectorIndicatio ns:Type 2 diabetes mellitus without complication, without long-term current use of insulin ([facility]) Inject 2 mg into the skin once [...] without long-term current use of insulin ([facility]) Inject 1 mg into the skin once [...] May 09, 2021 10:36 EST Encounter info: [id number], [facility], One Time OP, 05/09/2021 - 05/09/2021 Contributor system: [employer] Echo Complete-Doppler, Colorflow, M-Mode Transthoracic Echocardiography Report (TTE) Patient Demographics Patient Name CINDA, Date of Study 05/09/2021 [facility] Gender Female Facility Race Ethnicity Date of 1960 Height: 62.6 inches Age 60 year(s) Weight: 238.1 pounds Accession Number [id number] BSA: 2.07 m2 Room Number BMI: 42.72 kg/m2 Referring Physician Margie BOB Interpreting Emma Mccurdy MD 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 Clinical History [...] mmHg E' Lateral Velocity: 7.9 cm/s E/Med E':17.68728 E/Lat E':12.17633 Cardiac Anatomy Left Ventricle/Interventricular Septum The wall [...] June 29, 2017 10:07 EDT Encounter info: [id number], [facility], One Time OP, 06/29/2017 - 06/29/2017 Contributor system: [employer] Echo Complete This document has an image Echo Complete-Doppler, Colorflow, M-Mode Transthoracic Echocardiography Report (TTE) Patient Demographics Patient Name CINDA, Date of Study 06/29/2017 [employer] Gender Female Facility Race Ethnicity Date of 1960 Height: 63 inches Age 56 year(s) Weight: 245.01 pounds Accession Number [id number] BSA: 2.11 m2 Room Number BMI: 43.4 kg/m2 Referring Physician Margie BOB Interpreting Sue Humphrey MD Physician 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 Clinical History Hypertension. [...] mmHg E' Lateral Velocity: 8.68 cm/s E/Med E':15.68609 E/Lat E':8.70566 Cardiac Anatomy Left Ventricle/Interventricular Septum The left [...] complication, without long-term current use of insulin ([facility]) 03/15/2013 Overview (05/30/2015): Opthal exam 04/2015 Dr. Narvaez [facility], no retinopathy Non morbid obesity 03/15/2013 Hyperlipidemia, mixed 03/15/2013 Lumbar degenerative disc disease 03/15/2013 Knee osteoarthritis 03/15/2013 Hyperuricemia 03/15/2013 Renal cyst, right 01/2013 ultrasound 03/15/2013 Encounters Date Type Department Care Team Description 04/18/2024 11:00 AM EST Telemedicine Visit [address] [phone] Roslyn Akins PA-C Essential hypertension, benign (Primary Dx); Type 2 diabetes mellitus without complication, without long-term current use of insulin ([facility]); Non morbid obesity; Hyperlipidemia, mixed from Last [...] Description 05/30/2024 9:40 AM EDT Telemedicine Visit [facility] [address] [place] [phone] Roslyn Akins PA-C [address] [place] [phone] Health Maintenance Due Date Last Done Comments [...] Annual Screen Completed 025, 12/19/2014, 10/21/2013 (Declined) [id number] Discontinued Imm-DTaP/Tdap/Td Discontinued Procedures Procedure Name Priority [...] complication, without long-term current use of insulin ([facility]) Stage 2 chronic kidney disease Microalbuminuria Hyperuricemia LIPID PANEL Routine 11/10/2023 3:47 PM EDT Left cervical radiculopathy Essential hypertension, benign Hyperlipidemia, mixed Lumbar degenerative disc disease Type 2 diabetes mellitus without complication, without long-term current use of insulin ([facility]) Stage 2 chronic kidney disease Microalbuminuria Hyperuricemia MICROALBUMIN/CREATINI NE RATIO, URINE, RANDOM Routine 11/10/2023 3:47 PM EDT Left cervical radiculopathy Essential hypertension, benign Hyperlipidemia, mixed Lumbar degenerative disc disease Type 2 diabetes mellitus without complication, without long-term current use of insulin ([facility]) Stage 2 chronic kidney disease Microalbuminuria Hyperuricemia HEMOGLOBIN GLYCOSYLATED A1C Routine 11/10/2023 3:47 PM EDT Left cervical radiculopathy Essential hypertension, benign Hyperlipidemia, mixed Lumbar degenerative disc disease Type 2 diabetes mellitus without complication, without long-term current use of insulin ([facility]) Stage 2 chronic kidney disease Microalbuminuria Hyperuricemia [...] RANDOM URINE 100 20 - 275 mg/dL [facility] MICROALBUMIN 0.6 mg/dL [facility] [employer] Comment: Reference Range Not established MICROALBUMIN/CREA TININE RATIO, RANDOM URINE 6 <30 mg/g creat [facility] Comment: The ADA defines abnormalities in albumin [...] PM EDT 11/10/2023 3:48 PM EDT Narrative [facility] [employer] - 11/12/2023 8:07 PM EDT FASTING:UNKNOWN PATIENT NOT FASTING; ADVISED TO RETURN FOR COLLECTION. Roslyn Akins PA-C LAB - NO BLOOD DRAW Final Re sult [facility] [address] [place] [phone], [facility] [address] [place] [phone] * (ABNORMAL) HEMOGLOBIN GLYCOSYLATED A1C (11/10/2023 3:47 PM EDT) HEMOGLOBIN A1C 9.3(H) <5.7 % of total Hgb [facility] Comment: For someone without known diabetes, a [...] PM EDT 11/10/2023 3:48 PM EDT Narrative [facility] - 11/12/2023 8:07 PM EDT FASTING:UNKNOWN PATIENT NOT FASTING; ADVISED TO RETURN FOR COLLECTION. us Roslyn Akins PA-C LAB - BLOOD DRAW Edited Resu lt - Final [facility] [address] [place] [phone], [facility] [address] [place] [phone] * (ABNORMAL) LIPID PANEL (11/10/2023 3:47 PM EDT) [facility] Signature CHOLESTEROL, TOTAL 170 <200 mg/dL [facility] HDL CHOLESTEROL 37(L) > OR = 50 mg/dL [facility] TRIGLYCERIDES 404(H) <150 mg/dL [facility] Comment: If a non-fasting specimen was collected, consider repeat triglyceride testing on a fasting specimen if clinically indicated. Rosanne et al. J. of Clin. Lipidol. 2015;9:129-169. LDL-CHOLESTEROL See Note [facility] [employer] Comment: LDL cholesterol not calculated. Triglyceride levels [...] LDL-C. Guanakito SS et al. NOE. 2013;310(19): 3183-7834 (http://education.Cvergenx/faq/HTL212) CHOL/HDLC RATIO 4.6 <5.0 (calc) [facility] NON-HDL CHOLESTEROL 133(H) <130 mg/dL (calc) [facility] Comment: For patients with diabetes plus 1 major ASCVD risk factor, treating to a non-HDL-C goal of <100 mg/dL (LDL-C of <70 mg/dL) is considered a therapeutic option. Blood Blood / Unknown 11/10/2023 3 :47 PM EDT 11/10/2023 3:48 PM EDT Narrative [facility] - 11/12/2023 8:07 PM EDT FASTING:UNKNOWN PATIENT NOT FASTING; ADVISED TO RETURN FOR COLLECTION. us Roslyn Akins PA-C LAB - BLOOD DRAW Final Resul t [facility] [address] [address], [facility] [address] [place] [address] * (ABNORMAL) COMPREHENSIVE METABOLIC PANEL (11/10/2023 3:47 PM EDT) GLUCOSE 213(H) 65 - 99 mg/dL [facility] Comment: ?Fasting reference interval For someone without known diabetes, a glucose value >125 mg/dL indicates that they may have diabetes and this should be confirmed with a follow-up test. UREA NITROGEN (BUN) 29(H) 7 - 25 mg/dL [facility] CREATININE (blood) 1.94(H) 0.50 - 1.05 mg/dL [facility] EGFR 28(L) > OR = 60 mL/min/1. 73m2 [facility] BUN/CREATININE RATIO 15 6 - 22 (calc) [facility] SODIUM 138 135 - 146 mmol/L [facility] [place] [facility] POTASSIUM 4.3 3.5 - 5.3 mmol/L [facility] CHLORIDE 104 98 - 110 mmol/L [facility] CARBON DIOXIDE 26 20 - 32 mmol/L [facility] CALCIUM 9.7 8.6 - 10.4 mg/dL [facility] PROTEIN, TOTAL 6.6 6.1 - 8.1 g/dL [facility] ALBUMIN 4.3 3.6 - 5.1 g/dL [facility] GLOBULIN 2.3 1.9 - 3.7 g/dL (calc) [facility] ALBUMIN/GLOBULI N RATIO 1.9 1.0 - 2.5 (calc) [facility] BILIRUBIN, TOTAL 1.2 0.2 - 1.2 mg/dL [facility] ALKALINE PHOSPHATASE 120 37 - 153 U/L [facility] AST 11 10 - 35 U/L [facility] ALT 17 6 - 29 U/L [facility] [facility] Blood Blood / Unknown 11/10/2023 3 :47 PM EDT 11/10/2023 3:48 PM EDT Narrative [facility] - 11/12/2023 8:07 PM EDT FASTING:UNKNOWN PATIENT NOT FASTING; ADVISED TO RETURN FOR COLLECTION. Roslyn Akins PA-C LAB - BLOOD DRAW Edited Resu lt - Final Performing Organization Address City/[facility]/ZIP Co de Phone Number [facility] [address] [address], [facility] [address] [phone] * EYE EXAM (07/22/2023 3:00 AM EDT) 07/22/2023 3:00 AM EDT Roslyn Bañuelos DIRECTOR BIOLOGY OTHER Edited Result - Final * HEPATITIS C ANTIBODY (10/26/2017 12:09 PM EDT) HEPATITIS C VIRUS SCREEN NEGATIVE NEGATIVE [facility] Blood specimen (specimen) Blood / Unknown 10/26/2017 12:09 PM EDT 10/26/2017 12:23 PM EDT Narrative [facility] - 10/26/2017 4:38 PM EDT [facility] [address] [place] [address] [place] [id number] ORD# [id number] us Roslyn Akins PA-C LAB - BLOOD DRAW Final Resul t Performing Organization Address City/[facility]/ZIP Co de Phone Number [facility] [employer] [address], * HIV-1 & HIV-2 ANTIBODIES (10/26/2017 12:09 PM EDT) [facility] Signature HIV 1 AND 2 ANTIBODY SCREEN NEGATIVE NEGATIVE [facility] Comment: This assay is a 4th generation [...] PM EDT 10/26/2017 12:23 PM EDT Narrative [facility] - 10/26/2017 4:38 PM EDT [facility] [address] [place] [address] [place] [id number] ORD# [id number] us Roslyn Akins PA-C LAB - BLOOD DRAW Final Resul t [facility] [address] [place] [address], from Last 3 Months or Most Recently Relevant to Health Maintenance Insurance [employer] - [place] MED[place] Care Teams Pressurised Container Filler Relationship Specialty Start Date End Date Roslyn Akins PA-C [facility] [place] [phone] PCP - General Internal Medicine 04/26/18
== END 2024-05-16 11:32 | disposition home or self-care (01) ==
PROVIDERS: PCP Physician Assistant; Visit Provider Internal Medicine Hypertension Specialist
DX: N18.30 Chronic kidney disease, stage 3 unspecified (principal)
CPT/HCPCS: 99214

== ENCOUNTER → 2024-05-16 11:14 | Outpatient (BNVA) | payer MEDICARE, MEDICAID, SELFPAY | PROVIDERS: PCP Physician Assistant; Visit Provider Internal Medicine Hypertension Specialist | DX: N18.30 Chronic kidney disease, stage 3 unspecified (principal) | CPT/HCPCS: 99212 ==

== ENCOUNTER 2024-06-23 09:37 | Outpatient (REF) | payer MEDICARE, MEDICAID, SELFPAY ==
[2024-06-23 10:37] LABS: Appearance Urine Clear; Color Urine Yellow; Glucose Urine UA >=1000 mg/dL (Negative); Leukocyte Esterase Urine Negative (Negative); Nitrite Urine Negative (Negative); PH 5.5 (5.0-9.0); Specific Gravity - Urine 1.025 (1.005-1.025); UMIC TRIGGER UA YES; Urine Blood Negative (Negative); Urine Ketones Negative (Negative); Urine Protein Negative (Neg-Trace)
[2024-06-23 10:45] LABS: Bacteria Urine None Seen (None Seen); Hyaline Casts Urine 0-2 /LPF (0-2); RBC Urine 0-2 /HPF (0-2); Squamous Epithelial Cell Urine 0-2 /HPF (0-2); WBC Urine 0-5 /HPF (0-5)
--- OUTSIDE RECORDS SUMMARY | 2024-06-23 10:46 | XMS_ITS | Clinical Summary ---
Author Organization [facility] Address [address] [place] [address] Care Team Providers Care Billing Typist Name Role Phone Roslyn Akins PA-C Primary Care Provider [phone] Source Comments PLEASE NOTE, if this patient is a minor, it may be UNLAWFUL to discuss sensitive information that is contained in these records (such as FAMILY PLANNING, MENTAL HEALTH or SUBSTANCE ABUSE) with the minor patient's parent or other person without the patient's specific authorization.[facility] Allergies Active Allergy Reactions Criticality Noted Date Comments Insulin Glargine Hypersensitivity Low 05/30/2024 itching Medications colchicine 0.6 mg tabletIndications :Hyperuricemia TAKE 2 TABLETS BY MOUTH ON DAY 1 THEN 1 TABLET TWICE DAILY UNTIL GOUT FLARE RESOLVES 60 Tablet 11 03/20/19 24 Active traZODone (DESYREL) 50 mg tabletIndications :Primary insomnia 1-2 tabs po qhs prn insomnia 180 Tablet 1 04/28/19 24 Active alcohol swabsIndications: Type 2 diabetes mellitus without complication, without long-term current use of insulin ([facility]) Use qd, dx E11.9 50 Each 04/28/19 24 Active lancets (FREESTYLE LANCETS) 28 gaugeIndications: Type 2 diabetes mellitus without complication, without long-term current use of insulin ([facility]) Freestyle lite lancets, use QD, dx E11.9 50 Each 04/28/19 24 Active blood sugar diagnostic stripsIndications :Type 2 diabetes mellitus without complication, without long-term current use of insulin ([facility]) 1 Each daily. Freestyle lite strips use QD, dx E11.9 50 Each 04/28/19 24 Active blood-glucose meter monitoring kitIndications:Ty pe 2 diabetes mellitus without complication, without long-term current use of insulin ([facility]) 1 Each daily. Freestyle lite meter, disp 1, lifetime need, dx E11.9 1 Each 04/28/19 24 Active dapagliflozin propanediol 10 mg tabIndications:Ty pe 2 diabetes mellitus without complication, without long-term current use of insulin ([facility]) TAKE 1 TABLET BY MOUTH DAILY [...] complication, without long-term current use of insulin ([facility]) TAKE 1 TABLET BY MOUTH ONCE DAILY 90 Tablet 1 10/19/19 24 Active isosorbide mononitrate ER (IMDUR) 30 mg 24 hr tabletIndications :Essential hypertension, benign TAKE 1 TABLET BY MOUTH EVERY MORNING 90 Tablet 2 10/19/19 24 Active lisinopriL 20 mg tabletIndications :Essential [...] :Uncontrolled type 2 diabetes mellitus with hyperglycemia ([facility]) TAKE 1 TABLET BY MOUTH EVERY DAY WITH BREAKFAST 90 Tablet 2 01/13/20 24 Active allopurinoL (ZYLOPRIM) 300 mg tabletIndications :Acute idiopathic gout of left foot TAKE 1 TABLET BY MOUTH EVERY DAY WITH LUNCH 90 Tablet 2 01/13/20 24 Active BD JINA 2ND GEN PEN NEEDLE 32 gauge x ndleIndications:U ncontrolled type 2 diabetes mellitus with hyperglycemia ([facility]) USE DIRECTED EVERY DAY 100 Each 04/08/19 25 Active semaglutide (OZEMPIC) 2 mg/dose (8 mg/3 mL) pen injectorIndicatio ns:Type 2 diabetes mellitus without complication, without long-term current use of insulin ([facility]) Inject 2 mg into the skin once a week 6 mL 3 04/18/19 25 Active atorvastatin (LIPITOR) 80 mg tabletIndications :Type 2 diabetes mellitus without complication, without long-term current use of insulin ([facility]),Hyperli pidemia, mixed Take 1 Tablet by mouth nightly at bedtime 90 Tablet 3 05/31/19 25 Active ezetimibe (ZETIA) 10 mg tabletIndications :Type 2 diabetes mellitus without complication, without long-term current use of insulin ([facility]),Hyperli pidemia, mixed TAKE 1 TABLET BY MOUTH DAILY TAKE IN ADDITION TO ATORVASTATIN Active insulin glargine 100 unit/mL (3 mL) penIndications:Ty pe 2 diabetes mellitus without complication, without long-term current use of insulin ([facility]) Inject 15 Units into the skin once daily 15 mL 5 12/07/19 24 025 Discontin ued(Patie nt preferenc e) atorvastatin (LIPITOR) 80 mg tablet TAKE 1 TABLET BY MOUTH DAILY THIS IS AN. INCREASE IN DOSE COMPARED TO HER CURRENT REGIMEN OF 40 MG 025 Discontin ued(Reord er (E-Cancel Not Sent)) Active Problems Problem Noted Date Diagnosed Date [...] May 09, 2021 10:36 EST Encounter info: [id number], [facility] [place] [facility] [place], 05/09/2021 - 05/09/2021 Contributor system: [employer] Echo Complete-Doppler, Colorflow, M-Mode Transthoracic Echocardiography Report (TTE) Patient Demographics Patient Name CINDA, Date of Study 05/09/2021 MANUEL Chaves Gender Female Facility Race Ethnicity Date of 1960 Height: 62.6 inches Age 60 year(s) Weight: 238.1 pounds Accession Number [id number] BSA: 2.07 m2 Room Number BMI: 42.72 kg/m2 Referring Physician Margie BOB Interpreting Emma Mccurdy MD Physician E 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 Clinical History [...] mmHg E' Lateral Velocity: 7.9 cm/s E/Med E':17.40608 E/Lat E':12.42671 Cardiac Anatomy Left Ventricle/Interventricular Septum The wall [...] June 29, 2017 10:07 EDT Encounter info: [id number], [facility], One Time OP, 06/29/2017 - 06/29/2017 Contributor system: [employer] Echo Complete This document has an image Echo Complete-Doppler, Colorflow, M-Mode Transthoracic Echocardiography Report (TTE) Patient Demographics Patient Name CINDA, Date of Study 06/29/2017 [facility] Gender Female Facility Race Ethnicity Date of 1960 Height: 63 inches Age 56 year(s) Weight: 245.01 pounds Accession Number [id number] BSA: 2.11 m2 Room Number BMI: 43.4 kg/m2 Referring Physician Margie BOB Interpreting Sue Humphrey MD Physician E 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 Clinical [...] mmHg E' Lateral Velocity: 8.68 cm/s E/Med E':15.20506 E/Lat E':8.82083 Cardiac Anatomy Left Ventricle/Interventricular Septum The left [...] complication, without long-term current use of insulin ([facility]) 03/15/2013 Overview (05/30/2015): Opthal exam 04/2015 Dr. Narvaez @ [facility], no retinopathy Non morbid obesity 03/15/2013 Hyperlipidemia, mixed 03/15/2013 Lumbar degenerative disc disease 03/15/2013 Knee osteoarthritis 03/15/2013 Hyperuricemia 03/15/2013 Renal cyst, right 01/2013 ultrasound 03/15/2013 Encounters Date Type Department Care Team Description 05/30/2024 9:40 AM EDT Telemedicine Visit [address] [phone] Roslyn Akins PA-C Essential hypertension, benign (Primary Dx); Type 2 diabetes mellitus without complication, without long-term current use of insulin ([facility]); Non morbid obesity; Hyperlipidemia, mixed; Ingrown toenail of right foot 04/18/2024 11:00 AM EST Telemedicine Visit [address] [phone] Roslyn Akins PA-C Essential hypertension, benign (Primary Dx); Type 2 diabetes mellitus without complication, without long-term current use of insulin ([facility]); Non morbid obesity; Hyperlipidemia, mixed from Last 3 Months Immunizations Immunization Administration Dates Next Due PNEUMOCOCCAL CONJUGATE PCV [...] 11/10/2023 2:48 PM EDT Plan of Treatment Health Maintenance Due Date Last Done Comments Anxiety Screening 1960 Diabetes HbA1c 02/10/2024 11/10/2023, 04/16, 11/04/2022, Additional history exists Retinopathy Screening 07/21/2024 07/22/2023 , 10/03/2022, 09/30/2021, Additional history exists Bone Density Screening 08/30/2024 Postp oned from 08/21/2023 (Patient postponement) Imm-Zoster, Recombinant (1 of 2) 08/30/2024 Postponed from 2008 (Patient postponement) Diabetes Foot Exam 11/09/2024 11/10/2023, 0 04/13/2022, 12/26/2021, Additional history exists Lipid Screening 11/09/2024 11/10/2023, 04/16, 11/04/2022, Additional history exists Serum Creatinine 11/09/2024 11/10/2023, , 11/04/2022, Additional history exists Urine Albumin Creatinine Ratio Screening 11/09/2024 11/10/2023, 04/29/2023, 08/06/2022, Additional history exists Medicare Annual Wellness Visit 12/14/2024 12/15/2023, 07/29/2023, 04/11/2022, Additional history exists Falls Prevention 05/30/2025 05/30/2024 Tobacco Screening 05/30/2025 05/30/2024 Dental Examination 06/01/2025 05/30/2024 (M anaged by Outside Provider) Breast Cancer Screening (Mammogram) 11/24/2025 11/25/2023, 03/15/2013 (Declined) Imm-Influenza Discontinued 02/17/2014 (Decl ined), 03/15/2013 (Declined) HIV Screening Completed 10/26/2017, 02/17/2014 Hepatitis C Screening Completed 10/26/2017, 014 Imm-Pneumococcal 65+ Completed 11/04/2022, 03/15/20 13 Alcohol and Drug Screen Completed 04/18/19 25, 04/28/2023, 04/11/2022, Additional history exists Depression Annual Screen Completed 025, 12/19/2014, 10/21/2013 (Declined) [id number] Discontinued Imm-DTaP/Tdap/Td Discontinued Procedures Procedure Name Priority Date/Time Associated Diagnosis Comments REFERRAL SCANNED DOCUMENT 05/16/2024 3:00 AM EST LAB SCANNED DOCUMENT 05/11/2024 3:00 AM EST PROCEDURE SCANNED DOCUMENT 04/28/2024 3:00 AM EST REFERRAL SCANNED DOCUMENT 04/19/2024 3:00 AM EST LAB SCANNED DOCUMENT 04/12/2024 3:00 AM EST REFERRAL SCANNED DOCUMENT 04/07/2024 3:00 AM EST SCREENING MAMMOGRAM BILATERAL Routine 11/25/2023 3:00 AM EDT Encounter for screening mammogram for malignant neoplasm of breast COMPREHENSIVE METABOLIC PANEL Routine 11/10/2023 3:47 PM EDT Left cervical radiculopathy Essential hypertension, benign Hyperlipidemia, mixed Lumbar degenerative disc disease Type 2 diabetes mellitus without complication, without long-term current use of insulin ([facility]) Stage 2 chronic kidney disease Microalbuminuria Hyperuricemia LIPID PANEL Routine 11/10/2023 3:47 PM EDT Left cervical radiculopathy Essential hypertension, benign Hyperlipidemia, mixed Lumbar degenerative disc disease Type 2 diabetes mellitus without complication, without long-term current use of insulin ([facility]) Stage 2 chronic kidney disease Microalbuminuria Hyperuricemia MICROALBUMIN/CREATINI NE RATIO, URINE, RANDOM Routine 11/10/2023 3:47 PM EDT Left cervical radiculopathy Essential hypertension, benign Hyperlipidemia, mixed Lumbar degenerative disc disease Type 2 diabetes mellitus without complication, without long-term current use of insulin ([facility]) Stage 2 chronic kidney disease Microalbuminuria Hyperuricemia HEMOGLOBIN GLYCOSYLATED A1C Routine 11/10/2023 3:47 PM EDT Left cervical radiculopathy Essential hypertension, benign Hyperlipidemia, mixed Lumbar degenerative disc disease Type 2 diabetes mellitus without complication, without long-term current use of insulin ([facility]) Stage 2 chronic kidney disease Microalbuminuria [...] Health Maintenance Results * REFERRAL SCANNED DOCUMENT (05/16/2024 3:00 AM EST) Only the most recent of3 resultswithin the time period is included. 05/16/2024 3:00 AM EST [facility] Roslyn Lewkin PA-C SCAN REFERRAL Final Result * LAB SCANNED DOCUMENT (05/11/2024 3:00 AM EST) Only the most recent of2 resultswithin the time period is included. 05/11/2024 3:00 AM EST us Roslyn Lukin PA-C SCAN LAB Final Result * PROCEDURE SCANNED DOCUMENT (04/28/2024 3:00 AM EST) 04/28/2024 3:00 AM EST [facility] Roslyn Lukin PA-C SCAN PROCEDURES Final Result * SCREENING MAMMOGRAM BILATERAL (11/25/2023 3:00 AM EDT) 11/25/2023 3:0 0 AM EDT Roslyn Lukin PA-C IMG MAMMO Final Result * MICROALBUMIN/CREATININE RATIO, URINE, RANDOM (11/10/2023 3:47 PM EDT) CREATININE, RANDOM URINE 100 20 - 275 mg/dL [facility] [employer] [facility] MICROALBUMIN 0.6 mg/dL [employer] [facility] Comment: Reference Range Not established MICROALBUMIN/CREA TININE RATIO, RANDOM URINE 6 <30 mg/g creat [employer] [facility] Comment: The ADA defines abnormalities in albumin [...] PM EDT 11/10/2023 3:48 PM EDT Narrative Ready - 11/12/2023 8:07 PM EDT FASTING:UNKNOWN PATIENT NOT FASTING; ADVISED TO RETURN FOR COLLECTION. us Roslyn Akins PA-C LAB - NO BLOOD DRAW Final Re sult Performing Organization Address City/[facility]/ZIP Co de Phone Number Ready [address] [place] [phone], [employer] [address] [place] [phone] * (ABNORMAL) HEMOGLOBIN GLYCOSYLATED A1C (11/10/2023 3:47 PM EDT) HEMOGLOBIN A1C 9.3(H) <5.7 % of total Hgb [facility] Comment: For someone without known diabetes, a [...] PM EDT 11/10/2023 3:48 PM EDT Narrative Ready - 11/12/2023 8:07 PM EDT FASTING:UNKNOWN PATIENT NOT FASTING; ADVISED TO RETURN FOR COLLECTION. Roslyn Akins PA-C LAB - BLOOD DRAW Edited Resu lt - Final Performing Organization Address City/[facility]/ZIP Co de Phone Number Ready [address] [address], [employer] [address] [place] [phone] * (ABNORMAL) LIPID PANEL (11/10/2023 3:47 PM EDT) CHOLESTEROL, TOTAL 170 <200 mg/dL [facility] HDL CHOLESTEROL 37(L) > OR = 50 mg/dL [facility] TRIGLYCERIDES 404(H) <150 mg/dL [facility] Comment: If a non-fasting specimen was collected, consider repeat triglyceride testing on a fasting specimen if clinically indicated. Rosanne et al. J. of Clin. Lipidol. 2015;9:129-169. LDL-CHOLESTEROL See Note [employer] Comment: LDL cholesterol not calculated. Triglyceride levels [...] LDL-C. Guanakito BOCANEGRA et al. NOE. 2013;310(19): 7255-4310 (http://education.[employer]/faq/FYK213) CHOL/HDLC RATIO 4.6 <5.0 (calc) [facility] NON-HDL CHOLESTEROL 133(H) <130 mg/dL (calc) [facility] Comment: For patients with diabetes plus 1 major ASCVD risk factor, treating to a non-HDL-C goal of <100 mg/dL (LDL-C of <70 mg/dL) is considered a therapeutic option. Blood Blood / Unknown 11/10/2023 3 :47 PM EDT 11/10/2023 3:48 PM EDT Narrative Ready - 11/12/2023 8:07 PM EDT FASTING:UNKNOWN PATIENT NOT FASTING; ADVISED TO RETURN FOR COLLECTION. us Roslyn Akins PA-C LAB - BLOOD DRAW Final Resul t Ready [address] [address], [facility] [address] [place] [phone] * (ABNORMAL) COMPREHENSIVE METABOLIC PANEL (11/10/2023 3:47 PM EDT) [facility] Signature GLUCOSE 213(H) 65 - 99 mg/dL [employer] [facility] Comment: ?Fasting reference interval For someone without known diabetes, a glucose value >125 mg/dL indicates that they may have diabetes and this should be confirmed with a follow-up test. UREA NITROGEN (BUN) 29(H) 7 - 25 mg/dL [employer] [facility] CREATININE (blood) 1.94(H) 0.50 - 1.05 mg/dL [employer] [facility] EGFR 28(L) > OR = 60 mL/min/1. 73m2 [employer] [facility] BUN/CREATININE RATIO 15 6 - 22 (calc) [employer] [facility] SODIUM 138 135 - 146 mmol/L [employer] [facility] POTASSIUM 4.3 3.5 - 5.3 mmol/L [employer] [facility] CHLORIDE 104 98 - 110 mmol/L [employer] [facility] [employer] [facility] CARBON DIOXIDE 26 20 - 32 mmol/L [employer] [facility] CALCIUM 9.7 8.6 - 10.4 mg/dL [employer] [facility] PROTEIN, TOTAL 6.6 6.1 - 8.1 g/dL [employer] [facility] ALBUMIN 4.3 3.6 - 5.1 g/dL [employer] [facility] GLOBULIN 2.3 1.9 - 3.7 g/dL (calc) [employer] [facility] [employer] [facility] ALBUMIN/GLOBULI N RATIO 1.9 1.0 - 2.5 (calc) [employer] [facility] BILIRUBIN, TOTAL 1.2 0.2 - 1.2 mg/dL [employer] [facility] ALKALINE PHOSPHATASE 120 37 - 153 U/L [employer] [facility] AST 11 10 - 35 U/L [employer] [facility] ALT 17 6 - 29 U/L [employer] [facility] Blood Blood / Unknown 11/10/2023 3 :47 PM EDT 11/10/2023 3:48 PM EDT Narrative [employer] [facility] - 11/12/2023 8:07 PM EDT FASTING:UNKNOWN PATIENT NOT FASTING; ADVISED TO RETURN FOR COLLECTION. us Roslyn Akins PA-C LAB - BLOOD DRAW Edited Resu lt - Final [employer] [facility] [address] [address], [employer] [facility] [address] [phone] * EYE EXAM (07/22/2023 3:00 AM EDT) 07/22/2023 3:00 AM EDT Roslyn Bañuelos SUPERVISOR [place] OTHER Edited Result - Final * HEPATITIS C ANTIBODY (10/26/2017 12:09 PM EDT) Pathologist [facility] HEPATITIS C VIRUS SCREEN NEGATIVE NEGATIVE [facility] Blood specimen (specimen) Blood / Unknown 10/26/2017 12:09 PM EDT 10/26/2017 12:23 PM EDT [facility] - 10/26/2017 4:38 PM EDT [employer] [address] [place] [id number] [place] [id number] ORD# [id number] Roslyn Akins PA-C LAB - BLOOD DRAW Final Resul t [address] [address], [place] [phone] * HIV-1 & HIV-2 ANTIBODIES (10/26/2017 12:09 PM EDT) [facility] HIV 1 AND 2 ANTIBODY SCREEN NEGATIVE NEGATIVE [facility] Comment: This assay is a 4th [...] 12:09 PM EDT 10/26/2017 12:23 PM EDT [facility] - 10/26/2017 4:38 PM EDT [employer] [address] [place] [id number] [place] [id number] ORD# [id number] Roslyn Lukin PA-C LAB - BLOOD DRAW Final Resul t [facility] [address] [place] [address], from Last 3 Months or Most Recently Relevant to Health Maintenance Insurance [employer] - [place] MEDICA[place] Care Teams Billing Typist Relationship Specialty Start Date End Date Roslyn Akins PA-C [address] [place] [phone] PCP - General Internal Medicine 04/26/18
[2024-06-23 11:09] LABS: Anion Gap 12 (12-20); Blood Urea Nitrogen 38 mg/dL (9-16); Calcium 9.4 mg/dL (8.4-10.2); Carbon Dioxide 24 mmol/L (22-29); Chloride 106 mmol/L (96-108); Estimated Glomerular Filt Rate 36; Glucose Random 257 mg/dL (60-115); Potassium 4.4 mmol/L (3.3-5.1); Sodium 138 mmol/L (135-145)
== END 2024-06-23 09:38 | disposition home or self-care (01) ==
LOC: HO.LAB 09:37
PROVIDERS: PCP Physician Assistant; Visit Provider Internal Medicine Hypertension Specialist
DX: N18.30 Chronic kidney disease, stage 3 unspecified (principal)
CPT/HCPCS: 36415; 80048; 81001

== ENCOUNTER 2024-06-30 12:07 | Outpatient (AMB) | payer MEDICARE, MEDICAID, SELFPAY ==
[2024-06-30 12:15] VITALS: BP 98/70; PULSE 57; O2SAT 96; BMI 38.2
--- NOTE | 2024-06-30 12:15 | HO.NEPHOV ---
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 [employer] Supervisor Required: No Accompanied by: Self / Same As Patient Allergies No Known Allergies Allergy (Verified 06/30/24 12:20) Medication List - Last Reconciled 06/30/24 by Abdifatah Estrada MD allopurinol 300 mg PO DAILY aspirin 81 mg PO DAILY atorvastatin 80 mg PO BEDTIME bisoprolol fumarate 2.5 mg PO DAILY calcium carbonate-vitamin D3 500 mg-5 mcg (200 unit) (Oysco 500/D) 1 tab PO DAILY colchicine 0.6 mg PO DAILY dapagliflozin propanediol (Farxiga) 10 mg PO DAILY ezetimibe 10 mg PO DAILY glimepiride 4 mg PO QAM insulin glargine-yfgn units subcut isosorbide mononitrate ER 30 mg PO DAILY semaglutide (Ozempic) mg subcut QWEEK vitamin E mixed units PO Do you need a note to return to daycare/school/sports/work: No HPI Comments Details: Bettina is a pleasant 63-year-old woman referred for CKD. She has had diabetes mellitus for more than 15 years. In 03/04/2024 she had a serum creatinine of 1.6 and EGFR of 30 mL/minute. She was found to have mild hydronephrosis on right kidney and mild fullness of the left pelvis without hydronephrosis. Right kidney measured 10.3 cm left kidney measured 11.1 cm. This was followed by a renal scan which revealed a normal left kidney and significantly less functional contribution from the right kidney. She was seen by Urology and referred for further evaluation. [employer] Tobacco Processing Supervisor service was used. She has been on Ozempic for quite some time. She was lost about 30 lb. Blood pressure has been rather low and she has had episodes of lightheadedness. No history of syncope. No shortness of breath no chest pain no urinary symptoms no fever no rash no edema. No rash no joint pains. 04/19/24 Feels dizzy PFSH Medical History Epigastric pain Hyperuricemia Stage 2 chronic kidney disease Type 2 diabetes mellitus Lumbar degenerative disc disease Hyperlipidemia Hypertension Left cervical radiculopathy Physical Exam Vital Signs: BMI result Body Mass Index 38.2 Comfortable Neck supple no JVD. Lungs entry equal no rales. Heart S1-S2 heard no gallop or rub. Abdomen soft nontender. Neuro alert awake oriented. No asterixis. Extremities no edema. Results Reviewed Nephrology Results: Sodium 138 mmol/L (135-145) 06/23/24 Potassium 4.4 mmol/L (3.3-5.1) 06/23/24 Chloride 106 mmol/L (96-108) 06/23/24 Carbon Dioxide 24 mmol/L (22-29) 06/23/24 BUN 38 mg/dL (9-16) H 06/23/24 Creatinine 1.47 mg/dL (0.5-1.4) H 06/23/24 Calcium 9.4 mg/dL (8.4-10.2) 06/23/24 PTH Intact 131.0 pg/mL (8.7-77.1) H 04/12/24 Urine Protein Negative mg/dL (Neg-Trace) 06/23/24 Assessment & Plan Assessment & Plan (1) CKD (chronic kidney disease) stage 3, GFR 30-59 ml/min: Code(s): N18.30 - Chronic kidney disease, stage 3 unspecified Category: Medical Plan 63-year-old woman with longstanding diabetes mellitus and obesity has CKD 3B. She probably has underlying diabetic kidney disease. Renal ultrasonogram revealed mild hydronephrosis but I doubt if obstructive uropathy is the main contributing factor. Blood pressure has been well controlled. Again, office reading was low today. There could be a component of hypoperfusion. urine protein excretion < 211 mg in 24 hr urine collection ! 24 urine collection creatinine clearance 88 ml/mt with Sr Cr of 1.4. Optimize blood pressure. BP is low despite lowering lisinopril from 20 mg down to 10 mg. Discontinued lisinopril 10 mg daily and BP is still low but asymptomatic Continue to avoid hypotension and avoid nephrotoxic agents. Goal is to slow the progression of renal disease. I have discussed importance of tight control of blood sugar to slow the progression. She is currently on SGLT2 inhibitor and I would continue the same. All questions were answered. Orders: Orders UA and rflx microscopic 4 Months N18.30 - Chronic kidney disease, stage 3 unspecified Total Protein Urine Random 4 Months N18.30 - Chronic kidney disease, stage 3 unspecified Creatinine Urine 4 Months N18.30 - Chronic kidney disease, stage 3 unspecified Basic Metabolic Panel 4 Months N18.30 - Chronic kidney disease, stage 3 unspecified Coding Level of Care Code Est Pt Level 4 (99196) Diagnoses CKD (chronic kidney disease) stage 3, GFR 30-59 ml/min N18.30
--- OUTSIDE RECORDS SUMMARY | 2024-06-30 15:03 | XMS_ITS | Clinical Summary ---
Author Organization [facility] Address [address] [place] [address] Care Team Providers Care Metal Moulder'[employer] Assistant Name Role Phone Roslyn Akins PA-C Primary Care Provider [phone] Source Comments PLEASE NOTE, if this patient [...] complication, without long-term current use of insulin ([facility]) Use qd, dx E11.9 50 Each 04/28/19 24 Active lancets (FREESTYLE LANCETS) 28 gaugeIndications: Type 2 diabetes mellitus without complication, without long-term current use of insulin ([facility]) Freestyle lite lancets, use QD, dx E11.9 50 Each 04/28/19 24 Active blood sugar diagnostic stripsIndications :Type 2 diabetes mellitus without complication, without long-term current use of insulin ([facility]) 1 Each daily. Freestyle lite strips use QD, dx E11.9 50 Each 04/28/19 24 Active blood-glucose meter monitoring kitIndications:Ty pe 2 diabetes mellitus without complication, without long-term current use of insulin ([facility]) 1 Each daily. Freestyle lite meter, disp 1, lifetime need, dx E11.9 1 Each 04/28/19 24 Active dapagliflozin propanediol 10 mg tabIndications:Ty pe 2 diabetes mellitus without complication, without long-term current use of insulin ([facility]) TAKE 1 TABLET BY MOUTH DAILY 90 [...] complication, without long-term current use of insulin ([facility]) TAKE 1 TABLET BY MOUTH ONCE DAILY [...] :Uncontrolled type 2 diabetes mellitus with hyperglycemia ([facility]) TAKE 1 TABLET BY MOUTH EVERY DAY WITH BREAKFAST 90 Tablet 2 01/13/20 24 Active allopurinoL (ZYLOPRIM) 300 mg tabletIndications :Acute idiopathic gout of left foot TAKE 1 TABLET BY MOUTH EVERY DAY WITH LUNCH 90 Tablet 2 01/13/20 24 Active BD JINA 2ND GEN PEN NEEDLE 32 gauge x ndleIndications:U ncontrolled type 2 diabetes mellitus with hyperglycemia ([facility]) USE DIRECTED EVERY DAY 100 Each 04/08/19 25 Active semaglutide (OZEMPIC) 2 mg/dose (8 mg/3 mL) pen injectorIndicatio ns:Type 2 diabetes mellitus without complication, without long-term current use of insulin ([facility]) Inject 2 mg into the skin once a week 6 mL 3 04/18/19 25 Active atorvastatin (LIPITOR) 80 mg tabletIndications :Type 2 diabetes mellitus without complication, without long-term current use of insulin ([facility]),Hyperli pidemia, mixed Take 1 Tablet by mouth nightly at bedtime 90 Tablet 3 05/31/19 25 Active ezetimibe (ZETIA) 10 mg tabletIndications :Type 2 diabetes mellitus without complication, without long-term current use of insulin ([facility]),Hyperli pidemia, mixed TAKE 1 TABLET BY MOUTH DAILY TAKE IN ADDITION TO ATORVASTATIN Active Active Problems Problem Noted Date Diagnosed Date [...] May 09, 2021 10:36 EST Encounter info: [id number], [facility], 05/09/2021 - 05/09/2021 Contributor system: Flybits Echo Complete-Doppler, Colorflow, M-Mode Transthoracic Echocardiography Report (TTE) Patient Demographics Patient Name CINDA, Date of Study 05/09/2021 [facility] Gender Female Facility Race Ethnicity Date of 1960 Height: 62.6 inches Age 60 year(s) Weight: 238.1 pounds Accession Number [id number] BSA: 2.07 m2 Room Number BMI: 42.72 kg/m2 Referring Physician Margie BOB Interpreting Emma Mccurdy MD Physician Journalism Teacher [place] Indications Chest pain. Clinical History [...] mmHg E' Lateral Velocity: 7.9 cm/s E/Med E':17.14785 E/Lat E':12.13514 Cardiac Anatomy Left Ventricle/Interventricular Septum The wall [...] June 29, 2017 10:07 EDT Encounter info: [id number], [facility] [place], 06/29/2017 - 06/29/2017 Contributor system: Flybits Echo Complete This document has an image Echo Complete-Doppler, Colorflow, M-Mode Transthoracic Echocardiography Report (TTE) Patient Demographics Patient Name CINDA, Date of Study 06/29/2017 BETTINA Chaves Gender Female Facility Race Ethnicity Date of 1960 Height: 63 inches Age 56 year(s) Weight: 245.01 pounds Accession Number [id number] BSA: 2.11 m2 Room Number BMI: 43.4 kg/m2 Referring Physician Margie Humphrey MD Physician Journalism Teacher Portia Sandoval [facility] Indications Chest pain. Clinical History Hypertension. Diabetes [...] mmHg E' Lateral Velocity: 8.68 cm/s E/Med E':15.23958 E/Lat E':8.03774 Cardiac Anatomy Left Ventricle/Interventricular Septum The left [...] complication, without long-term current use of insulin ([facility]) 03/15/2013 Overview (05/30/2015): Opthal exam 04/2015 Dr. Narvaez [facility], no retinopathy Non morbid obesity 03/15/2013 Hyperlipidemia, mixed 03/15/2013 Lumbar degenerative disc disease 03/15/2013 Knee osteoarthritis 03/15/2013 Hyperuricemia 03/15/2013 Renal cyst, right 01/2013 ultrasound 03/15/2013 Encounters Date Type Department Care Team Description 05/30/2024 9:40 AM EDT Telemedicine Visit [address] [phone] Roslyn Akins PA-C Essential hypertension, benign (Primary Dx); Type 2 diabetes mellitus without complication, without long-term current use of insulin ([facility]); Non morbid obesity; Hyperlipidemia, mixed; Ingrown toenail of right foot 04/18/2024 11:00 AM EST Telemedicine Visit [address] [phone] Roslyn Akins PA-C Essential hypertension, benign (Primary Dx); Type 2 diabetes mellitus without complication, without long-term current use of insulin ([facility]); Non morbid obesity; Hyperlipidemia, mixed from Last [...] Annual Screen Completed 025, 12/19/2014, 10/21/2013 (Declined) [id number] Discontinued Imm-DTaP/Tdap/Td Discontinued Procedures Procedure Name Priority Date/Time Associated Diagnosis Comments LAB SCANNED DOCUMENT 06/23/2024 3:00 AM EDT REFERRAL SCANNED DOCUMENT 05/16/2024 3:00 AM EST [...] complication, without long-term current use of insulin ([facility]) Stage 2 chronic kidney disease Microalbuminuria Hyperuricemia LIPID PANEL Routine 11/10/2023 3:47 PM EDT Left cervical radiculopathy Essential hypertension, benign Hyperlipidemia, mixed Lumbar degenerative disc disease Type 2 diabetes mellitus without complication, without long-term current use of insulin ([facility]) Stage 2 chronic kidney disease Microalbuminuria Hyperuricemia MICROALBUMIN/CREATINI NE RATIO, URINE, RANDOM Routine 11/10/2023 3:47 PM EDT Left cervical radiculopathy Essential hypertension, benign Hyperlipidemia, mixed Lumbar degenerative disc disease Type 2 diabetes mellitus without complication, without long-term current use of insulin ([facility]) Stage 2 chronic kidney disease Microalbuminuria Hyperuricemia HEMOGLOBIN GLYCOSYLATED A1C Routine 11/10/2023 3:47 PM EDT Left cervical radiculopathy Essential hypertension, benign Hyperlipidemia, mixed Lumbar degenerative disc disease Type 2 diabetes mellitus without complication, without long-term current use of insulin ([facility]) Stage 2 chronic kidney disease Microalbuminuria [...] Health Maintenance Results * LAB SCANNED DOCUMENT (06/23/2024 3:00 AM EDT) Only the most recent of3 resultswithin the time period is included. 06/23/2024 3:00 AM EDT Roslyn Akins PA-C SCAN LAB Final Result * REFERRAL SCANNED DOCUMENT (05/16/2024 3:00 AM EST) Only the most recent of3 resultswithin the time period is included. 05/16/2024 3:00 AM EST Roslyn Akins PA-C SCAN REFERRAL Final Result * PROCEDURE SCANNED DOCUMENT (04/28/2024 3:00 AM EST) 04/28/2024 3:00 AM EST Roslyn Akins PA-C SCAN PROCEDURES Final Result * SCREENING MAMMOGRAM BILATERAL (11/25/2023 3:00 AM EDT) 11/25/2023 3:00 AM EDT Roslyn BOB-C IMG MAMMO Final Result * MICROALBUMIN/CREATININE RATIO, URINE, RANDOM (11/10/2023 3:47 PM EDT) Pathologist [facility] CREATININE, RANDOM URINE 100 20 - 275 mg/dL [facility] MICROALBUMIN 0.6 mg/dL [facility] Comment: Reference Range Not established MICROALBUMIN/CREA TININE RATIO, RANDOM URINE 6 <30 mg/g creat [facility] Comment: The ADA defines abnormalities in albumin [...] PM EDT 11/10/2023 3:48 PM EDT Narrative [facility] - 11/12/2023 8:07 PM EDT FASTING:UNKNOWN PATIENT NOT FASTING; ADVISED TO RETURN FOR COLLECTION. Roslyn BOB-C LAB - NO BLOOD DRAW Final Re sult [facility] [address] [address], [employer] [address] [place] [phone] * (ABNORMAL) HEMOGLOBIN GLYCOSYLATED A1C (11/10/2023 3:47 PM EDT) HEMOGLOBIN A1C 9.3(H) <5.7 % of total Hgb [facility] Comment: For someone without known diabetes, a [...] PM EDT 11/10/2023 3:48 PM EDT Narrative [facility] - 11/12/2023 8:07 PM EDT FASTING:UNKNOWN PATIENT NOT FASTING; ADVISED TO RETURN FOR COLLECTION. Roslyn Akins PA-C LAB - BLOOD DRAW Edited Resu lt - Final Performing Organization Address [facility]/State/ZIP Co de Phone Number [facility] [address] [address], [employer] [address] [place] [phone] * (ABNORMAL) LIPID PANEL (11/10/2023 3:47 PM EDT) CHOLESTEROL, TOTAL 170 <200 mg/dL [facility] HDL CHOLESTEROL 37(L) > OR = 50 mg/dL [facility] TRIGLYCERIDES 404(H) <150 mg/dL [employer] Comment: If a non-fasting specimen was collected, consider repeat triglyceride testing on a fasting specimen if clinically indicated. Rosanne et al. J. of Clin. Lipidol. 2015;9:129-169. LDL-CHOLESTEROL See Note QUES [facility] Comment: LDL cholesterol not calculated. Triglyceride levels [...] LDL-C. Guanakito BOCANEGRA et al. NOE. 2013;310(19): 5014-4207 (http://education.two.42.solutions/faq/IAE972) CHOL/HDLC RATIO 4.6 <5.0 (calc) [facility] NON-HDL CHOLESTEROL 133(H) <130 mg/dL (calc) [employer] [employer] Comment: For patients with diabetes plus 1 major ASCVD risk factor, treating to a non-HDL-C goal of <100 mg/dL (LDL-C of <70 mg/dL) is considered a therapeutic option. Blood Blood / Unknown 11/10/2023 3 :47 PM EDT 11/10/2023 3:48 PM EDT Narrative [facility] - 11/12/2023 8:07 PM EDT FASTING:UNKNOWN PATIENT NOT FASTING; ADVISED TO RETURN FOR COLLECTION. Roslyn Akins PA-C LAB - BLOOD DRAW Final Resul t [facility] [address] [place] [id number], [employer] [address] [place] [phone] * (ABNORMAL) COMPREHENSIVE METABOLIC PANEL (11/10/2023 3:47 PM EDT) GLUCOSE 213(H) 65 - 99 mg/dL [facility] Comment: ?Fasting reference interval For someone without known diabetes, a glucose value >125 mg/dL indicates that they may have diabetes and this should be confirmed with a follow-up test. UREA NITROGEN (BUN) 29(H) 7 - 25 mg/dL [facility] CREATININE (blood) 1.94(H) 0.50 - 1.05 mg/dL [employer] EGFR 28(L) > OR = 60 mL/min/1. 73m2 [facility] BUN/CREATININE RATIO 15 6 - 22 (calc) [facility] SODIUM 138 135 - 146 mmol/L [facility] POTASSIUM 4.3 3.5 - 5.3 mmol/L [facility] CHLORIDE 104 98 - 110 mmol/L [facility] CARBON DIOXIDE 26 20 - 32 mmol/L [facility] CALCIUM 9.7 8.6 - 10.4 mg/dL [facility] PROTEIN, TOTAL 6.6 6.1 - 8.1 g/dL [facility] ALBUMIN 4.3 3.6 - 5.1 g/dL [facility] GLOBULIN 2.3 1.9 - 3.7 g/dL (calc) [facility] ALBUMIN/GLOBULI N RATIO 1.9 1.0 - 2.5 (calc) [facility] BILIRUBIN, TOTAL 1.2 0.2 - 1.2 mg/dL [facility] ALKALINE PHOSPHATASE 120 37 - 153 U/L [facility] AST 11 10 - 35 U/L [facility] ALT 17 6 - 29 U/L [facility] Blood Blood / Unknown 11/10/2023 3 :47 PM EDT 11/10/2023 3:48 PM EDT Narrative [facility] - 11/12/2023 8:07 PM EDT FASTING:UNKNOWN PATIENT NOT FASTING; ADVISED TO RETURN FOR COLLECTION. Roslyn Akins PA-C LAB - BLOOD DRAW Edited Resu lt - Final [facility] [address] [address], [facility] [address] [phone] * EYE EXAM (07/22/2023 3:00 AM EDT) 07/22/2023 3:00 AM EDT Roslyn Bañuelos BROOM STITCHER OTHER Edited Result - Final * HEPATITIS C ANTIBODY (10/26/2017 12:09 PM EDT) HEPATITIS C VIRUS SCREEN NEGATIVE NEGATIVE [facility] Blood specimen (specimen) Blood / Unknown 10/26/2017 12:09 PM EDT 10/26/2017 12:23 PM EDT [facility] - 10/26/2017 4:38 PM EDT [employer] [address] [place] [address] [place] [id number] ORD# [id number] Roslyn Akins PA-C LAB - BLOOD DRAW Final Resul t Performing Organization Address City/[facility]/ZIP Co de Phone Number [address] [address], [place] [phone] * HIV-1 & HIV-2 ANTIBODIES (10/26/2017 12:09 PM EDT) [facility] HIV 1 AND 2 ANTIBODY SCREEN NEGATIVE NEGATIVE [facility] Comment: This assay is a [...] 12:09 PM EDT 10/26/2017 12:23 PM EDT [facility] - 10/26/2017 4:38 PM EDT [employer] [address] [place] [address] [place] [id number] ORD# [id number] Roslyn Akins PA-C LAB - BLOOD DRAW Final Resul t Performing Organization Address City/[facility]/ZIP Co de Phone Number [address] [address], [place] [phone] from Last 3 Months or Most Recently Relevant to Health Maintenance Insurance [employer] [place] Care Teams [employer]oulder[employer] Assistant Relationship Specialty Start Date End Date Roslyn Akins PA-C [address] [place] [phone] PCP - General Internal Medicine 04/26/18
== END 2024-06-30 12:27 | disposition home or self-care (01) ==
LOC: HO.HKA 12:10
PROVIDERS: PCP Physician Assistant; Visit Provider Internal Medicine Hypertension Specialist
DX: N18.30 Chronic kidney disease, stage 3 unspecified (principal)
CPT/HCPCS: 99214

== ENCOUNTER → 2024-06-30 12:07 | Outpatient (BNVA) | payer MEDICARE, MEDICAID, SELFPAY | PROVIDERS: PCP Physician Assistant; Visit Provider Internal Medicine Hypertension Specialist | DX: N18.30 Chronic kidney disease, stage 3 unspecified (principal) | CPT/HCPCS: 99212 ==

== ENCOUNTER → 2024-09-13 10:47 | Outpatient (REF) | payer MEDICARE, MEDICAID, SELFPAY ==
--- NOTE | ~2024-09-13 | NM_ITS ---
EXAMINATION: NM KIDNEY FLOW FUNCTION WITH RX HISTORY: N13.30 - Unspecified hydronephrosis. TECHNIQUE: A renogram and renal scan were performed following the intravenous administration of 10 mCi technetium 99m-DTPA. The patient received 40 mg IV Lasix approximately 30 minutes after injection of the radiopharmaceutical. COMPARISON: Comparison is made with the prior examination dated 03/03/2024. Correlation is also made with a renal ultrasound dated 12/09/2023. FINDINGS: There is blood flow to both kidneys. The right kidney is again seen to be smaller than the left. The split function is approximately 69.7% on the left and 30.3% on the right, which is similar to the prior study. Again seen is dilatation of the right renal pelvis. After the administration of intravenous Lasix, there is clearance of activity from both collecting systems. The appearance is not significantly changed from the prior examination, and is consistent with a dilated atonic right-sided collecting system rather than obstruction. 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 Findings are similar in appearance to the prior study. Electronically signed by: Tay Bernal MD 09/13/2024 02:20 PM EDT
--- OUTSIDE RECORDS SUMMARY | 2024-09-13 12:00 | XMS_ITS | Clinical Summary ---
Author Organization [facility] Address [address] [place] [address] Care Team Providers Care Chaplain Name Role Phone Roslyn Akins PA-C Primary Care Provider [phone] Source Comments PLEASE NOTE, if this patient [...] complication, without long-term current use of insulin ([facility]) Use qd, dx E11.9 50 Each 04/28/19 24 Active lancets (FREESTYLE LANCETS) 28 gaugeIndications: Type 2 diabetes mellitus without complication, without long-term current use of insulin (CMS & HHS-HCC) Freestyle lite lancets, use QD, dx E11.9 50 Each 04/28/19 24 Active blood sugar diagnostic stripsIndications :Type 2 diabetes mellitus without complication, without long-term current use of insulin ([facility]) 1 Each daily. Freestyle lite strips use QD, dx E11.9 50 Each 04/28/19 24 Active blood-glucose meter monitoring kitIndications:Ty pe 2 diabetes mellitus without complication, without long-term current use of insulin ([facility]) 1 Each daily. Freestyle lite meter, disp 1, lifetime need, dx E11.9 1 Each 04/28/19 24 Active diclofenac sodium (VOLTAREN) 1 % [...] daily 60 g 3 07/29/19 [address] aspirin [address] tabletIndications :Type 2 diabetes mellitus without complication, without long-term current use of insulin ([facility]) TAKE 1 TABLET BY MOUTH ONCE DAILY 90 Tablet 1 10/19/19 24 Active lisinopriL 20 mg tabletIndications [...] :Uncontrolled type 2 diabetes mellitus with hyperglycemia ([facility]) TAKE 1 TABLET BY MOUTH EVERY DAY WITH BREAKFAST 90 Tablet 2 01/13/20 24 Active allopurinoL (ZYLOPRIM) 300 mg tabletIndications :Acute idiopathic gout of left foot TAKE 1 TABLET BY MOUTH EVERY DAY WITH LUNCH 90 Tablet 2 01/13/20 24 Active semaglutide (OZEMPIC) 2 mg/dose (8 mg/3 mL) pen injectorIndicatio ns:Type 2 diabetes mellitus without complication, without long-term current use of insulin ([facility]) Inject 2 mg into the skin once a week 6 mL 3 04/18/19 25 Active atorvastatin (LIPITOR) 80 mg tabletIndications :Type 2 diabetes mellitus without complication, without long-term current use of insulin ([facility]),Hyperlip idemia, mixed Take 1 Tablet by mouth nightly at bedtime 90 Tablet 3 05/31/19 25 Active ezetimibe (ZETIA) 10 mg tabletIndications :Type 2 diabetes mellitus without complication, without long-term current use of insulin ([facility]),Hyperlip idemia, mixed TAKE 1 TABLET BY MOUTH DAILY TAKE IN ADDITION TO ATORVASTATIN Active OYSCO 500/D 500 mg-5 mcg (200 unit) per tabletIndications :Non morbid obesity TAKE 1 TABLET BY MOUTH EVERY DAY 90 Tablet 2 07/07/19 25 Active bisoprolol (ZEBETA) 5 mg tablet TAKE 1 TABLET BY MOUTH EVERY DAY 90 Tablet 2 07/07/19 25 Active BD JINA 2ND GEN PEN NEEDLE 32 gauge x ndleIndications:U ncontrolled type 2 diabetes mellitus with hyperglycemia ([facility]) USE DIRECTED TO TEST BLOOD SUGAR 100 Each 07/07/19 25 Active isosorbide mononitrate ER (IMDUR) 30 mg 24 hr tabletIndications :Essential hypertension, benign TAKE 1 TABLET BY MOUTH EVERY MORNING 90 Tablet 2 07/07/19 25 Active FARXIGA 10 mg tabIndications:Ty pe 2 diabetes mellitus without complication, without long-term current use of insulin ([facility]) TAKE 1 TABLET BY MOUTH DAILY 90 Tablet 2 07/16/19 25 Active Active Problems Problem Noted Date Diagnosed [...] May 09, 2021 10:36 EST Encounter info: [id number][place] [facility] [place]09[place]21 - 05/09/2021 Contributor system: TYFFON Echo Complete-Doppler, Colorflow, M-Mode Transthoracic Echocardiography Report (TTE) Patient Demographics Patient Name KAREN, Date of Study 05/09/2021 [facility] Facility Race Ethnicity Date of 1960 Height: 62.6 inches Age 60 year(s) Weight: 238.1 pounds Accession Number [id number] BSA: 2.07 m2 Room Number BMI: 42.72 kg/m2 Referring Physician Margie BOB Interpreting Emma Mccurdy MD Physician Resident Program Specialist [place] Indications Chest pain. Clinical History [...] mmHg E' Lateral Velocity: 7.9 cm/s E/Med E':17.34590 E/Lat E':12.72406 Cardiac Anatomy Left Ventricle/Interventricular Septum The wall [...] June 29, 2017 10:07 EDT Encounter info: [id number], [facility] [place] [facility], 06/29/2017 - 06/29/2017 Contributor system: SOFTMED Echo Complete This document has an image Echo Complete-Doppler, Colorflow, M-Mode Transthoracic Echocardiography Report (TTE) Patient Demographics Patient Name KAREN, Date of Study 06/29/2017 BETTINA Chaves Gender Female Facility Race Ethnicity Date of 1960 Height: 63 inches Age 56 year(s) Weight: 245.01 pounds Accession Number [id number] BSA: 2.11 m2 Room Number BMI: 43.4 kg/m2 Referring Physician Margie BOB Interpreting Sue Humphrey MD Physician Resident Program Specialist Portia Sandoval [facility] Indications Chest pain. Clinical History Hypertension. Diabetes [...] mmHg E' Lateral Velocity: 8.68 cm/s E/Med E':15.17386 E/Lat E':8.72005 Cardiac Anatomy Left Ventricle/Interventricular Septum The left [...] complication, without long-term current use of insulin ([facility]) 03/15/2013 Overview (05/30/2015): Opthal exam 04/2015 Dr. Narvaez @ [facility], no retinopathy Non morbid obesity 03/15/2013 Hyperlipidemia, mixed 03/15/2013 Lumbar degenerative disc disease 03/15/2013 Knee osteoarthritis 03/15/2013 Hyperuricemia 03/15/2013 Renal cyst, right 01/2013 ultrasound 03/15/2013 Immunizations Immunization Administration Dates Next Due PNEUMOCOCCAL CONJUGATE PCV 20 (Prevnar) 11/05/19 23 PNEUMOCOCCAL POLYSACCHARIDE PPV23 (Pneumovax 23) 03/15/2013 Social History Tobacco Use Types Packs/Day [...] 60 12/15/2023 1:12 PM EDT Temperature 36.7 C (98 F) 12/15/2023 1:12 PM EDT Respiratory Rate 16 12/15/2023 1:12 PM EDT Oxygen Saturation 97% 12/15/2023 1:12 PM EDT Inhaled Oxygen Concentration - - Weight 93.4 kg (206 lb) 12/15/2023 1:12 PM EDT Height 157.5 cm (5' 2 ) 11/10/2023 2:48 PM EDT Body Mass Index 37.68 11/10/2023 2:48 PM EDT Plan of Treatment Health Maintenance Due Date Last Done Comments Medicare Annual Wellness Visit 1976 Imm-Zoster, Recombinant (1 of 2) 2008 Bone Density Screening 08/21/2023 Hemoglobin A1c 02/10/2024 11/10/2023, 04/16, 11/04/2022, Additional history exists Diabetes Foot Exam 11/09/2024 11/10/2023, 0 04/13/2022, 12/26/2021, Additional history exists Lipid Screening 11/09/2024 11/10/2023, 04/16, 11/04/2022, Additional history exists Serum Creatinine 11/09/2024 11/10/2023, , 11/04/2022, Additional history exists Urine Albumin Creatinine Rat io Screening 11/09/2024 11/10/2023, 04/29/2023, 08/06/2022, Additional history exists Falls Prevention 05/30/2025 05/30/2024 Tobacco Screening 05/30/2025 05/30/2024 Dental Examination 06/01/2025 05/30/2024 (M anaged by Outside Provider) Retinopathy Screening 08/03/2025 08/03/2024 , 07/22/2023, 10/03/2022, Additional history exists Breast Cancer Screening (Mammogram) 11/24/2025 11/25/2023, 03/15/2013 (Declined) Imm-Influenza Discontinued 02/17/2014 (Decl ined), 03/15/2013 (Declined) Hepatitis C Screening Completed 10/26/2017, 014 Imm-Pneumococcal 50+ Completed 11/04/2022, 03/15/20 13 Alcohol and Drug Screen Completed 04/18/19, 04/28/2023, 04/11/2022, Additional history exists Depression Annual Screen Completed 025, 12/19/2014, 10/21/2013 (Declined) [id number] Discontinued Imm-DTaP/Tdap/Td Discontinued Procedures Procedure Name Priority Date/Time Associated Diagnosis Comments UPHOLSTERED GOODS CRAFTER REPORT 3:00 AM EDT REFERRAL SCANNED DOCUMENT 06/30/2024 3:00 AM EDT LAB SCANNED DOCUMENT 06/23/2024 3:00 AM EDT SCREENING MAMMOGRAM BILATERAL Routine 11/25/2023 3:00 AM EDT Encounter for screening mammogram for malignant neoplasm of breast COMPREHENSIVE METABOLIC PANEL Routine 11/10/2023 3:47 PM EDT Left cervical radiculopathy Essential hypertension, benign Hyperlipidemia, mixed Lumbar degenerative disc disease Type 2 diabetes mellitus without complication, without long-term current use of insulin ([facility]) Stage 2 chronic kidney disease Microalbuminuria Hyperuricemia LIPID PANEL Routine 11/10/2023 3:47 PM EDT Left cervical radiculopathy Essential hypertension, benign Hyperlipidemia, mixed Lumbar degenerative disc disease Type 2 diabetes mellitus without complication, without long-term current use of insulin ([facility]) Stage 2 chronic kidney disease Microalbuminuria Hyperuricemia MICROALBUMIN/CREATININE RATIO, URINE, RANDOM Routine 11/10/2023 3:47 PM EDT Left cervical radiculopathy Essential hypertension, benign Hyperlipidemia, mixed Lumbar degenerative disc disease Type 2 diabetes mellitus without complication, without long-term current use of insulin ([facility]) Stage 2 chronic kidney disease Microalbuminuria Hyperuricemia HEMOGLOBIN GLYCOSYLATED A1C Routine 11/10/2023 3:47 PM EDT Left cervical radiculopathy Essential hypertension, benign Hyperlipidemia, mixed Lumbar degenerative disc disease Type 2 diabetes mellitus without complication, without long-term current use of insulin ([facility]) Stage 2 chronic kidney disease Microalbuminuria Hyperuricemia HEPATITIS C ANTIBODY Routine 10/26/2017 12:09 PM EDT Uncontrolled type 2 diabetes mellitus without complication, without long-term current use of insulin ([facility]) from Last 3 Months or Most Recently Relevant to Health Maintenance Results * UPHOLSTERED GOODS CRAFTER REPORT (08/03/2024 3:00 AM EDT) 08/03/2024 3:00 AM EDT us oRslyn Lewkin PA-C SCAN PROCEDURES Final Result * REFERRAL SCANNED DOCUMENT (06/30/2024 3:00 AM EDT) 06/30/2024 3:00 AM EDT us Roslyn Lewkin PA-C SCAN REFERRAL Final Result * LAB SCANNED DOCUMENT (06/23/2024 3:00 AM EDT) 06/23/2024 3:00 AM EDT Roslyn Lukin PA-C SCAN LAB Final Result * SCREENING MAMMOGRAM BILATERAL (11/25/2023 3:00 AM EDT) 11/25/2023 3:00 AM EDT Roslyn Akins PA-C IMG MAMMO Final Result * MICROALBUMIN/CREATININE RATIO, URINE, RANDOM (11/10/2023 3:47 PM EDT) Pathologist [facility] CREATININE, RANDOM URINE 100 20 - 275 mg/dL [facility] MICROALBUMIN 0.6 mg/dL [facility] Comment: Reference Range Not established MICROALBUMIN/CREA TININE RATIO, RANDOM URINE 6 <30 mg/g creat [facility] Comment: The ADA defines abnormalities in albumin excretion as follows: Albuminuria Category Result (mg/g creatinine) Normal to Mildly increased <30 Moderately increased 30-299 Severely increased > OR = 300 The ADA recommends that at least two of three specimens collected within a 3-6 month period be abnormal before considering a patient to be within a diagnostic category. Urine Urine specimen / Unknown 11/10/2023 3:47 PM EDT 11/10/2023 3:48 PM EDT Narrative [facility] - 11/12/2023 8:07 PM EDT FASTING:UNKNOWN PATIENT NOT FASTING; ADVISED TO RETURN FOR COLLECTION. us Roslyn Akins PA-C LAB URINE AMBULATORY Final R esult Performing Organization Address [facility]/ZIP Co de Phone Number [facility] [address] [address], [facility] [address] [address] * (ABNORMAL) HEMOGLOBIN GLYCOSYLATED A1C (11/10/2023 3:47 PM EDT) HEMOGLOBIN A1C 9.3(H) <5.7 % of total Hgb [facility] Comment: For someone without known diabetes, a [...] A1c for diagnosis of diabetes for children. Blood Blood / Unknown 11/10/2023 3 :47 PM EDT 11/10/2023 3:48 PM EDT Narrative [facility] - 11/12/2023 8:07 PM EDT FASTING:UNKNOWN PATIENT NOT FASTING; ADVISED TO RETURN FOR COLLECTION. us Roslyn Akins PA-C LAB - BLOOD DRAW Edited Resu lt - Final [facility] [address] [address], [facility] [address] [address] * (ABNORMAL) LIPID PANEL (11/10/2023 3:47 PM EDT) CHOLESTEROL, TOTAL 170 <200 mg/dL [facility] HDL CHOLESTEROL 37(L) > OR = 50 mg/dL [facility] TRIGLYCERIDES 404(H) <150 mg/dL [facility] Comment: If a non-fasting specimen was collected, consider repeat triglyceride testing on a fasting specimen if clinically indicated. Rosanne et al. J. of Clin. Lipidol. 2015;9:129-169. LDL-CHOLESTEROL See Note [facility] Comment: LDL cholesterol not calculated. Triglyceride levels greater than 400 mg/dL invalidate calculated LDL results. Reference range: <100 Desirable range <100 mg/dL for primary prevention; <70 mg/dL for patients with CHD or diabetic patients with > or = 2 CHD risk factors. LDL-C is now calculated using the Sondra calculation, which is a validated novel method providing better accuracy than the Friedewald equation in the estimation of LDL-C. Guanakito SS et al. NOE. 2013;310(19): 7351-3227 (http://education.[employer]/faq/GSD313) CHOL/HDLC RATIO 4.6 <5.0 (calc) [facility] NON-HDL CHOLESTEROL 133(H) <130 mg/dL (calc) [facility] Comment: For patients with diabetes plus 1 major ASCVD risk factor, treating to a non-HDL-C goal of <100 mg/dL (LDL-C of <70 mg/dL) is considered a therapeutic option. Blood Blood / Unknown 11/10/2023 3 :47 PM EDT 11/10/2023 3:48 PM EDT Narrative [facility] - 11/12/2023 8:07 PM EDT FASTING:UNKNOWN PATIENT NOT FASTING; ADVISED TO RETURN FOR COLLECTION. us Roslyn Akins PA-C LAB - BLOOD DRAW Final Resul t [facility] [address] [address], [facility] [address] [place] [phone] * (ABNORMAL) COMPREHENSIVE METABOLIC PANEL (11/10/2023 3:47 PM EDT) GLUCOSE 213(H) 65 - 99 mg/dL [facility] Comment: Fasting reference interval For someone without known diabetes, a glucose value >125 mg/dL indicates that they may have diabetes and this should be confirmed with a follow-up test. UREA NITROGEN (BUN) 29(H) 7 - 25 mg/dL [facility] CREATININE (blood) 1.94(H) 0.50 - 1.05 mg/dL [facility] EGFR 28(L) > OR = 60 mL/min/1. 73m2 [facility] BUN/CREATININE RATIO 15 6 - 22 (calc) [facility] SODIUM 138 135 - 146 mmol/L [facility] POTASSIUM 4.3 3.5 - 5.3 mmol/L [facility] CHLORIDE 104 98 - 110 mmol/L [facility] CARBON DIOXIDE 26 20 - 32 mmol/L [facility] CALCIUM 9.7 8.6 - 10.4 mg/dL [facility] PROTEIN, TOTAL 6.6 6.1 - 8.1 g/dL [facility] ALBUMIN 4.3 3.6 - 5.1 g/dL [facility] GLOBULIN 2.3 1.9 - 3.7 g/dL (calc) [facility] ALBUMIN/GLOBULI N RATIO 1.9 1.0 - 2.5 (calc) [facility] BILIRUBIN, TOTAL 1.2 0.2 - 1.2 mg/dL [facility] ALKALINE PHOSPHATASE 120 37 - 153 U/L [facility] AST 11 10 - 35 U/L [facility] ALT 17 6 - 29 U/L [facility] Blood Blood / Unknown 11/10/2023 3 :47 PM EDT 11/10/2023 3:48 PM EDT Narrative [facility] - 11/12/2023 8:07 PM EDT FASTING:UNKNOWN PATIENT NOT FASTING; ADVISED TO RETURN FOR COLLECTION. us Roslyn Akins PA-C LAB - BLOOD DRAW Edited Resu lt - Final [facility] [address] [address], [facility] [address] [address] * HEPATITIS C ANTIBODY (10/26/2017 12:09 PM EDT) Pathologist [facility] HEPATITIS C VIRUS SCREEN NEGATIVE NEGATIVE [facility] Blood specimen (specimen) Blood / Unknown 10/26/2017 12:09 PM EDT 10/26/2017 12:23 PM EDT Narrative [facility] - 10/26/2017 4:38 PM EDT [facility] [address] [place] [address] [place] [id number] ORD# [id number] us Roslyn Akins PA-C LAB - BLOOD DRAW Final Resul t [facility] [address] [place] [address], [place] [phone] from Last 3 Months or Most Recently Relevant to Health Maintenance Insurance [employer] MEDIC[place] - [place] MEDICA[place] Care Teams Chaplain Relationship Specialty Start Date End Date Roslyn Akins PA-C [address] [place] [phone] PCP - General Internal Medicine 04/26/18
--- OUTSIDE RECORDS SUMMARY | 2024-09-13 12:00 | XMS_ITS | Clinical Summary ---
Author Organization [address] [facility] Address [address] [place] [address] Phone Care Team Providers Care Fire Equipment Inspector Name Role Phone Roslyn Akins Primary Care Provider [phone] Social History Tobacco Use Types Packs/Day Years Used Date Smoking Tobacco: Never Assessed Comments Unknown Sex and Gender Information Value Date Recorded Sex Assigned at Not on file Legal Sex Female 11:38 AM EST Gender Identity Not on file Sexual Orientation Not on file Last Filed Vital Signs Vital Sign Reading Time Taken Comments Blood Pressure 122/78 06/12/2021 2:22 PM EDT Sit ting L Arm Pulse 76 06/12/2021 2:22 PM EDT Temperature - - Respiratory Rate - - Oxygen Saturation - - Inhaled Oxygen Concentration - - Weight 101 kg (222 lb) 06/12/2021 2:22 PM EDT Height 160 cm (5' 3 ) 06/12/2021 2:22 PM EDT Body Mass Index 39.33 06/12/2021 2:22 PM EDT Plan of Treatment Upcoming Encounters Date Type Department Care Team ([facility] Contact Info) Description 10/13/2024 9:30 AM EDT Consult Orthopedic Surgery - [place] [address] [phone] Randell King, DPM [address] [address] Health Maintenance Due Date Last Done Comments Breast Cancer Screening 1960 DTaP,Tdap,and Td Vaccines (1 - Tdap) 1977 Pneumococcal Vaccine: 50+ Ye ars (1 of 1 - PCV) 2008 Zoster Vaccines (1 of 2) 2008 Colorectal Cancer Screening: Colonoscopy 02/11/2022 Depression Screening 02/11/2022 Hepatitis C Screening 02/11/2022 Medicare Annual Wellness Visit 02/11/2022 Osteoporosis Screening (Bone Density Screening) 02/11/2022 Social Influencers of Health Screening 02/11/2022 Falls Risk Assessment 08/21/2023 COVID-19 Vaccine ( - 2023-2 5 season) 2023 Influenza Vaccine (Season Ended) 2024 RSV Immunization Adult Patie nts (1 - 1-dose 75+ series) 2033 HIB Vaccines Aged Out No longer eligi ble based on patient's age to complete this topic HPV Vaccines Aged Out No longer eligi ble based on patient's age to complete this topic Hepatitis A Vaccines Aged Out No long er eligible based on patient's age to complete this topic Hepatitis B Vaccines Aged Out No long er eligible based on patient's age to complete this topic IPV Vaccines Aged Out No longer eligi ble based on patient's age to complete this topic MMR Vaccines Aged Out No longer eligi ble based on patient's age to complete this topic Meningococcal ACWY Vaccine Aged Out N o longer eligible based on patient's age to complete this topic Meningococcal B Vaccine Aged Out No l onger eligible based on patient's age to complete this topic RSV Immunization Patients Un jayla 20 months Aged Out No longer eligible b ased on patient's age to complete this topic Varicella Vaccines Aged Out No longer eligible based on patient's age to complete this topic Insurance MEDICARE MEDICAID - [place] Care Teams Fire Equipment Inspector Relationship Specialty Start Date End Date Roslyn Akins PA [address] [place] [address] PCP - General Internal Medicine 03/12/21
== END ==
LOC: HO.NUCMED 10:47
PROVIDERS: PCP Physician Assistant; Visit Provider Urology
DX: N26.1 Atrophy of kidney (terminal) (principal); N13.30 Unspecified hydronephrosis
CPT/HCPCS: 78708; A9539; J1938

== ENCOUNTER → 2024-09-13 10:49 | Outpatient (BNV) | payer MEDICARE, MEDICAID, SELFPAY | PROVIDERS: PCP Physician Assistant; Visit Provider Radiology Diagnostic Radiology | DX: N13.30 Unspecified hydronephrosis (principal) | CPT/HCPCS: 78708 ==

== ENCOUNTER 2024-09-20 10:21 | Outpatient (AMB) | payer MEDICARE, MEDICAID, SELFPAY ==
--- OUTSIDE RECORDS SUMMARY | 2024-09-16 23:59 | XMS_ITS | Continuity of Care Document ---
Author Organization [facility] Address [address] [place] [address]- Care Team Providers Care Insurance Adjustor Name Role Phone Roslyn Bell Primary Care Physician Encounter [facility] Date(s): 08/17/24 - 09/16/24 [facility] [address] [place] [id number] Attending Physician: Nona Elaine Admitting Physician: Nona Elaine Referring Physician: Nona Elaine Referring Physician: Trini Zheng Encounter Type: Triage Allergies, Adverse Reactions, Alerts No Known Allergies Medications alirocumab 150 mg/mL subcutaneous solution = 150 mg, Subcutaneous Infusion, Every 14 days, # 2 each, 5 Refills, Maintenance, 08/04/24 9:09:00 AM EDT, [id number], Partial fill upon patient request if the prescription is for a schedule II opioid drug., 162.54, cm, 07/29/24 8:48:00 EDT, Height, 94.8, kg, 04/28/24 9:57:00 EST, Dry Weight Start Date: 08/04/24 Status: Ordered Quantity: 2.0 Unit: each Repeat number: 6 allopurinol 300 mg oral tablet TAKE 1 TABLET BY MOUTH EVERY DAY WITH LUNCH Start Date: 02/11/22 Status: Ordered Repeat number: 1 aspirin 81 mg oral delayed release tablet 81 mg, 1, tablet, By Mouth, Daily, # 100 tablet, Refills 3, Tot. Refills 3, Maintenance, 03/31/24 5:18:00 PM EST, Route to Pharmacy Electronically, [facility] #[id number], Partial fill upon patient request if the [...] Refills, Maintenance, 06/18/23 10:46:00 AM EDT, Tablet, [facility] #[id number], Partial fill upon patient request if the [...] Refills, Maintenance, 03/31/24 5:17:00 PM EST, Tablet, [facility] #[id number], Partial fill upon patient request if the [...] Active Hypertension Confirmed Active Insomnia Confirmed Active Obese class I Confirmed Active Obstructive sleep apnea of adult Confirmed Active Sweating symptom Confirmed Active Social History Social History Type Response Smoking Status Never smoker; Tobacc o user in household: No entered on: 09/19/13 Sex Sex Representation Female (finding) Laboratory * Event Display: Non [facility] Lab Results Authored Date: * Event Display: Non [facility] Lab Results Authored Date: * Event Display: Non [facility] Lab Results Authored Date: Patient Care team information Care Team Personnel Name: Roslyn Bell Position: [facility] Associate Professional Member Role: PCP Address: [address] [place] [address] Telecom: Care Team Related Persons Name: JACOBO JONES Name: LAMIN (PRIMARY CONTACT)NICANOR Name: GIOVANNI CARRENO Insurance Providers Guarantor name: MANUEL TEMPLENKO Health Plan Information #: 1 Payer: MEDICARE B Payer Identifier: Member Number: [id number] Group Number: Subscriber Identifier: [id number] Relationship to Subscriber: self Coverage Type: NA Coverage Verification Date: Telecom: Address: Health Plan Information #: 2 Payer: [employer] Payer Identifier: Member Number: [id number] Group Number: Subscriber Identifier: [id number] Relationship to Subscriber: self Coverage Type: MEDICAID Coverage Verification Date: Telecom: Address:
--- NOTE | 2024-09-20 10:26 | A.OFFVIS_ITS ---
Intake Visit Reasons: 6m/lasix renogram Allergies No Known Allergies Allergy (Verified 06/30/24 12:20) HPI Comments Details: Bettina is a pleasant Gabonese-speaking female. She is a patient of Dr. Akins. She is seen for the following urologic conditions - hydronephrosis Assisted Gabonese translation using Fwd: Power translate Followup Renogram performed no evidence of obstruction recommendation to continue follow-up with nephrology 09/07 Small right kidney, with findings a dilated atonic right renal collecting system rather than obstruction. Findings are similar in appearance to the prior study. Renogram - 04/09 The relative function of the two kidneys based on the 2-3 minute images are: Left 73% and right 27%. LEFT KIDNEY: Normal function. RIGHT KIDNEY: Significantly less functional contribution related to the left. Preserved parenchymal function and dilated but nonobstructing collecting system. Creatinine 1.6 Hydronephrosis Detected during renal ultrasound Ultrasound - 12/07 Mild hydronephrosis of right kidney Creatinine - not available Recommend creatinine with Lasix renogram PFSH Medical History Epigastric pain Hyperuricemia Stage 2 chronic kidney disease Type 2 diabetes mellitus Lumbar degenerative disc disease Hyperlipidemia Hypertension Left cervical radiculopathy Review of Systems Const Denies chills and Denies fever(s) Card Reports no additional complaints and Denies syncope Resp Denies cough GI Denies abdominal pain and Denies heartburn Reports as per HPI and Denies change in libido Neuro Denies syncope Psych Denies change in libido Endo Denies change in libido Physical Exam Const General: cooperative, healthy appearing, comfortable and no acute distress Orientation/consciousness: patient oriented x3 HEENT Face and sinus: Yes normal facial exam Mouth: moist mucous membranes Neck Neck: Yes normal visual inspection, Yes full ROM and Yes trachea midline Chest Chest palpation & inspection: normal inspection of the chest Resp Effort & Inspection: normal respiratory effort, able to speak in complete sentences and no respiratory distress GI Inspection: Yes normal to inspection Back/Spine/Pelvis Cervical Spine: normal cervical lordosis Thoracic/Lumbar Spine: thoracic and lumbar spine normal to inspection Skin General skin exam: no rashes or lesions noted Neuro General: patient oriented x3, gait normal, tone normal and moves all extremities Extrem General: Yes normal to inspection and Yes capillary refill normal Assessment & Plan Assessment & Plan (1) Hydronephrosis: Code(s): N13.30 - Unspecified hydronephrosis Category: Medical (2) Kidney atrophy: Code(s): N26.1 - Atrophy of kidney (terminal) Category: Medical Plan follow-up nephrology Patient Instructions: This note is constructed using voice recognition software. While every effort has been made to ensure accuracy health promoter errors may have been included. Imaging studies, laboratory and physical exam results were discussed and reviewed in detail. No major barriers to patient understanding were identified. An opportunity to ask questions regarding the treatment plan was provided. All questions were answered. The patient expressed understanding and agreement with the above treatment plan. The patient is aware they should contact our office by phone for worsening of their current condition or the appearance of new urologic symptoms. Compliance is encouraged with any medications and followup testing that is ordered. It is a privilege to participate in the urologic care of your patient. If you have any questions or concerns regarding treatment for the above conditions, or other urologic issues, please do not hesitate to contact me. The office telephone contact is [phone]. Sincerely, Dr Obi Gamboa MD, [facility] Compassionate Specialist Care for the Genitourinary System Coding Level of Care Code Est Pt Level 3 (40014) Diagnoses Hydronephrosis N13.30 Kidney atrophy N26.1
--- OUTSIDE RECORDS SUMMARY | 2024-09-20 11:13 | XMS_ITS | Clinical Summary ---
Author Organization [address] [facility] Address [address] [place] [address] Phone Care Team Providers Care Chief Wharfinger Name Role Phone Roslyn Akins Primary Care Provider Social History Tobacco Use Types Packs/Day Years [...] Upcoming Encounters Date Type Department Care Team ([facility] Contact Info) Description 10/13/2024 9:30 AM EDT Consult Orthopedic Surgery - [place] [address] [phone] Randell King, DPM [address] [address] Health Maintenance Due Date Last Done Comments [...] 02/11/2022 Falls Risk Assessment 08/21/2023 COVID-19 Vaccine (1 - 2023-2 5 season) 2023 Influenza Vaccine (#1) 2024 RSV Immunization Adult Patie nts (1 [...] Insurance MEDICARE MEDICAID - [place] Care Teams Chief Wharfinger Relationship Specialty Start Date End Date Roslyn Akins PA [address] [place] [id number] PCP - General Internal Medicine 03/12/21
--- OUTSIDE RECORDS SUMMARY | 2024-09-20 11:13 | XMS_ITS | Clinical Summary ---
Author Organization [facility] Address [address] [place] [address] Care Team Providers Care Animal Control Supervisor Name Role Phone Roslyn Akins PA-C Primary Care Provider [phone] Source Comments PLEASE NOTE, if this patient [...] Low 05/30/2024 itching Medications colchicine 0.6 mg tabletIndication s:Hyperuricemia TAKE 2 TABLETS BY MOUTH ON DAY 1 THEN 1 TABLET TWICE DAILY UNTIL GOUT FLARE RESOLVES 60 Tablet 024 Active traZODone (DESYREL) 50 mg tabletIndication s:Primary insomnia 1-2 tabs po qhs prn insomnia 180 Tablet 1 024 Active alcohol swabsIndications :Type 2 diabetes mellitus without complication, without long-term current use of insulin ([facility]) Use qd, dx E11.9 50 Each 024 Active lancets (FREESTYLE LANCETS) 28 gaugeIndications :Type 2 diabetes mellitus without complication, without long-term current use of insulin ([facility]) Freestyle lite lancets, use QD, dx E11.9 50 Each 024 Active blood sugar diagnostic stripsIndication s:Type 2 diabetes mellitus without complication, without long-term current use of insulin ([facility]) 1 Each daily. Freestyle lite strips use QD, dx E11.9 50 Each 024 Active blood-glucose meter monitoring kitIndications:T ype 2 diabetes mellitus without complication, without long-term current use of insulin ([facility]) 1 Each daily. Freestyle lite meter, disp 1, lifetime need, dx E11.9 1 Each 024 Active diclofenac sodium (VOLTAREN) 1 % [...] times daily 60 g 3 [address] aspirin [address] tabletIndication s:Type 2 diabetes mellitus without complication, without long-term current use of insulin ([facility]) TAKE 1 TABLET BY MOUTH ONCE DAILY 90 Tablet 1 024 Active lisinopriL 20 mg tabletIndication s:Essential hypertension, benign Take 0.5 Tablets by mouth nightly at bedtime 024 Active clobetasoL (TEMOVATE) 0.05 % ointmentIndicati ons:Lichen sclerosus of vulva Apply topically nightly at bedtime Please apply to vulva every night for 12 weeks then taper to once or twice a week at night. 60 g 3 024 Active glimepiride (AMARYL) 4 mg tabletIndication s:Uncontrolled type 2 diabetes mellitus with hyperglycemia ([facility]) TAKE 1 TABLET BY MOUTH EVERY DAY WITH BREAKFAST 90 Tablet 2 024 Active allopurinoL (ZYLOPRIM) 300 mg tabletIndication s:Acute idiopathic gout of left foot TAKE 1 TABLET BY MOUTH EVERY DAY WITH LUNCH 90 Tablet 2 024 Active semaglutide (OZEMPIC) 2 mg/dose (8 mg/3 mL) pen injectorIndicati ons:Type 2 diabetes mellitus without complication, without long-term current use of insulin ([facility]) Inject 2 mg into the skin once a week 6 mL 3 025 Active atorvastatin (LIPITOR) 80 mg tabletIndication s:Type 2 diabetes mellitus without complication, without long-term current use of insulin ([facility]),Hyperli pidemia, mixed Take 1 Tablet by mouth nightly at bedtime 90 Tablet 3 025 Active ezetimibe (ZETIA) 10 mg tabletIndication s:Type 2 diabetes mellitus without complication, without long-term current use of insulin ([facility]),Hyperli pidemia, mixed TAKE 1 TABLET BY MOUTH DAILY TAKE IN ADDITION TO ATORVASTATIN Active OYSCO 500/D 500 mg-5 mcg (200 unit) per tabletIndication s:Non morbid obesity TAKE 1 TABLET BY MOUTH EVERY DAY 90 Tablet 2 025 Active bisoprolol (ZEBETA) 5 mg tablet TAKE 1 TABLET BY MOUTH EVERY DAY 90 Tablet 2 025 Active BD JINA 2ND GEN PEN NEEDLE 32 gauge x ndleIndications: Uncontrolled type 2 diabetes mellitus with hyperglycemia ([facility]) USE DIRECTED TO TEST BLOOD SUGAR 100 Each 025 Active isosorbide mononitrate ER (IMDUR) 30 mg 24 hr tabletIndication s:Essential hypertension, benign TAKE 1 TABLET BY MOUTH EVERY MORNING 90 Tablet 2 025 Active dapagliflozin propanediol 10 mg tabIndications:T ype 2 diabetes mellitus without complication, without long-term current use of insulin ([facility]) TAKE 1 TABLET BY MOUTH DAILY 90 Tablet 2 025 Active FARXIGA 10 mg tabIndications:T ype 2 diabetes mellitus without complication, without long-term current use of insulin ([facility]) TAKE 1 TABLET BY MOUTH DAILY 90 Tablet 2 025 2024 Discontinued Active Problems Problem Noted Date Diagnosed Date Obstructive sleep apnea of adult 11/04/2022 Multiple RIGHT thyroid nodules 03/2022 3 Stage 2 chronic kidney disease 03/11/2021 History of echocardiogram 07/01/2017, 04/2021 Overview (06/25/2021): Result type: Echocardiogram - Complete Result date: May 09, 2021 10:36 EST Result status: Modified Result title: Echo Complete Performed by: Kaz MAZARIEGOS Emma N on May 09, 2021 10:36 EST Verified by: Emma Mccurdy MD on May 09, 2021 10:36 EST Encounter info: [id number], [facility], One Time OP, 05/09/2021 - 05/09/2021 Contributor system: [employer] Echo Complete-Doppler, Colorflow, M-Mode Transthoracic Echocardiography Report (TTE) Patient Demographics Patient Name CINDA, Date of Study 05/09/2021 MANUEL Chaves Gender Female Facility Race Ethnicity Date of 1960 Height: 62.6 inches Age 60 year(s) Weight: 238.1 pounds Accession Number [id number] BSA: 2.07 m2 Room Number BMI: 42.72 kg/m2 Referring Physician Margie BOB Interpreting Emma Mccurdy MD Physician Service Director [place] Indications Chest pain. Clinical History [...] mmHg E' Lateral Velocity: 7.9 cm/s E/Med E':17.45446 E/Lat E':12.13684 Cardiac Anatomy Left Ventricle/Interventricular Septum The wall [...] June 29, 2017 10:07 EDT Encounter info: [id number], [facility], One Time OP, 06/29/2017 - 06/29/2017 Contributor system: [employer] Echo Complete This document has an image Echo Complete-Doppler, Colorflow, M-Mode Transthoracic Echocardiography Report (TTE) Patient Demographics Patient Name CINDA, Date of Study 06/29/2017 MANUEL Chaves Gender Female Facility Race Ethnicity Date of 1960 Height: 63 inches Age 56 year(s) Weight: 245.01 pounds Accession Number [id number] BSA: 2.11 m2 Room Number BMI: 43.4 kg/m2 Referring Physician Margie BOB Interpreting Sue Humphrey MD Physician Service Director Portia Sandoval RCS Indications Chest pain. Clinical [...] mmHg E' Lateral Velocity: 8.68 cm/s E/Med E':15.67527 E/Lat E':8.20505 Cardiac Anatomy Left Ventricle/Interventricular Septum The left [...] complication, without long-term current use of insulin ([facility]) 03/15/2013 Overview (05/30/2015): Opthal exam 04/2015 Dr. Narvaez @ [facility], no retinopathy Non morbid obesity 03/15/2013 Hyperlipidemia, mixed 03/15/2013 Lumbar degenerative disc disease 03/15/2013 Knee osteoarthritis 03/15/2013 Hyperuricemia 03/15/2013 Renal cyst, right 01/2013 ultrasound 03/15/2013 Immunizations Immunization Administration Dates Next Due PNEUMOCOCCAL CONJUGATE PCV 20 (Prevnar 20) 11/04 PNEUMOCOCCAL POLYSACCHARIDE PPV23 (Pneumovax 23) 03/15/2013 Social History Tobacco Use Types Packs/Day Years Used Date Smoking Tobacco: Never Smokeless Tobacco: Never Tobacco Cessation:Counseling Given: Not Answered Alcohol Use Standard Drinks/Week Comments No 0 (1 standard drink = 0.6 oz pur e alcohol) Social Connections Answer Date Recorded How often do you feel lonely or isolated from th ose around you? 1 04/18/2024 Financial Resource Strain Answer Date R ecorded Hard to pay for: Food 1 04/18/2024 Stress Answer Date Recorded Do you feel these kinds of stress these days? 1 04/18/2024 Physical Activity Answer Date Recorded Physical Activity 0 11/02/2018 Food Insecurity Answer Date Recorded Hard to pay for: Food 1 04/18/2024 Transportation Needs Answer Date Record ed Hard to pay for: Transportation 1 04/18/2024 Housing Stability Answer Date Recorded Hard to pay for: Rent/Mortgage payment 1 04/18/2024 Safety and Environment Answer Date Wilner rded Safety 1 04/28/2023 Utilities Answer Date Recorded Hard to pay for: Utilities 1 04/18 Employment Answer Date Recorded Stress 0 04/28/2023 [...] Annual Screen Completed 025, 12/19/2014, 10/21/2013 (Declined) [id number] Discontinued Imm-DTaP/Tdap/Td Discontinued Procedures Procedure Name Priority Date/Time Associated Diagnosis Comments IMAGING SCANNED DOCUMENT 09/13/2024 3:00 AM EDT IMAGING SCANNED DOCUMENT 09/13/2024 3:00 AM EDT PROFESSOR OF PRACTICE REPORT 3:00 AM EDT REFERRAL SCANNED DOCUMENT [...] complication, without long-term current use of insulin ([facility]) Stage 2 chronic kidney disease Microalbuminuria Hyperuricemia LIPID PANEL Routine 11/10/2023 3:47 PM EDT Left cervical radiculopathy Essential hypertension, benign Hyperlipidemia, mixed Lumbar degenerative disc disease Type 2 diabetes mellitus without complication, without long-term current use of insulin ([facility]) Stage 2 chronic kidney disease Microalbuminuria Hyperuricemia MICROALBUMIN/CREATININE RATIO, URINE, RANDOM Routine 11/10/2023 3:47 PM EDT Left cervical radiculopathy Essential hypertension, benign Hyperlipidemia, mixed Lumbar degenerative disc disease Type 2 diabetes mellitus without complication, without long-term current use of insulin ([facility]) Stage 2 chronic kidney disease Microalbuminuria Hyperuricemia HEMOGLOBIN GLYCOSYLATED A1C Routine 11/10/2023 3:47 PM EDT Left cervical radiculopathy Essential hypertension, benign Hyperlipidemia, mixed Lumbar degenerative disc disease Type 2 diabetes mellitus without complication, without long-term current use of insulin ([facility]) Stage 2 chronic kidney disease Microalbuminuria Hyperuricemia HEPATITIS C ANTIBODY Routine 10/26/2017 12:09 PM EDT Uncontrolled type 2 diabetes mellitus without complication, without long-term current use of insulin ([facility]) from Last 3 Months or Most Recently Relevant to Health Maintenance Results * IMAGING SCANNED DOCUMENT (09/13/2024 3:00 AM EDT) Only the most recent of2 resultswithin the time period is included. 09/13/2024 3:00 AM EDT Gigi Gamboa RN SCAN IMAGING Final Result * PROFESSOR OF PRACTICE REPORT (08/03/2024 3:00 AM EDT) 08/03/2024 3:00 AM EDT Roslyn Lukin PA-C SCAN PROCEDURES Final Result * REFERRAL SCANNED DOCUMENT (06/30/2024 3:00 AM EDT) 06/30/2024 3:00 AM EDT Roslyn Lukin PA-C SCAN REFERRAL Final Result * LAB SCANNED DOCUMENT (06/23/2024 3:00 AM EDT) 06/23/2024 3:00 AM EDT Roslyn Lukin PA-C SCAN LAB Final Result * SCREENING MAMMOGRAM BILATERAL (11/25/2023 3:00 AM EDT) 11/25/2023 3:00 AM EDT us Roslyn Akins PA-C IMG MAMMO Final Result * MICROALBUMIN/CREATININE RATIO, URINE, RANDOM (11/10/2023 3:47 PM EDT) CREATININE, RANDOM URINE 100 20 - 275 mg/dL [facility] MICROALBUMIN 0.6 mg/dL [facility] Comment: Reference Range Not established MICROALBUMIN/CREA TININE RATIO, RANDOM URINE 6 <30 mg/g creat [facility] Comment: The ADA defines abnormalities in albumin [...] PM EDT 11/10/2023 3:48 PM EDT Narrative [facility] - 11/12/2023 8:07 PM EDT FASTING:UNKNOWN PATIENT NOT FASTING; ADVISED TO RETURN FOR COLLECTION. Roslyn Akins PA-C LAB URINE AMBULATORY Final R esult [facility] [address] [place] [id number], [facility] [address] [place] [id number] * (ABNORMAL) HEMOGLOBIN GLYCOSYLATED A1C (11/10/2023 3:47 PM EDT) HEMOGLOBIN A1C 9.3(H) <5.7 % of total Hgb [facility] Comment: For someone without known diabetes, a [...] PM EDT 11/10/2023 3:48 PM EDT Narrative [facility] - 11/12/2023 8:07 PM EDT FASTING:UNKNOWN PATIENT NOT FASTING; ADVISED TO RETURN FOR COLLECTION. us Roslyn Akins PA-C LAB - BLOOD DRAW Edited Resu lt - Final [facility] [address] [address], [facility] [address] [place] [address] * (ABNORMAL) LIPID PANEL (11/10/2023 3:47 PM EDT) CHOLESTEROL, TOTAL 170 <200 mg/dL [facility] HDL CHOLESTEROL 37(L) > OR = 50 mg/dL [facility] TRIGLYCERIDES 404(H) <150 mg/dL [facility] Comment: If a non-fasting specimen was collected, consider repeat triglyceride testing on a fasting specimen if clinically indicated. Rosanne et al. J. of Clin. Lipidol. 2015;9:129-169. LDL-CHOLESTEROL See Note [facility] Comment: LDL cholesterol not calculated. Triglyceride levels [...] LDL-C. Guanakito BOCANEGRA et al. NOE. 2013;310(19): 4020-4420 (http://education.Tipp24.plista/faq/LYY182) CHOL/HDLC RATIO 4.6 <5.0 (calc) [facility] NON-HDL CHOLESTEROL 133(H) <130 mg/dL (calc) [facility] Comment: For patients with diabetes plus 1 major ASCVD risk factor, treating to a non-HDL-C goal of <100 mg/dL (LDL-C of <70 mg/dL) is considered a therapeutic option. Blood Blood / Unknown 11/10/2023 3 :47 PM EDT 11/10/2023 3:48 PM EDT Narrative [employer] [facility] - 11/12/2023 8:07 PM EDT FASTING:UNKNOWN PATIENT NOT FASTING; ADVISED TO RETURN FOR COLLECTION. us Roslyn Akins PA-C LAB - BLOOD DRAW Final Resul t [facility] [address] [address], [facility] [facility] [address] [place] [address] * (ABNORMAL) COMPREHENSIVE METABOLIC PANEL (11/10/2023 3:47 PM EDT) GLUCOSE 213(H) 65 - 99 mg/dL [facility] Comment: Fasting reference interval For someone without known diabetes, a glucose value >125 mg/dL indicates that they may have diabetes and this should be confirmed with a follow-up test. UREA NITROGEN (BUN) 29(H) 7 - 25 mg/dL [facility] CREATININE (blood) 1.94(H) 0.50 - 1.05 mg/dL [facility] EGFR 28(L) > OR = 60 mL/min/1. 73m2 [facility] BUN/CREATININE RATIO 15 6 - 22 (calc) [facility] SODIUM 138 135 - 146 mmol/L [facility] POTASSIUM 4.3 3.5 - 5.3 mmol/L [facility] CHLORIDE 104 98 - 110 mmol/L [facility] CARBON DIOXIDE 26 20 - 32 mmol/L [facility] CALCIUM 9.7 8.6 - 10.4 mg/dL [facility] PROTEIN, TOTAL 6.6 6.1 - 8.1 g/dL [facility] ALBUMIN 4.3 3.6 - 5.1 g/dL [facility] GLOBULIN 2.3 1.9 - 3.7 g/dL (calc) [facility] ALBUMIN/GLOBULI N RATIO 1.9 1.0 - 2.5 (calc) [facility] BILIRUBIN, TOTAL 1.2 0.2 - 1.2 mg/dL [facility] ALKALINE PHOSPHATASE 120 37 - 153 U/L [facility] AST 11 10 - 35 U/L [facility] ALT 17 6 - 29 U/L [facility] Blood Blood / Unknown 11/10/2023 3 :47 PM EDT 11/10/2023 3:48 PM EDT Narrative [facility] [facility] - 11/12/2023 8:07 PM EDT FASTING:UNKNOWN PATIENT NOT FASTING; ADVISED TO RETURN FOR COLLECTION. Roslyn Akins PA-C LAB - BLOOD DRAW Edited Resu lt - Final [facility] [address] [address], [employer] [address] [address] * HEPATITIS C ANTIBODY (10/26/2017 12:09 PM EDT) HEPATITIS C VIRUS SCREEN NEGATIVE NEGATIVE [facility] Blood specimen (specimen) Blood / Unknown 10/26/2017 12:09 PM EDT 10/26/2017 12:23 PM EDT [facility] - 10/26/2017 4:38 PM EDT [employer] [address] [place] [address] [place] [id number] ORD# [id number] Roslyn Akins PA-C LAB - BLOOD DRAW Final Resul t Performing Organization Address [facility]/ZIP Co de Phone Number [facility] [employer] [address], from Last 3 Months or Most Recently Relevant to Health Maintenance Insurance [employer] [place] Care Teams Animal Control Supervisor Relationship Specialty Start Date End Date Roslyn Akins PA-C [address] [place] [phone] PCP - General Internal Medicine 04/26/18
== END 2024-09-20 10:33 | disposition home or self-care (01) ==
LOC: HO.HUSH 10:22
PROVIDERS: PCP Physician Assistant; Visit Provider Urology
DX: N13.30 Unspecified hydronephrosis (principal); N26.1 Atrophy of kidney (terminal)
CPT/HCPCS: 99213

== ENCOUNTER → 2024-09-20 10:21 | Outpatient (BNVA) | payer MEDICARE, MEDICAID, SELFPAY | PROVIDERS: PCP Physician Assistant; Visit Provider Urology | DX: N26.1 Atrophy of kidney (terminal) (principal); N13.30 Unspecified hydronephrosis | CPT/HCPCS: 99212 ==

== ENCOUNTER 2024-10-26 15:43 | Outpatient (REF) | payer MEDICARE, MEDICAID, SELFPAY ==
--- OUTSIDE RECORDS SUMMARY | 2024-10-26 15:45 | XMS_ITS | Clinical Summary ---
Author Organization [facility] Address [address] [place] [address] Care Team Providers Care Assistant Controller Name Role Phone Mable Roslyn BARNES Primary Care Provider [phone] Source Comments PLEASE NOTE, if this patient is a minor, it may be UNLAWFUL to discuss sensitive information that is contained in these records (such as FAMILY PLANNING, MENTAL HEALTH or SUBSTANCE ABUSE) with the minor patient's parent or other person without the patient's specific authorization.[facility] Allergies Active Allergy Reactions Criticality Noted Date Comments Insulin Glargine Hypersensitivity Low 05/30/2024 itching Medications traZODone (DESYREL) 50 mg tabletIndication s:Primary insomnia 1-2 tabs po qhs prn insomnia 180 Tablet 1 024 Active alcohol swabsIndications :Type 2 diabetes mellitus without complication, without long-term current use of insulin ([facility]) Use qd, dx E11.9 50 Each 024 Active lancets (FREESTYLE LANCETS) 28 gaugeIndications :Type 2 diabetes mellitus without complication, without long-term current use of insulin ([facility]) Freestyle lite lancets, use QD, dx E11.9 50 Each 024 Active blood sugar diagnostic stripsIndication s:Type 2 diabetes mellitus without complication, without long-term current use of insulin ([facility]) 1 Each daily. Freestyle lite strips use QD, dx E11.9 50 Each 024 Active blood-glucose meter monitoring kitIndications:T ype 2 diabetes mellitus without complication, without long-term current use of insulin ([facility]) 1 Each daily. Freestyle lite [...] complication, without long-term current use of insulin ([facility]) TAKE 1 TABLET BY MOUTH [...] at night. 60 g 3 024 Active semaglutide (OZEMPIC) 2 mg/dose (8 mg/3 mL) pen injectorIndicati ons:Type 2 diabetes mellitus without complication, without long-term current use of insulin ([facility]) Inject 2 mg into the skin once a week 6 mL 3 025 Active atorvastatin (LIPITOR) 80 mg tabletIndication s:Type 2 diabetes mellitus without complication, without long-term current use of insulin ([facility]),Hyperli pidemia, mixed Take 1 Tablet by mouth nightly at bedtime 90 Tablet 3 025 Active ezetimibe (ZETIA) 10 mg tabletIndication s:Type 2 diabetes mellitus without complication, without long-term current use of insulin ([facility]),Hyperli pidemia, mixed TAKE 1 TABLET BY MOUTH DAILY TAKE IN ADDITION TO ATORVASTATIN Active OYSCO 500/D 500 mg-5 mcg (200 unit) per tabletIndication s:Non morbid obesity TAKE 1 TABLET BY MOUTH EVERY DAY 90 Tablet 2 025 Active bisoprolol (ZEBETA) 5 mg tablet TAKE 1 TABLET BY MOUTH EVERY DAY 90 Tablet 2 025 Active isosorbide mononitrate ER (IMDUR) 30 mg 24 hr tabletIndication s:Essential hypertension, benign TAKE 1 TABLET BY MOUTH EVERY MORNING 90 Tablet 2 025 Active dapagliflozin propanediol 10 mg tabIndications:T ype 2 diabetes mellitus without complication, without long-term current use of insulin ([facility]) TAKE 1 TABLET BY MOUTH DAILY 90 Tablet 2 025 Active colchicine 0.6 mg tabletIndication s:Hyperuricemia TAKE 2 TABLETS BY MOUTH FOR 1 DAY THEN TAKE 1 TABLET BY MOUTH TWICE DAILY UNTIL GOUT FLARE RESOLVES. 60 Tablet 11 025 Active glimepiride (AMARYL) 4 mg tabletIndication s:Uncontrolled type 2 diabetes mellitus with hyperglycemia ([facility]) TAKE 1 TABLET BY MOUTH EVERY DAY WITH BREAKFAST 90 Tablet 2 025 Active allopurinoL (ZYLOPRIM) 300 mg tabletIndication s:Acute idiopathic gout of left foot TAKE 1 TABLET BY MOUTH EVERY DAY WITH LUNCH 90 Tablet 2 025 Active BD JINA 2ND GEN PEN NEEDLE 32 gauge x 532 ndleIndications: Uncontrolled type 2 diabetes mellitus with hyperglycemia ([facility]) USE DIRECTED TO TEST BLOOD SUGAR 100 Each 025 Active glimepiride (AMARYL) 4 mg tabletIndication s:Uncontrolled type 2 diabetes mellitus with hyperglycemia ([facility]) TAKE 1 TABLET BY MOUTH EVERY DAY WITH BREAKFAST 90 Tablet 2 024 2024 Discontinued allopurinoL (ZYLOPRIM) 300 mg tabletIndication s:Acute idiopathic gout of left foot TAKE 1 TABLET BY MOUTH EVERY DAY WITH LUNCH 90 Tablet 2 024 2024 Discontinued BD JINA 2ND GEN PEN NEEDLE 32 gauge x 5/32 ndleIndications: Uncontrolled type 2 diabetes mellitus with hyperglycemia ([facility]) USE DIRECTED TO TEST BLOOD SUGAR 100 Each 025 2024 Discontinued Active Problems Problem Noted [...] May 09, 2021 10:36 EST Encounter info: [id number], [facility], One Time OP, 05/09/2021 - 05/09/2021 Contributor system: Dexterra Echo Complete-Doppler, Colorflow, M-Mode Transthoracic Echocardiography Report (TTE) Patient Demographics Patient Name KAREN, Date of Study 05/09/[address] [facility] Gender Female Facility Race Ethnicity Date of 1960 Height: 62.6 inches Age 60 year(s) Weight: 238.1 pounds Accession Number [id number] BSA: 2.07 m2 Room Number BMI: 42.72 kg/m2 Referring Physician Margie BOB Interpreting Emma Mccurdy MD Physician Director Sales And Marketing [place] Indications Chest pain. Clinical History CM HLD HTN VEL Study Data Type of Study TTE procedure:Echo Complete-Doppler, Colorflow, M-Mode. Study Date05/09/2021 Start Time: 10:36 AM Study Location: [facility] Adult Echo Study Status: Echo lab Patient [...] mmHg E' Lateral Velocity: 7.9 cm/s E/Med E':17.56076 E/Lat E':12.03165 Cardiac Anatomy Left Ventricle/Interventricular Septum The wall [...] June 29, 2017 10:07 EDT Encounter info: [id number], [facility], One Time OP, 06/29/2017 - 06/29/2017 Contributor system: Dexterra Echo Complete This document has an image Echo Complete-Doppler, Colorflow, M-Mode Transthoracic Echocardiography Report (TTE) Patient Demographics Patient Name KAREN, Date of Study 06/29/2017 [facility] Gender Female Facility Race Ethnicity Date of 1960 Height: 63 inches Age 56 year(s) Weight: 245.01 pounds Accession Number [id number] BSA: 2.11 m2 Room Number BMI: 43.4 kg/m2 Referring Physician Margie BOB Interpreting Sue Humphrey MD Physician Director Sales And Marketing [facility] Indications Chest pain. Clinical [...] mmHg E' Lateral Velocity: 8.68 cm/s E/Med E':15.72309 E/Lat E':8.40850 Cardiac Anatomy Left Ventricle/Interventricular Septum The left [...] complication, without long-term current use of insulin ([facility]) 03/15/2013 Overview (05/30/2015): Opthal exam [...] Annual Screen Completed 025, 12/19/2014, 10/21/2013 (Declined) [id number] Discontinued Imm-DTaP/Tdap/Td Discontinued Procedures Procedure Name Priority Date/Time Associated Diagnosis Comments REFERRAL SCANNED DOCUMENT 09/20/2024 3:00 AM EDT IMAGING SCANNED DOCUMENT 09/13/2024 3:00 AM EDT IMAGING SCANNED DOCUMENT 09/13/2024 3:00 AM EDT LABORER CUTTING TOOL REPORT 5 3:00 AM EDT SCREENING MAMMOGRAM BILATERAL Routine 11/25/2023 3:00 AM EDT Encounter for screening mammogram for malignant neoplasm of breast COMPREHENSIVE METABOLIC PANEL Routine 11/10/2023 3:47 PM EDT Left cervical radiculopathy Essential hypertension, benign Hyperlipidemia, mixed Lumbar degenerative disc disease Type 2 diabetes mellitus without complication, without long-term current use of insulin ([facility]) Stage 2 chronic kidney disease Microalbuminuria Hyperuricemia LIPID PANEL Routine 11/10/2023 3:47 PM EDT Left cervical radiculopathy Essential hypertension, benign Hyperlipidemia, mixed Lumbar degenerative disc disease Type 2 diabetes mellitus without complication, without long-term current use of insulin ([facility]) Stage 2 chronic kidney disease Microalbuminuria Hyperuricemia MICROALBUMIN/CREATININE RATIO, URINE, RANDOM Routine 11/10/2023 3:47 PM EDT Left cervical radiculopathy Essential hypertension, benign Hyperlipidemia, mixed Lumbar degenerative disc disease Type 2 diabetes mellitus without complication, without long-term current use of insulin (HCC-CMS) Stage 2 chronic kidney disease Microalbuminuria Hyperuricemia HEMOGLOBIN GLYCOSYLATED A1C Routine 11/10/2023 3:47 PM EDT Left cervical radiculopathy Essential hypertension, benign Hyperlipidemia, mixed Lumbar degenerative disc disease Type 2 diabetes mellitus without complication, without long-term current use of insulin (HCC-CMS) Stage 2 chronic kidney disease Microalbuminuria Hyperuricemia HEPATITIS C ANTIBODY Routine 10/26/2017 12:09 PM EDT Uncontrolled type 2 diabetes mellitus without complication, without long-term current use of insulin (HCC) from Last 3 Months or Most Recently Relevant to Health Maintenance Results * REFERRAL SCANNED DOCUMENT (09/20/2024 3:00 AM EDT) 09/20/2024 3:00 AM EDT us Gigi Gamboa RN SCAN REFERRAL Final Result * IMAGING SCANNED DOCUMENT (09/13/2024 3:00 AM EDT) Only the most recent of2 resultswithin the time period is included. 09/13/2024 3:00 AM EDT us Gigi Gamboa RN SCAN IMAGING Final Result * LABORER CUTTING TOOL REPORT (08/03/2024 3:00 AM EDT) 08/03/2024 3:00 AM EDT us Roslyn Akins PA-C SCAN PROCEDURES Final Result * SCREENING MAMMOGRAM BILATERAL (11/25/2023 3:00 AM EDT) 11/25/2023 3:00 AM EDT us Roslyn Akins PA-C IMG MAMMO Final Result * MICROALBUMIN/CREATININE RATIO, URINE, RANDOM (11/10/2023 3:47 PM EDT) CREATININE, RANDOM URINE 100 20 - 275 mg/dL [facility] MICROALBUMIN 0.6 mg/dL [facility] Comment: Reference Range Not established MICROALBUMIN/CREA TININE RATIO, RANDOM URINE 6 <30 mg/g creat [facility] Comment: The ADA defines abnormalities in albumin [...] PM EDT 11/10/2023 3:48 PM EDT Narrative [facility] - 11/12/2023 8:07 PM EDT FASTING:UNKNOWN PATIENT NOT FASTING; ADVISED TO RETURN FOR COLLECTION. us Roslyn Akins PA-C LAB URINE AMBULATORY Final R esult [facility] [address] [place] [id number], [facility] [address] [place] [phone] * (ABNORMAL) HEMOGLOBIN GLYCOSYLATED A1C (11/10/2023 3:47 PM EDT) HEMOGLOBIN A1C 9.3(H) <5.7 % of total Hgb [facility] Comment: For someone without known diabetes, a [...] PM EDT 11/10/2023 3:48 PM EDT Narrative [facility] - 11/12/2023 8:07 PM EDT FASTING:UNKNOWN PATIENT NOT FASTING; ADVISED TO RETURN FOR COLLECTION. us Roslyn Akins PA-C LAB - BLOOD DRAW Edited Resu lt - Final [facility] [address] [address], [facility] [address] [place] [address] * (ABNORMAL) LIPID PANEL (11/10/2023 3:47 PM EDT) [facility] Signature CHOLESTEROL, TOTAL 170 <200 mg/dL [facility] HDL CHOLESTEROL 37(L) > OR = 50 mg/dL [facility] TRIGLYCERIDES 404(H) <150 mg/dL [facility] Comment: If a non-fasting specimen was collected, consider repeat triglyceride testing on a fasting specimen if clinically indicated. Rosanne et al. J. of Clin. Lipidol. 2015;9:129-169. LDL-CHOLESTEROL See Note QUES [email or web address] Comment: LDL cholesterol not calculated. Triglyceride levels [...] LDL-C. Guanakito BOCANEGRA et al. NOE. 2013;310(19): 1899-2990 (http://education.Vidable/faq/ZFP513) CHOL/HDLC RATIO 4.6 <5.0 (calc) [facility] NON-HDL CHOLESTEROL 133(H) <130 mg/dL (calc) [facility] Comment: For patients with diabetes plus 1 major ASCVD risk factor, treating to a non-HDL-C goal of <100 mg/dL (LDL-C of <70 mg/dL) is considered a therapeutic option. Blood Blood / Unknown 11/10/2023 3 :47 PM EDT 11/10/2023 3:48 PM EDT Narrative [email or web address] - 11/12/2023 8:07 PM EDT FASTING:UNKNOWN PATIENT NOT FASTING; ADVISED TO RETURN FOR COLLECTION. us Roslyn Akins PA-C LAB - BLOOD DRAW Final Resul t [facility] [address] [address], [facility] [address] [place] [address] * (ABNORMAL) COMPREHENSIVE METABOLIC PANEL (11/10/2023 3:47 PM EDT) GLUCOSE 213(H) 65 - 99 mg/dL [facility] Comment: Fasting reference interval For someone without known diabetes, a glucose value >125 mg/dL indicates that they may have diabetes and this should be confirmed with a follow-up test. UREA NITROGEN (BUN) 29(H) 7 - 25 mg/dL [facility] CREATININE (blood) 1.94(H) 0.50 - 1.05 mg/dL [facility] EGFR 28(L) > OR = 60 mL/min/1. 73m2 [facility] BUN/CREATININE RATIO 15 6 - 22 (calc) [facility] SODIUM 138 135 - 146 mmol/L [facility] POTASSIUM 4.3 3.5 - 5.3 mmol/L [facility] CHLORIDE 104 98 - 110 mmol/L [facility] CARBON DIOXIDE 26 20 - 32 mmol/L [facility] CALCIUM 9.7 8.6 - 10.4 mg/dL [facility] PROTEIN, TOTAL 6.6 6.1 - 8.1 g/dL [facility] ALBUMIN 4.3 3.6 - 5.1 g/dL [facility] GLOBULIN 2.3 1.9 - 3.7 g/dL (calc) [facility] ALBUMIN/GLOBULI N RATIO 1.9 1.0 - 2.5 (calc) [facility] BILIRUBIN, TOTAL 1.2 0.2 - 1.2 mg/dL [facility] ALKALINE PHOSPHATASE 120 37 - 153 U/L [facility] AST 11 10 - 35 U/L [facility] ALT 17 6 - 29 U/L [facility] Blood Blood / Unknown 11/10/2023 3 :47 PM EDT 11/10/2023 3:48 PM EDT Narrative [facility] - 11/12/2023 8:07 PM EDT FASTING:UNKNOWN PATIENT NOT FASTING; ADVISED TO RETURN FOR COLLECTION. Roslyn Akins PA-C LAB - BLOOD DRAW Edited Resu lt - Final [facility] [address] [address], [facility] [address] [address] * HEPATITIS C ANTIBODY (10/26/2017 12:09 PM EDT) HEPATITIS C VIRUS SCREEN NEGATIVE NEGATIVE [facility] Blood specimen (specimen) Blood / Unknown 10/26/2017 12:09 PM EDT 10/26/2017 12:23 PM EDT [facility] - 10/26/2017 4:38 PM EDT [employer] [address] [place] [address] [place] [id number] ORD# [id number] Roslyn Akins PA-C LAB - BLOOD DRAW Final Resul t Performing Organization Address City/[facility]/ZIP Co de Phone Number [facility] [address], from Last 3 Months or Most Recently Relevant to Health Maintenance Insurance [employer] [place] Care Teams Assistant Controller Relationship Specialty Start Date End Date Roslyn Akins PA-C [address] [place] [address] PCP - General Internal Medicine 04/26/18
[2024-10-26 17:22] LABS: Appearance Urine Clear; Glucose Urine UA >=1000 mg/dL (Negative); PH 5.5 (5.0-9.0); Specific Gravity - Urine >= 1.030 (1.005-1.025); UMIC TRIGGER UA YES
[2024-10-26 17:30] LABS: Anion Gap 15 (12-20); Blood Urea Nitrogen 36 mg/dL (9-16); Calcium 9.3 mg/dL (8.4-10.2); Carbon Dioxide 24 mmol/L (22-29); Chloride 104 mmol/L (96-108); Estimated Glomerular Filt Rate 32; Potassium 4.1 mmol/L (3.3-5.1); Sodium 139 mmol/L (135-145)
[2024-10-26 17:34] LABS: Total Protein Urine Random < 7 mg/dL (<12)
== END 2024-10-26 15:44 | disposition home or self-care (01) ==
LOC: HO.LAB 15:43
PROVIDERS: Visit Provider Internal Medicine Hypertension Specialist
DX: N18.30 Chronic kidney disease, stage 3 unspecified (principal)
CPT/HCPCS: 36415; 80048; 81001; 82570; 84156

== ENCOUNTER 2024-10-31 10:58 | Outpatient (AMB) | payer MEDICARE, MEDICAID, SELFPAY ==
[2024-10-31 11:22] VITALS: BP 102/68; PULSE 64; O2SAT 96; BMI 36.9
--- NOTE | 2024-10-31 11:22 | HO.NEPHOV_ITS ---
Vital Signs 10/31/24 11:22 Height 5 ft 2 in Weight 202 lb BMI 36.9 BP 102/68 Blood Pressure Location Rt brachial Position Sitting Pulse 64 Pulse Source Pulse Oximeter Pulse Oximetry (%) 96 Oxygen Delivery Method Room Air Intake Visit Reasons: 4 MO FU/ Conf Licensing Officer Required: Yes Licensing Officer Name: [id number] Jesus Accompanied by: Self / Same As Patient Allergies No Known Allergies Allergy (Verified 10/31/24 11:25) Medication List - Last Reconciled 10/31/24 by Abdifatah Estrada MD allopurinol 300 mg PO DAILY aspirin 81 mg PO DAILY atorvastatin 80 mg PO BEDTIME bisoprolol fumarate 2.5 mg PO DAILY calcium carbonate-vitamin D3 500 mg-5 mcg (200 unit) (Oysco 500/D) 1 tab PO DAILY colchicine 0.6 mg PO DAILY dapagliflozin propanediol (Farxiga) 10 mg PO DAILY ezetimibe 10 mg PO DAILY glimepiride 4 mg PO QAM insulin glargine-yfgn units subcut isosorbide mononitrate ER 30 mg PO DAILY semaglutide (Ozempic) 2 mg subcut QWEEK vitamin E mixed units PO HPI Comments Details: Bettina is a pleasant 63-year-old woman referred for CKD. She has had diabetes mellitus for more than 15 years. In 03/04/2024 she had a serum creatinine of 1.6 and EGFR of 30 mL/minute. She was found to have mild hydronephrosis on right kidney and mild fullness of the left pelvis without hydronephrosis. Right kidney measured 10.3 cm left kidney measured 11.1 cm. This was followed by a renal scan which revealed a normal left kidney and significantly less functional contribution from the right kidney. She was seen by Urology and referred for further evaluation. Licensing Officer service was used. She has been on Ozempic for quite some time. She was lost about 30 lb. Blood pressure has been rather low and she has had episodes of lightheadedness. No history of syncope. No shortness of breath no chest pain no urinary symptoms no fever no rash no edema. No rash no joint pains. 04/19/24 Feels dizzy 10/31/2024. Overall she is feeling fine. Blood sugar seems to be suboptimally controlled. Recent blood sugar was 458. She has not seen her primary physician in the last 4 months. [facility] Medical History Epigastric pain Hyperuricemia Stage 2 chronic kidney disease Type 2 diabetes mellitus Lumbar degenerative disc disease Hyperlipidemia Hypertension Left cervical radiculopathy Physical Exam Vital Signs: Last Vital Signs Pulse 64 10/31/24 11:22 BP 102/68 10/31/24 11:22 Pulse Ox 96 10/31/24 11:22 Oxygen Delivery Method Room Air 10/31/24 11:22 BMI result Body Mass Index 36.9 Comfortable Neck supple no JVD. Lungs entry equal no rales. Heart S1-S2 heard no gallop or rub. Abdomen soft nontender. Neuro alert awake oriented. No asterixis. Extremities no edema. Results Reviewed Nephrology Results: Sodium, (135-145) 139 mmol/L 10/26/24 Potassium, (3.3-5.1) 4.1 mmol/L 10/26/24 Chloride, (96-108) 104 mmol/L 10/26/24 Carbon Dioxide, (22-29) 24 mmol/L 10/26/24 BUN, (9-16) 36 mg/dL H 10/26/24 Creatinine, (0.5-1.4) 1.62 mg/dL H 10/26/24 Calcium, (8.4-10.2) 9.3 mg/dL 10/26/24 Urine Protein, (Neg-Trace) Negative mg/dL 10/26/24 Urine Creatinine 47.06 mg/dL 10/26/24 Renal US 12/09/23 Assessment & Plan Assessment & Plan (1) CKD (chronic kidney disease) stage 3, GFR 30-59 ml/min: Code(s): N18.30 - Chronic kidney disease, stage 3 unspecified Category: Medical Plan 63-year-old woman with longstanding diabetes mellitus and obesity has CKD 3B. She probably has underlying diabetic kidney disease. Renal ultrasonogram revealed mild hydronephrosis but I doubt if obstructive uropathy is the main contributing factor. Blood pressure has been well controlled. urine protein excretion < 211 mg in 24 hr urine collection ! 24 urine collection creatinine clearance 88 ml/mt with Sr Cr of 1.4. Optimize blood pressure. BP is low despite lowering lisinopril from 20 mg down to 10 mg. Discontinued lisinopril 10 mg daily and BP is still low but asymptomatic Continue to avoid hypotension and avoid nephrotoxic agents. Goal is to slow the progression of renal disease. I have discussed importance of tight control of blood sugar to slow the progression. She is currently on SGLT2 inhibitor and I would continue the same. Encouraged to increase p.o. fluid intake. Needs to follow up with PCP for optimizing blood sugar control All questions were answered. Orders: Orders Basic Metabolic Panel 3 Months N18.30 - Chronic kidney disease, stage 3 unspecified Complete Blood Count Auto Diff 3 Months N18.30 - Chronic kidney disease, stage 3 unspecified Coding Level of Care Code Est Pt Level 4 (89478) Diagnoses CKD (chronic kidney disease) stage 3, GFR 30-59 ml/min N18.30
--- OUTSIDE RECORDS SUMMARY | 2024-10-31 12:11 | XMS_ITS | Clinical Summary ---
Author Organization [facility] Address [address] [place] [address] Care Team Providers Care Senior Water Resources Engineer Name Role Phone Mable Roslyn BARNES Primary Care Provider [phone] Source Comments PLEASE NOTE, if this patient [...] complication, without long-term current use of insulin ([facility]) Use qd, dx E11.9 50 Each 024 Active lancets (FREESTYLE LANCETS) 28 gaugeIndications :Type 2 diabetes mellitus without complication, without long-term current use of insulin ([facility]) Freestyle lite lancets, use QD, dx E11.9 50 Each 024 Active blood sugar diagnostic stripsIndication s:Type 2 diabetes mellitus without complication, without long-term current use of insulin ([facility]) 1 Each daily. Freestyle lite strips use QD, dx E11.9 50 Each 024 Active blood-glucose meter monitoring kitIndications:T ype 2 diabetes mellitus without complication, without long-term current use of insulin ([facility]) 1 Each daily. Freestyle lite meter, [...] complication, without long-term current use of insulin ([facility]) TAKE 1 TABLET BY MOUTH [...] complication, without long-term current use of insulin ([facility]) Inject 2 mg into the skin once a week 6 mL 3 025 Active atorvastatin (LIPITOR) 80 mg tabletIndication s:Type 2 diabetes mellitus without complication, without long-term current use of insulin ([facility]),Hyperli pidemia, mixed Take 1 Tablet by mouth nightly at bedtime 90 Tablet 3 025 Active ezetimibe (ZETIA) 10 mg tabletIndication s:Type 2 diabetes mellitus without complication, without long-term current use of insulin ([facility]),Hyperli pidemia, mixed TAKE 1 TABLET BY [...] complication, without long-term current use of insulin ([facility]) TAKE 1 TABLET BY MOUTH DAILY 90 Tablet 2 025 Active colchicine 0.6 mg tabletIndication s:Hyperuricemia TAKE 2 TABLETS BY MOUTH FOR 1 DAY THEN TAKE 1 TABLET BY MOUTH TWICE DAILY UNTIL GOUT FLARE RESOLVES. 60 Tablet 11 025 Active glimepiride (AMARYL) 4 mg tabletIndication s:Uncontrolled type 2 diabetes mellitus with hyperglycemia ([facility]) TAKE 1 TABLET BY MOUTH EVERY DAY WITH BREAKFAST 90 Tablet 2 025 Active allopurinoL (ZYLOPRIM) 300 mg tabletIndication s:Acute idiopathic gout of left foot TAKE 1 TABLET BY MOUTH EVERY DAY WITH LUNCH 90 Tablet 2 025 Active BD JINA 2ND GEN PEN NEEDLE 32 gauge x 532 ndleIndications: Uncontrolled type 2 diabetes mellitus with hyperglycemia ([facility]) USE DIRECTED TO TEST BLOOD SUGAR 100 Each 025 Active glimepiride (AMARYL) 4 mg tabletIndication s:Uncontrolled type 2 diabetes mellitus with hyperglycemia ([facility]) TAKE 1 TABLET BY MOUTH EVERY DAY WITH BREAKFAST 90 Tablet 2 024 2024 Discontinued allopurinoL (ZYLOPRIM) 300 mg tabletIndication s:Acute idiopathic gout of left foot TAKE 1 TABLET BY MOUTH EVERY DAY WITH LUNCH 90 Tablet 2 024 2024 Discontinued BD JINA 2ND GEN PEN NEEDLE 32 gauge x 5/32 ndleIndications: Uncontrolled type 2 diabetes mellitus with hyperglycemia ([facility]) USE DIRECTED TO TEST BLOOD SUGAR [...] May 09, 2021 10:36 EST Encounter info: [id number], [facility] [place] [facility] [place], 05/09/2021 - 05/09/2021 Contributor system: [employer] Echo Complete-Doppler, Colorflow, M-Mode Transthoracic Echocardiography Report (TTE) Patient Demographics Patient Name KAREN, Date of Study 05/09/2021 [facility] Gender Female Facility Race Ethnicity Date of 1960 Height: 62.6 inches Age 60 year(s) Weight: 238.1 pounds Accession Number [id number] BSA: 2.07 m2 Room Number BMI: 42.72 kg/m2 Referring Physician Margie BOB Interpreting Emma Mccurdy MD Physician Vocational Case Manager [place] Indications Chest pain. Clinical History CM HLD HTN VEL Study Data Type of Study TTE procedure:Echo Complete-Doppler, Colorflow, M-Mode. Study Date05/09/2021 Start Time: 10:36 AM Study Location: [facility] Adult Echo Study Status: Echo lab Patient [...] mmHg E' Lateral Velocity: 7.9 cm/s E/Med E':17.28288 E/Lat E':12.32761 Cardiac Anatomy Left Ventricle/Interventricular Septum The wall [...] 29, 2017 10:07 EDT Verified by: Sue Humphery MD on June 29, 2017 10:07 EDT Encounter info: [id number], [facility] [place] [facility] [place] [facility] Time OP, 06/29/2017 - 06/29/2017 Contributor system: I[employer] Echo Complete This document has an image Echo Complete-Doppler, Colorflow, M-Mode Transthoracic Echocardiography Report (TTE) Patient Demographics Patient Name KAREN, Date of Study 06/29/2017 [facility] [place] Gender Female Facility Race Ethnicity Date of 1960 Height: 63 inches Age 56 year(s) Weight: 245.01 pounds Accession Number [id number] BSA: 2.11 m2 Room Number BMI: 43.4 kg/m2 Referring Physician Margie BOB Interpreting Sue Humphrey MD Physician Vocational Case Manager Portia Sandoval RCS Indications Chest pain. [...] mmHg E' Lateral Velocity: 8.68 cm/s E/Med E':15.12095 E/Lat E':8.54078 Cardiac Anatomy Left Ventricle/Interventricular Septum The left [...] complication, without long-term current use of insulin ([facility]) 03/15/2013 Overview (05/30/2015): Opthal exam [...] Annual Screen Completed 025, 12/19/2014, 10/21/2013 (Declined) [id number] Discontinued Imm-DTaP/Tdap/Td Discontinued Procedures Procedure Name Priority Date/Time Associated Diagnosis Comments REFERRAL SCANNED DOCUMENT 09/20/2024 3:00 AM EDT IMAGING SCANNED DOCUMENT 09/13/2024 3:00 AM EDT IMAGING SCANNED DOCUMENT 09/13/2024 3:00 AM EDT [facility] REPORT 5 3:00 AM EDT SCREENING MAMMOGRAM BILATERAL Routine 11/25/2023 3:00 AM EDT Encounter for screening mammogram for malignant neoplasm of breast COMPREHENSIVE METABOLIC PANEL Routine 11/10/2023 3:47 PM EDT Left cervical radiculopathy Essential hypertension, benign Hyperlipidemia, mixed Lumbar degenerative disc disease Type 2 diabetes mellitus without complication, without long-term current use of insulin ([facility]) Stage 2 chronic kidney disease Microalbuminuria Hyperuricemia LIPID PANEL Routine 11/10/2023 3:47 PM EDT Left cervical radiculopathy Essential hypertension, benign Hyperlipidemia, mixed Lumbar degenerative disc disease Type 2 diabetes mellitus without complication, without long-term current use of insulin ([facility]) Stage 2 chronic kidney disease Microalbuminuria [...] Gamboa RN SCAN IMAGING Final Result * [facility] REPORT (08/03/2024 3:00 AM EDT) 08/03/2024 3:00 AM EDT us Roslyn Akins PA-C SCAN PROCEDURES Final Result * SCREENING MAMMOGRAM BILATERAL (11/25/2023 3:00 AM EDT) 11/25/2023 3:00 AM EDT us Roslyn Akins PA-C IMG MAMMO Final Result * MICROALBUMIN/CREATININE RATIO, URINE, RANDOM (11/10/2023 3:47 PM EDT) CREATININE, RANDOM URINE 100 20 - 275 mg/dL [facility] MICROALBUMIN 0.6 mg/dL [facility] Comment: Reference Range Not established MICROALBUMIN/CREA TININE RATIO, RANDOM URINE 6 <30 mg/g creat [facility] Comment: The ADA defines abnormalities in albumin [...] PM EDT 11/10/2023 3:48 PM EDT Narrative [facility] Pager - 11/12/2023 8:07 PM EDT FASTING:UNKNOWN PATIENT NOT FASTING; ADVISED TO RETURN FOR COLLECTION. us Roslyn Akins PA-C LAB URINE AMBULATORY Final R esult [employer] [address] [place] [id number], [facility] [address] [place] [phone] * (ABNORMAL) HEMOGLOBIN GLYCOSYLATED A1C (11/10/2023 3:47 PM EDT) HEMOGLOBIN A1C 9.3(H) <5.7 % of total Hgb [facility] Comment: For someone without known diabetes, a [...] PM EDT 11/10/2023 3:48 PM EDT Narrative [employer] - 11/12/2023 8:07 PM EDT FASTING:UNKNOWN PATIENT NOT FASTING; ADVISED TO RETURN FOR COLLECTION. us Roslyn Akins PA-C LAB - BLOOD DRAW Edited Resu lt - Final [employer] [address] [address], [facility] [address] [place] [address] * (ABNORMAL) LIPID PANEL (11/10/2023 3:47 PM EDT) [facility] Signature CHOLESTEROL, TOTAL 170 <200 mg/dL [facility] HDL CHOLESTEROL 37(L) > OR = 50 mg/dL [facility] TRIGLYCERIDES 404(H) <150 mg/dL [facility] Comment: If a non-fasting specimen was collected, consider repeat triglyceride testing on a fasting specimen if clinically indicated. Rosanne et al. J. of Clin. Lipidol. 2015;9:129-169. LDL-CHOLESTEROL See Note QUES [facility] [employer] Comment: LDL cholesterol not calculated. Triglyceride levels [...] LDL-C. Guanakito BOCANEGRA et al. NOE. 2013;310(19): 6081-4323 (http://education.Interventional Spine/faq/PRQ689) CHOL/HDLC RATIO 4.6 <5.0 (calc) [facility] NON-HDL CHOLESTEROL 133(H) <130 mg/dL (calc) [facility] Comment: For patients with diabetes plus 1 major ASCVD risk factor, treating to a non-HDL-C goal of <100 mg/dL (LDL-C of <70 mg/dL) is considered a therapeutic option. Blood Blood / Unknown 11/10/2023 3 :47 PM EDT 11/10/2023 3:48 PM EDT Narrative [facility] - 11/12/2023 8:07 PM EDT FASTING:UNKNOWN PATIENT NOT FASTING; ADVISED TO RETURN FOR COLLECTION. us Roslyn Akins PA-C LAB - BLOOD DRAW Final Resul t [employer] [facility] [address] [address], [employer] [facility] [address] [place] [address] * (ABNORMAL) COMPREHENSIVE METABOLIC PANEL (11/10/2023 3:47 PM EDT) GLUCOSE 213(H) 65 - 99 mg/dL [facility] Comment: Fasting reference interval For someone without known diabetes, a glucose value >125 mg/dL indicates that they may have diabetes and this should be confirmed with a follow-up test. UREA NITROGEN (BUN) 29(H) 7 - 25 mg/dL [facility] CREATININE (blood) 1.94(H) 0.50 - 1.05 mg/dL [facility] EGFR 28(L) > OR = 60 mL/min/1. 73m2 [facility] BUN/CREATININE RATIO 15 6 - 22 (calc) [facility] SODIUM 138 135 - 146 mmol/L [facility] POTASSIUM 4.3 3.5 - 5.3 mmol/L [facility] CHLORIDE 104 98 - 110 mmol/L [facility] CARBON DIOXIDE 26 20 - 32 mmol/L [facility] CALCIUM 9.7 8.6 - 10.4 mg/dL [facility] PROTEIN, TOTAL 6.6 6.1 - 8.1 g/dL [facility] ALBUMIN 4.3 3.6 - 5.1 g/dL [facility] GLOBULIN 2.3 1.9 - 3.7 g/dL (calc) [facility] ALBUMIN/GLOBULI N RATIO 1.9 1.0 - 2.5 (calc) [facility] BILIRUBIN, TOTAL 1.2 0.2 - 1.2 mg/dL [facility] ALKALINE PHOSPHATASE 120 37 - 153 U/L [facility] AST 11 10 - 35 U/L [facility] ALT 17 6 - 29 U/L [facility] Blood Blood / Unknown 11/10/2023 3 :47 PM EDT 11/10/2023 3:48 PM EDT Narrative [facility] [facility] - 11/12/2023 8:07 PM EDT FASTING:UNKNOWN PATIENT NOT FASTING; ADVISED TO RETURN FOR COLLECTION. Roslyn Akins PA-C LAB - BLOOD DRAW Edited Resu lt - Final [facility] [facility] [address] [address], [employer] [address] [address] * HEPATITIS C ANTIBODY (10/26/2017 12:09 PM EDT) HEPATITIS C VIRUS SCREEN NEGATIVE NEGATIVE [facility] Blood specimen (specimen) Blood / Unknown 10/26/2017 12:09 PM EDT 10/26/2017 12:23 PM EDT Ankur [facility] - 10/26/2017 4:38 PM EDT [employer] [address] [place] [address] [place] [id number] ORD# [id number] Roslyn Akins PA-C LAB - BLOOD DRAW Final Resul t Performing Organization Address City/[facility]/ZIP Co de Phone Number [facility] [employer] [address], from Last 3 Months or Most Recently Relevant to Health Maintenance Insurance [employer] [place] - [place] Care Teams Senior Water Resources Engineer Relationship Specialty Start Date End Date Roslyn Akins PA-C [address] [place] [address] PCP - General Internal Medicine 04/26/18
== END 2024-10-31 11:38 | disposition home or self-care (01) ==
LOC: HO.HKA 10:59
PROVIDERS: PCP Physician Assistant; Visit Provider Internal Medicine Hypertension Specialist
DX: N18.30 Chronic kidney disease, stage 3 unspecified (principal)
CPT/HCPCS: 99214

== ENCOUNTER → 2024-10-31 10:58 | Outpatient (BNVA) | payer MEDICARE, MEDICAID, SELFPAY | PROVIDERS: PCP Physician Assistant; Visit Provider Internal Medicine Hypertension Specialist | DX: E11.22 Type 2 diabetes mellitus with diabetic chronic kidney disease (principal); N18.30 Chronic kidney disease, stage 3 unspecified; E66.9 Obesity, unspecified; Z68.36 Body mass index [BMI] 36.0-36.9, adult; Z79.4 Long term (current) use of insulin | CPT/HCPCS: 99212 ==

== ENCOUNTER 2025-01-23 11:31 | Outpatient (REF) | payer MEDICARE, MEDICAID, SELFPAY ==
[2025-01-23 11:46] LABS: MANUAL DIFF FLAG NO
[2025-01-23 12:14] LABS: Hematocrit 44.5 % (37.0-47.0); Hemoglobin 15.0 g/dl (12.0-16.0); Imm Gran Abs Auto 0.02 X10*3/uL (0.00-0.03); Imm Gran Pct Auto 0.3 % (0.0-0.4); Lymphocytes Absolute Auto 2.1 X10*3/uL (1.2-4.9); Mean Corpuscular HGB Conc 33.7 g/dl (31.0-35.0); Mean Corpuscular Hemoglobin 30.4 pg (27.0-33.0); Mean Corpuscular Volume 90.3 fL (80.0-98.0); NRBC Abs Auto 0.000 X10*3/uL (0.0-0.012); NRBC Pct Auto 0.0 /100WBC (0.0-0.2); Platelet Count 169 X10*3/uL (160-400); Red Blood Count 4.93 X10*6/uL (4.20-5.50); White Blood Count 7.4 X10*3/uL (4.8-10.8)
[2025-01-23 12:51] LABS: Anion Gap 12 (12-20); Blood Urea Nitrogen 30 mg/dL (9-16); Calcium 9.7 mg/dL (8.4-10.2); Carbon Dioxide 26 mmol/L (22-29); Chloride 107 mmol/L (96-108); Estimated Glomerular Filt Rate 42; Potassium 4.7 mmol/L (3.3-5.1); Sodium 140 mmol/L (135-145)
--- OUTSIDE RECORDS SUMMARY | 2025-01-23 13:53 | XMS_ITS | Encounter Summary ---
Author Organization [facility] Address [id number] [place] [phone] Care Team Providers Care Seamless Tube Roller Name Role Phone Roslyn Akins Primary Care Provider [phone] Reason for Visit * Reason Onset Date Comments Missing Information 01/03/2025 Encounter Details Date Type Department Care Team (Late st Contact Info) Description 01/03/2025 Telephone Gastroenterology - [place] [address] [facility] [address] [place] [phone] Savi Mahajan MD [address] [facility] [address] [place] [address] Social History Tobacco Use Types Packs/Day Years Used Date Smoking Tobacco: Never Assessed Comments Unknown Sex and Gender Information Value Date Recorded Sex Assigned at Not on file Legal Sex Female 11:38 AM EST Gender Identity Not on file Sexual Orientation Not on file documented as of this encounter Progress Notes * Ludivina Aguayo - 01/23/2025 9:10 AM EST No response, records scanned. * Vernell Barrios - 01/18/2025 11:10 AM EST 3RD & FINAL FAX REQUEST SENT FOR MISSING INFO & [facility]ED [facility]. * Manasa Zuñiga - 01/12/2025 11:18 AM EDT 2nd attempt. * Adenike Rojas - 01/03/2025 11:14 AM EDT Received records from [facility] for a consult for Epigastric pain / needs EGD. Missing med/allergy list. Faxed request and placed into missing bin. documented in this encounter Plan of Treatment Not on file documented as of this encounter Visit Diagnoses Not on filedocumented in this encounter Care Teams Seamless Tube Roller Relationship Specialty Start Date End Date Roslyn Akins PA [address] [place] [phone] PCP - General Internal Medicine 03/12/21 documented as of this encounter
--- OUTSIDE RECORDS SUMMARY | 2025-01-23 13:53 | XMS_ITS | Clinical Summary ---
Author Organization 175 [facility] Address [address] [place] [address] Phone Care Team Providers Care Smokehouse Operator Name Role Phone Roslyn Akins Primary Care Provider [phone] Encounters Date Type Department Care Team Description 01/16/2025 11:44 AM EST - 01/16/2025 11:59 PM EST Hospital Encounter [facility] MRI [address] [place] [address] Headache Discharge Disposition: Home or Self Care 01/03/2025 Telephone Gastroenterology - [place] 175 [facility] 175 [facility] [address] [place] [address] Savi Mahajan MD from Last 3 Months Social History Tobacco Use Types Packs/Day Years [...] 06/12/2021 2:22 PM EDT Plan of Treatment Health Maintenance Due Date Last Done Comments Colorectal Cancer Screening: Colonoscopy 1960 Diabetes: Annual Foot Exam 1968 Diabetes: Annual Retina Eye Exam 1968 DTaP,Tdap,and Td Vaccines (1 - Tdap) 1977 Zoster Vaccines (1 of 2) 2008 Medicare Annual Wellness Visit 02/11/2022 Osteoporosis Screening (Bone Density Screening) 02/11/2022 Social Influencers of Health Screening 02/11/2022 Falls Risk Assessment 08/21/2023 Depression Screening 03/16/2024 COVID-19 Vaccine ( - season) 2024 Influenza Vaccine (#1) 2024 Diabetes: Blood Sugar Control Test (HGBA1C) 06/27/2025 12/27/2024 Breast Cancer Screening 11/24/2025 11/25/2023 Diabetes: Annual Urine Albumin-Creatinine Ratio (uACR) 12/27/2025 12/27/2024, 11/10/2023, 04/29/2023, Additional history exists Diabetes: Annual GFR (Glomerular Filtration Rate) 12/27/2025 12/27/2024 Hypertension/CHF/CAD Annual BMP Blood Test 12/27/2025 12/27/2024 Cholesterol Screening (Lipid Panel) 12/27/2029 12/27/2024, 12/27/2024, 11/10/2023, Additional history exists RSV Immunization Adult Patients (1 - 1-dose 75+ series) 2033 Hepatitis C Screening Completed 10/26/2017, 018 Pneumococcal Vaccine: 50+ Years Completed 11/04/2022, 03/15/2013 HIB Vaccines Aged Out No longer eligi [...] to complete this topic RSV Immunization Patients Under 20 months Aged Out No longer eligible based on patient's age to complete this topic Varicella Vaccines Aged Out No longer eligible based on patient's age to complete this topic Procedures Procedure Name Priority Date/Time Associated Diagnosis Comments MR BRAIN WO CONTRAST Routine 01/16/2025 1:27 PM EST Headache from Last 3 Months Results * MR Brain wo Contrast (01/16/2025 1:27 PM EST) Anatomical Region Laterality Modality Head and Neck Magnetic Resonan ce 01/17/2025 1:17 PM EST Impressions 01/17/2025 2:10 PM EST No acute intracranial findings. Age commensurate MRI appearance of the brain. -------- FINAL REPORT -------- Dictated By: Evan Dhaliwal Dictated Date: 01/17/2025 13:17 ET Assigned Physician: Evan Dhaliwal Reviewed and Electronically Signed By: Evan Dhaliwal Signed Date: 01/17/2025 14:10 ET Workstation ID: [id number] Transcribed By: Self Edit Transcribed Date: 01/17/2025 13:17 ET Narrative 01/17/2025 2:10 PM EST PROCEDURE: Noncontrast MRI of the brain. HISTORY: Headaches. COMPARISON: None. TECHNIQUE: Multiplanar multisequence MRI of the brain without intravenous contrast administration. FINDINGS: BRAIN: No diffusion abnormality. No mass or extra-axial fluid collection. No hydrocephalus. The major intracranial flow voids are preserved. Age commensurate ventricles and sulci. Scattered nonspecific T2 hyperintensities in the supratentorial white matter. These are probably sequela of mild chronic microvascular ischemic disease in a patient of this age. ORBITS: Lens implants. SINUSES/MASTOIDS: Frontal sinuses are not pneumatized. Minimal mucosal thickening in the ethmoid air cells and inferior maxillary antra. Trace right mastoid fluid. CALVARIUM: Normal. OTHER: The visualized skull base soft tissues are normal. Partially visible mild degenerative changes of the cervical spine. Procedure Note Evan Dhaliwal MD - 01/17/2025 PROCEDURE: Noncontrast MRI of the brain. HISTORY: Headaches. COMPARISON: None. TECHNIQUE: Multiplanar multisequence MRI of the brain without intravenouscontrast administration. FINDINGS: BRAIN: No diffusion abnormality. No mass or extra-axial fluid collection.No hydrocephalus. The major intracranial flow voids are preserved. Agecommensurate ventricles and sulci. Scattered nonspecific [id number] in the supratentorial white matter. These are probablysequela of mild chronic microvascular ischemic disease in a patient ofthis age. ORBITS: Lens implants. SINUSES/MASTOIDS: Frontal sinuses are not pneumatized. Minimal mucosalthickening in the ethmoid air cells and inferior maxillary antra. Traceright mastoid fluid. CALVARIUM: Normal. OTHER: The visualized skull base soft tissues are normal. Partiallyvisible mild degenerative changes of the cervical spine. IMPRESSION: No acute intracranial findings. Age commensurate MRI appearance of thebrain. -------- FINAL REPORT -------- Dictated By: Evan Dhaliwal Dictated Date: 01/17/2025 13:17 ET Assigned Physician: Evan Dhaliwal Reviewed and Electronically Signed By: Evan Dhaliwal Signed Date: 01/17/2025 14:10 ET Workstation ID: [id number] Transcribed By: Self Edit Transcribed Date: 01/17/2025 13:17 ET Roslyn BOB IMG MRI PROCEDURES Final Resul t from Last 3 Months Insurance MEDICARE MEDICAID - [place] Care Teams Smokehouse Operator Relationship Specialty Start Date End Date Roslyn Akins PA [address] [place] [phone] PCP - General Internal Medicine 03/12/21
== END 2025-01-23 11:32 | disposition home or self-care (01) ==
LOC: HO.LAB 11:31
PROVIDERS: PCP Physician Assistant; Visit Provider Internal Medicine Hypertension Specialist
DX: N18.30 Chronic kidney disease, stage 3 unspecified (principal)
CPT/HCPCS: 36415; 80048; 85025

== ENCOUNTER 2025-01-30 11:13 | Outpatient (AMB) | payer MEDICARE, MEDICAID, SELFPAY ==
[2025-01-30 11:12] VITALS: BP 124/70; PULSE 67; O2SAT 97; BMI 36.9
--- NOTE | 2025-01-30 11:12 | HO.NEPHOV_ITS ---
Vital Signs 01/30/25 11:12 Height 5 ft 2 in Weight 202 lb BMI 36.9 BP 124/70 Blood Pressure Location Rt brachial Position Sitting Pulse 67 Pulse Source Pulse Oximeter Pulse Oximetry (%) 97 Oxygen Delivery Method Room Air Intake Visit Reasons: FU [employer] Required: Yes [employer] Refinisher Name: jose Lazar Accompanied by: Self / Same As Patient Allergies No Known Allergies Allergy (Verified 01/30/25 11:17) Medication List - Last Reconciled 01/30/25 by Abdifatah Estrada MD allopurinol 300 mg PO DAILY aspirin 81 mg PO DAILY atorvastatin 80 mg PO BEDTIME bisoprolol fumarate 2.5 mg PO DAILY calcium carbonate-vitamin D3 500 mg-5 mcg (200 unit) (Oysco 500/D) 1 tab PO DAILY colchicine 0.6 mg PO DAILY dapagliflozin propanediol (Farxiga) 10 mg PO DAILY ezetimibe 10 mg PO DAILY glimepiride 4 mg PO QAM insulin glargine-yfgn units subcut isosorbide mononitrate ER 30 mg PO DAILY semaglutide (Ozempic) 2 mg subcut QWEEK vitamin E mixed units PO HPI Comments Details: Bettina is a pleasant 63-year-old woman referred for CKD. She has had diabetes mellitus for more than 15 years. In 03/04/2024 she had a serum creatinine of 1.6 and EGFR of 30 mL/minute. She was found to have mild hydronephrosis on right kidney and mild fullness of the left pelvis without hydronephrosis. Right kidney measured 10.3 cm left kidney measured 11.1 cm. This was followed by a renal scan which revealed a normal left kidney and significantly less functional contribution from the right kidney. She was seen by Urology and referred for further evaluation. [employer] service was used. She has been on Ozempic for quite some time. She was lost about 30 lb. Blood pressure has been rather low and she has had episodes of lightheadedness. No history of syncope. No shortness of breath no chest pain no urinary symptoms no fever no rash no edema. No rash no joint pains. 04/19/24 Feels dizzy 10/31/2024. Overall she is feeling fine. Blood sugar seems to be suboptimally controlled. Recent blood sugar was 458. She has not seen her primary physician in the last 4 months. 01/30/25 Doing well. No new issues [facility] Medical History Epigastric pain Hyperuricemia Stage 2 chronic kidney disease Type 2 diabetes mellitus Lumbar degenerative disc disease Hyperlipidemia Hypertension Left cervical radiculopathy Physical Exam Vital Signs: Last Vital Signs Pulse 67 01/30/25 11:12 BP 124/70 01/30/25 11:12 Pulse Ox 97 01/30/25 11:12 Oxygen Delivery Method Room Air 01/30/25 11:12 BMI result Body Mass Index 36.9 Comfortable Neck supple no JVD. Lungs entry equal no rales. Heart S1-S2 heard no gallop or rub. Abdomen soft nontender. Neuro alert awake oriented. No asterixis. Extremities no edema. Results Reviewed Results Reviewed: The relative function of the two kidneys based on the 2-3 minute images are: Left 73% and right 27%. NM/NM renal flow w pharm int IMPRESSION: LEFT KIDNEY: Normal function. RIGHT KIDNEY: Significantly less functional contribution related to the left. Preserved parenchymal function and dilated but nonobstructing collecting system. Nephrology Results: Hgb, (12.0-16.0) 15.0 g/dl 01/23/25 WBC, (4.8-10.8) 7.4 X10*3/uL 01/23/25 Plt Count, (160-400) 169 X10*3/uL 01/23/25 Sodium, (135-145) 140 mmol/L 01/23/25 Potassium, (3.3-5.1) 4.7 mmol/L 01/23/25 Chloride, (96-108) 107 mmol/L 01/23/25 Carbon Dioxide, (22-29) 26 mmol/L 01/23/25 BUN, (9-16) 30 mg/dL H 01/23/25 Creatinine, (0.5-1.4) 1.27 mg/dL 01/23/25 Calcium, (8.4-10.2) 9.7 mg/dL 01/23/25 Urine Protein, (Neg-Trace) Negative mg/dL 10/26/24 Urine Creatinine 47.06 mg/dL 10/26/24 Renal US 12/09/23 Assessment & Plan Assessment & Plan (1) CKD (chronic kidney disease) stage 3, GFR 30-59 ml/min: Code(s): N18.30 - Chronic kidney disease, stage 3 unspecified Category: Medical Plan 64-year-old woman with longstanding diabetes mellitus and obesity has CKD 3B. She probably has underlying diabetic kidney disease. Renal ultrasonogram revealed mild hydronephrosis but I doubt if obstructive uropathy is the main contributing factor. Blood pressure has been well controlled. urine protein excretion < 211 mg in 24 hr urine collection ! 24 urine collection creatinine clearance 88 ml/mt with Sr Cr of 1.4. Optimize blood pressure. Discontinued lisinopril 10 mg daily few months ago and BP is still low but asymptomatic Continue to avoid hypotension and avoid nephrotoxic agents. Goal is to slow the progression of renal disease. I have discussed importance of tight control of blood sugar to slow the progression. She is currently on SGLT2 inhibitor and I would continue the same. Encouraged to increase p.o. fluid intake. All questions were answered. Orders: Orders Total Protein Urine Random 4 Months N18.30 - Chronic kidney disease, stage 3 unspecified UA and rflx microscopic 4 Months N18.30 - Chronic kidney disease, stage 3 unspecified Basic Metabolic Panel 4 Months N18.30 - Chronic kidney disease, stage 3 unspecified Creatinine Urine 4 Months N18.30 - Chronic kidney disease, stage 3 unspecified Coding Level of Care Code Est Pt Level 4 (74382) Diagnoses CKD (chronic kidney disease) stage 3, GFR 30-59 ml/min N18.30
== END 2025-01-30 11:25 | disposition home or self-care (01) ==
LOC: HO.HKA 11:14
PROVIDERS: PCP Physician Assistant; Visit Provider Internal Medicine Hypertension Specialist
DX: N18.30 Chronic kidney disease, stage 3 unspecified (principal)
CPT/HCPCS: 99214

== ENCOUNTER → 2025-01-30 11:13 | Outpatient (BNVA) | payer MEDICARE, MEDICAID, SELFPAY | PROVIDERS: PCP Physician Assistant; Visit Provider Internal Medicine Hypertension Specialist | DX: E11.22 Type 2 diabetes mellitus with diabetic chronic kidney disease (principal); I12.9 Hypertensive chronic kidney disease with stage 1 through stage 4 chronic kidney disease, or unspecified chronic kidney disease; N18.32 Chronic kidney disease, stage 3b; N13.30 Unspecified hydronephrosis; Z79.84 Long term (current) use of oral hypoglycemic drugs | CPT/HCPCS: 99212 ==